=== PATIENT | female | born 1985 | race Caucasian/White ===

== ENCOUNTER → 2020-03-30 | Outpatient (CLI) | payer OTHER, SELFPAY ==
[2020-03-30 14:43] VITALS: BMI 25.4
[2020-04-02 13:44] LABS: HPV APTIMA, High Risk Negative (Negative)
== END | disposition home or self-care (01) ==
LOC: LABSPEC 16:01
PROVIDERS: Referring Provider Nurse Practitioner Women's Health; Visit Provider Nurse Practitioner Women's Health
DX: Z12.4 Encounter for screening for malignant neoplasm of cervix (principal)
CPT/HCPCS: 87624; 88175; G0145

== ENCOUNTER 2021-03-18 08:42 | Emergency (ER) | payer OTHER, SELFPAY ==
[2021-03-18 08:43] VITALS: BP 150/91; PULSE 77; RESP 15; TEMP 36.8; O2SAT 100; BMI 26.5
[2021-03-18 08:55] LABS: Bedside Glucose 88 mg/dL (70-110)
--- NOTE | 2021-03-18 08:56 | EKG12_ITS ---
Test Reason : NEURO S\SX Blood Pressure : / mmHG Vent. Rate : 076 BPM Atrial Rate : 076 BPM P-R Int : 156 ms QRS Dur : 088 ms QT Int : 364 ms P-R-T Axes : 057 056 055 degrees QTc Int : 409 ms Normal sinus rhythm Normal ECG Confirmed by NORA MENENDEZ, DENISHA ([id number]), restaurant expeditor GIAN GUTIERREZ ([id number]) on 03/19/2021 9:32:23 AM Referred By: LETTY Confirmed By:DENISHA MELENDEZ MD
--- NOTE | 2021-03-18 08:56 | CT_ITS ---
STUDY: CT BRAIN WITHOUT CONTRAST REASON FOR EXAM: Female, 35 years old. Headache, paraesthesias. Blurred vision. RADIATION DOSAGE (If Supplied By Facility): CTDIvol = ( 44.99 ) mGy, DLP = ( 745.49 ) mGycm TECHNIQUE: Transaxial CT imaging of the brain was performed without administration of intravenous contrast material. Individualized dose optimization techniques were used for this CT. COMPARISON: No relevant priors. FINDINGS: Normal soft tissue structures. Normal calvarium. Normal size ventricles and extra-axial spaces for the patient''s age. Normal white matter tracts of the cerebral hemispheres. Normal basal ganglia and thalami. Normal brainstem. Normal cerebellum. There is no intracranial hemorrhage. There are no findings of an acute ischemic infarction. Normal visualized paranasal sinuses. CT/Brain/Head without Contrast IMPRESSION: Normal unenhanced CT scan of the brain. Electronically Signed: Kristian Preston MD at 9:33 EST , Service support ,
--- NOTE | 2021-03-18 08:58 | EX.ED.DYSGE1 ---
HPI History of Present Illness Chief Complaint: Numb/Ting Detail of Chief Complaint: Numbness and tingling in the hands and face Informant: patient Narrative Narrative: Patient presents with numbness and tingling in the hands and face that initially started yesterday. Patient states she has had episodes like this 2 or 3 times a year for the last 6 years. She seen her primary care physician and went to ER once but has never had any type of work-up for this. Patient states that in the past she is also passed out with these episodes but not for several years. Normally if she sleeps the episodes resolve. She was concerned today because the symptoms started yesterday and then they started happening again today. Today she complains of a little bit of a headache as well. She denies paresthesias in her feet but only her hands and her face. Patient currently being treated for sinus infection with amoxicillin and she has been on that for about a week. She denies any fevers. Patient states she was tested for COVID several weeks ago and was negative. She has not been vaccinated against COVID-19. Prior similar symptoms: Yes PFSH PFSH Medical History (Updated 03/18/21 @ 10:[address] Little Hanley, DO) PMS (premenstrual syndrome) Home Medications norethindrone 1.5 mg-ethinyl estradiol 30 mcg(21)/iron 75 mg(7) tablet 1 tab PO DAILY #84 tab 04/13/20 [Rx Last Taken Unknown] Allergy/AdvReac Type Severity Reaction Status Date / Time No Known Allergies Allergy Verified 03/18/21 08:45 Family History (Updated 03/30/20 @ 14:46 by Amberly Cook) Grandmother Diabetes Colon cancer Surgical History History of tonsillectomy [place] teeth extracted Social History (Updated 03/30/20 @ 15:23 by Cary Figueroa NP, [employer]) number of children: 0 current occupational status: employed current occupation: [employer] Smoking Status: Never smoker alcohol intake: current alcohol intake frequency: holidays/special occasions only substance use type: does not use seatbelt use: always do you feel safe at home: Yes ROS ROS ED Constitutional Constitutional ED: Reports systems reviewed and no addt'l complaints, except as documented; Denies body ache(s), change in weight or chills Eyes Eyes: Denies acute decrease in peripheral vision, change in vision, double vision or loss of vision ENT ENT ED: Reports none; Denies ear pain, lip swelling, loss taste/smell, neck pain, otalgia or sore throat Cardiovascular Cardiovascular: Reports none; Denies abdominal pain, chest pain with activity, leg edema, lightheadedness, palpitations, rapid heart rate or syncope Respiratory/Chest Respiratory/Chest: Reports none; Denies change in mental status, dry cough, dyspnea, hemoptysis, shortness of breath at rest or shortness of breath with exertion Gastrointestinal Gastrointestinal: Reports none; Denies abdominal pain, change in stool character, diarrhea, hematemesis, hematochezia, melena, rectal bleeding or vomiting Genitourinary Genitourinary ED: Reports none; Denies abdominal discomfort, anuria, dysuria, genital pain or polyuria Musculoskeletal Musculoskeletal: Reports none; Denies arthralgias, back pain, difficulty walking, extremity pain, muscle weakness or myalgias Integumentary Reports none; Denies abscess or rash Neurologic Neurologic: Reports none, headache(s) and paresthesias; Denies abnormal gait, confusion, focal weakness, frequent falls, loss of vision, numbness, radicular pain, vertigo or weakness Psychiatric Psychiatric: Reports systems reviewed and no addt'l complaints, except as documented and none; Denies behavioral changes, confusion, difficulty concentrating, hallucinations, suicidal ideation, tactile hallucinations or visual hallucinations Endocrine Endocrinology: Denies none, cold intolerance, excessive sweating, fatigue or heat intolerance Hematologic/Lymphatic Hematologic/Lymphatic: Reports none; Denies anemia, easy bleeding or easy bruising Allergic/Immunologic Allergic/Immunologic ED: Denies as per HPI, none, lip swelling, mouth swelling, throat swelling, tongue swelling or hives EXAM Physical Exam Const Vital Signs: 03/18/21 08:43 Temperature 98.3 F Temperature Source Temporal Pulse Rate 77 Respiratory Rate 15 Blood Pressure 150/91 H Blood Pressure Mean 110 Pulse Ox 100 Oxygen Delivery Method Room Air Positive well nourished and well developed General Appearance ED: well developed and NAD HEENT Reports TM's clear and moist mucous membranes normocephalic and atraumatic; Negative for trauma or tenderness Tympanic Membrane ED: Yes TM's clear Eyes PERRL and EOMs intact bilaterally General Eye ED: Negative for pale conjunctiva or scleral icterus Neck no lymphadenopathy, supple and no JVD General: Negative for tenderness Chest Wall inspection of chest normal and palpation of chest normal Chest: Negative for tenderness Resp normal respiratory effort and clear to auscultation bilaterally Effort and Inspection: Negative for respiratory distress or pain with movement Auscultation: Negative for rhonchi, wheezes or diminished lung sounds Cardio regular rate, regular rhythm, S1 normal heart sound, S2 normal heart sound and no murmurs Peripheral Pulses: pulses 2+ throughout GI normal to inspection, nondistended, normoactive bowel sounds, soft to palpation, non-tender, non-distended and no masses Back/Spine no CVA tenderness and no thoracic nor lumbar tenderness Extremity normal to inspection General Extremety ED: Negative for edema General Extremity: Negative for edema Neuro oriented x3, CN's II-XII intact bilaterally, no sensory deficits noted and gait normal Neuro Narrative: No focal neurologic deficits noted. Fundi benign. Sensorium / Orientation: awake, alert, oriented to person, oriented to place and oriented to time Motor Exam: strength 5/5 throughout and strength abnormal Psych mental status grossly normal Skin no rashes or lesions noted and no wounds MDM MDM MDM Narrative Medical decision making narrative: IV line established. Patient placed on a laboratory monitor. Lab work-up was unremarkable. COVID-[address] scan of the brain without contrast was unremarkable. Initially wanted to treat her like a possible complex migraine and gave her Reglan, Benadryl, and Toradol as well as a liter of fluid however she refused the medications as she stated that her headache was minimal currently. At this point etiology of patient's symptomatology unclear although it has been ongoing for 6 years or so. I suspect possibility of a complex migraine. Patient advised to follow-up with her primary care physician and possible neurology referral if symptoms persist. Lab Data Attestation: I reviewed the patient's lab results. Labs: Laboratory Results - last 24 hr 03/18/21 03/18/21 03/18/21 08:49 09:08 09:08 WBC 7.3 RBC 3.92 L Hgb 11.5 L Hct 35.7 L MCV 91.1 MCH 29.3 MCHC 32.2 RDW Std Deviation 42.8 RDW Coeff of Juan 13.1 Plt Count 354 MPV 9.1 Immature Gran % (Auto) 0.300 Neut % (Auto) 73.8 H Lymph % (Auto) 19.1 [place] % (Auto) 5.4 Eos % (Auto) 1.1 Baso % (Auto) 0.3 Absolute Neuts (auto) 5.4 Absolute Lymphs (auto) 1.39 Nucleated RBC % 0 Sodium 139 Potassium 3.9 Chloride 108 H Carbon Dioxide 25.0 Anion Gap 6 BUN 14 Creatinine 0.75 Estim Creat Clear Calc 88.26 Est GFR (MDRD) Af Amer 114 Est GFR (MDRD) Non-Af 94 BUN/Creatinine Ratio 18.7 Glucose 96 Calcium 9.0 Serum , Qual POC Glucose 88 03/18/21 09:08 WBC RBC Hgb Hct MCV MCH MCHC RDW Std Deviation RDW Coeff of Juan Plt Count MPV Immature Gran % (Auto) Neut % (Auto) Lymph % (Auto) [place] % (Auto) Eos % (Auto) Baso % (Auto) Absolute Neuts (auto) Absolute Lymphs (auto) Nucleated RBC % Sodium Potassium Chloride Carbon Dioxide Anion Gap BUN Creatinine Estim Creat Clear Calc Est GFR (MDRD) Af Amer Est GFR (MDRD) Non-Af BUN/Creatinine Ratio Glucose Calcium Serum , Qual NEGATIVE POC Glucose Radiography Diagnostic Testing: Clinical Impression(s) from Imaging Studies Brain CT 03/18/21 08:56 IMPRESSION: Normal unenhanced CT scan of the brain. Electronically Signed: Kristian Preston MD at 9:33 EST , Service support , EKG Initial EKG: Attestation: I personally reviewed and interpreted this EKG as follows: Comments: Sinus rhythm with a ventricular rate of 76 bpm with no acute ST segment change Discharge Plan Triage Chief Complaint: Numb/Ting ED Provider: Little Hanley Dx/Rx/DC Orders Clinical Impression: Paresthesias Instructions: ED Paraesthesias Prescriptions: No Action norethindrone-e.estradiol-iron [ (28)] 1.5 mg-30 mcg (21)/75 mg (7) tablet 1 tab PO DAILY Qty: 84 RF: 4 Primary Care Provider: Bushra Albrecht Referrals: Bushra Albrecht MD [Primary Care Provider] - 3-5 Days Disposition Disposition: Home, Self Care
[2021-03-18 09:20] LABS: Absolute Lymphocyte Count 1.39 X10^3/uL (0.83-4.51); Absolute Neutrophil Count 5.4 X10^3/uL (2.0-7.7); Basophil# 0.02 X10^3/uL; Basophil% 0.3 % (0-1); Eosinophil# 0.08 X10^3/uL; Eosinophils% 1.1 % (0-5); Hematocrit 35.7 % (37-47); Hemoglobin 11.5 g/dL (12.0-15.0); Lymphocyte # 1.39 X10^3/ul (0.83-4.51); Lymphocyte % 19.1 % (19-41); Mean Corp Hgb Conc 32.2 g/dL (32-36); Mean Corpuscular Hgb 29.3 pg (27.0-32.0); Mean Corpuscular Volume 91.1 fL (81-99); Mean Platelet Vol. 9.1 fl (6.2-12.0); Monocyte# 0.39 X10^3/uL; Monocyte% 5.4 % (0-10); NRBC Flagged by Analyzer 0 % (0-5); Neutrophil # 5.37 X10^3/uL (2.7-7.7); Neutrophil % 73.8 % (47-70); Platelet Count 354 K/mm3 (150-450); RBC Distribution Width CV 13.1 % (11.6-14.6); RBC Distribution Width SD 42.8 fl (35.1-43.9); Red Blood Count 3.92 M/mm3 (4.2-5.4); White Blood Count 7.3 K/mm3 (4.4-11.0)
[2021-03-18 09:34] LABS: Anion Gap 6 (5-15); BUN 14 mg/dL (7-18); BUN/Creat Ratio 18.7 RATIO (10-20); Chloride 108 mmol/L (98-107); Creatinine, Serum 0.75 mg/dL (0.55-1.02); EST Glomerular Filtration Rate 94 mL/min (>60); Est Glom Filt Rate - Afr Amer 114 mL/min (>60); Estimated Creatinine Clearance 88.26 ml/min; Glucose 96 mg/dL (74-106); Potassium 3.9 mmol/L (3.5-5.1); Sodium Level 139 mmol/L (136-145)
[2021-03-18 09:58] LABS: Internal QC Validated? YES +Cl - CLEAR BKGD; Pregnancy, Serum, hCG Quali. NEGATIVE Negative
[2021-03-18 10:11] VITALS: BP 125/81; PULSE 69; RESP 13; O2SAT 99
== END 2021-03-18 10:19 | disposition home or self-care (01) ==
PROVIDERS: Emergency Provider Emergency Medicine; PCP Family Medicine; Visit Provider Emergency Medicine
DX: R20.2 Paresthesia of skin (principal)
CPT/HCPCS: 70450; 80048; 82962; 84703; 85025; 87426; 93005; 99284; A4216

== ENCOUNTER 2021-06-16 16:27 | Outpatient (CLI) | payer OTHER, SELFPAY ==
[2021-06-22 20:04] LABS: HPV APTIMA, High Risk Negative (Negative)
== END 2021-06-16 23:59 | disposition home or self-care (01) ==
PROVIDERS: PCP Family Medicine; Referring Provider Nurse Practitioner Women's Health; Visit Provider Nurse Practitioner Women's Health
DX: Z12.4 Encounter for screening for malignant neoplasm of cervix (principal)
CPT/HCPCS: 87624; 88175; G0145

== ENCOUNTER 2022-04-01 10:08 | Emergency (ER) | payer OTHER, SELFPAY ==
[2022-04-01 10:09] VITALS: BP 135/78; PULSE 82; RESP 17; TEMP 35.8; O2SAT 97; BMI 22.4
--- NOTE | 2022-04-01 10:27 | EKG12_ITS ---
Test Reason : Blood Pressure : / mmHG Vent. Rate : 080 BPM Atrial Rate : 080 BPM P-R Int : 136 ms QRS Dur : 076 ms QT Int : 360 ms P-R-T Axes : 049 049 055 degrees QTc Int : 415 ms Normal sinus rhythm Normal ECG Confirmed by LEE MENENDEZ, ARTUR ([id number]), department editor GIAN GUTIERREZ ([id number]) on 04/05/2022 8:59:31 AM Referred By: BERNABE Confirmed By:ARTUR HOWARD MD
--- NOTE | 2022-04-01 10:38 | EDS_ITS ---
HPI History of Present Illness Chief Complaint: Palpitations Informant: patient Narrative Narrative: Presents with intermittent palpitations on and off for past 2 days lasting at most 20 minutes occasional lightheaded symptoms. Previous similar symptoms in the past. She has had migraine and few syncopes in the past she has had EEG studies as an outpatient were negative. A week ago states had a migraine symptoms with syncope resolved. Denies recent cough surgeries immobilizations. No history of PE or DVT. Denies dyspnea. Denies any urinary symptoms. Denies recent vomiting or diarrhea. She states had EKGs in the past however has never had Holter monitor. She currently manages her symptoms by her PCP. Prior similar symptoms: Yes PFSH PFSH Medical History Anxiety Migraines PMS (premenstrual syndrome) Home Medications fluoxetine 10 mg capsule (Prozac) 10 mg PO DAILY 06/16/21 [History Last Taken Unknown] topiramate 50 mg tablet (Topamax) 50 mg PO DAILY 06/16/21 [History Last Taken Unknown] valacyclovir 500 mg tablet (Valtrex) 500 mg PO DAILY #90 tabs 06/16/21 [Rx Last Taken Unknown] Allergy/AdvReac Type Severity Reaction Status Date / Time No Known Allergies Allergy Verified 04/01/22 10:08 Family History Grandmother Diabetes Colon cancer Surgical History History of tonsillectomy [place] teeth extracted Social History number of children: 0 current occupational status: employed current occupation: [employer] Smoking Status: Never smoker alcohol intake: current alcohol intake frequency: holidays/special occasions only substance use type: does not use seatbelt use: always do you feel safe at home: Yes ROS ROS ED Constitutional Constitutional ED: Denies chills, fever(s) or sweats Eyes Eyes: Denies change in vision ENT ENT ED: Denies dysphagia or sore throat Cardiovascular Cardiovascular: Reports palpitations; Denies chest pain, leg edema or racing heartbeat Respiratory/Chest Respiratory/Chest: Denies cough, dyspnea or dyspnea on exertion Gastrointestinal Gastrointestinal: Denies abdominal pain, diarrhea, nausea or vomiting Genitourinary Genitourinary ED: Denies dysuria, hematuria or urinary frequency Musculoskeletal Musculoskeletal: Denies back pain, extremity pain or neck pain Integumentary Denies rash or wounds Neurologic Neurologic: Denies headache(s), paresthesias or weakness EXAM Physical Exam Const Vital Signs: 04/01/22 10:09 04/01/22 10:25 04/01/22 12:08 Temperature 96.4 F L Temperature Source Temporal Pulse Rate 82 70 Respiratory Rate 17 16 Respiratory Effort Normal Non-Labored Respiratory Pattern Normal Blood Pressure 135/78 H 126/89 H Blood Pressure Mean 97 Pulse Ox 97 98 Oxygen Delivery Method Room Air Positive well nourished and well developed General Appearance ED: well developed and NAD HEENT Reports moist mucous membranes normocephalic and atraumatic Eyes PERRL, EOMs intact bilaterally and conjunctivae normal General Eye ED: Yes normal appearance of both eyes Neck no lymphadenopathy and supple General: Negative for tenderness Chest Wall Chest: Negative for tenderness Resp normal respiratory effort and normal air movement Effort and Inspection: symmetric chest movement; Negative for respiratory distress Cardio regular rate, regular rhythm and no murmurs Peripheral Pulses: pulses 2+ throughout GI normal to inspection, nondistended, normoactive bowel sounds and non-tender Palpation: Negative for guarding or rebound tenderness present Back/Spine no CVA tenderness and no thoracic nor lumbar tenderness Extremity normal to inspection General Extremety ED: Negative for edema or tenderness General Extremity: Negative for edema Neuro oriented x3, CN's II-XII intact bilaterally and no sensory deficits noted Sensorium / Orientation: awake and alert Skin no rashes or lesions noted and no wounds MDM MDM MDM Narrative Medical decision making narrative: Patient recurrent intermittent palpitations last 4 days asymptomatic during my evaluation. Differentials dysrhythmia is from SVT, A. fib, a flutter, VT, V. tach. She has no dyspnea, PERC criteria negative therefore less likely PE concerns. We will check labs for electrolyte abnormalities. Her EKG is sinus rhythm. Labs are all normal. Asymptomatic reevaluation. She is set up for 48-hour Holter monitoring with outpatient follow-up. Return precaution discussed. All questions were answered. Lab Data Attestation: I reviewed the patient's lab results. Labs: Laboratory Results - last 24 hr 02/05/1904/01/22 04/01/22 10:40 10:40 10:40 WBC 6.6 RBC 3.90 L Hgb 11.8 L Hct 36.9 L MCV 94.6 MCH 30.3 MCHC 32.0 RDW Std Deviation 43.8 RDW Coeff of Juan 12.6 Plt Count 327 MPV 9.0 Immature Gran % (Auto) 0.300 Neut % (Auto) 68.8 Lymph % (Auto) 22.0 [place] % (Auto) 4.9 Eos % (Auto) 3.2 Baso % (Auto) 0.8 Absolute Neuts (auto) 4.5 Absolute Lymphs (auto) 1.45 Nucleated RBC % 0 Sodium 142 Potassium 3.9 Chloride 108 H Carbon Dioxide 24.0 Anion Gap 10 BUN 12 Creatinine 0.78 Estim Creat Clear Calc 84.07 Est GFR (MDRD) Af Amer 109 Est GFR (MDRD) Non-Af 90 BUN/Creatinine Ratio 15.5 Glucose 103 Calcium 8.8 Magnesium 2.4 TSH 0.85 Serum , Qual NEGATIVE EKG Initial EKG: Attestation: I personally reviewed and interpreted this EKG as follows: Comments: Sinus rate of 80, no ST or T wave changes QTC 415. Discharge Plan Triage Chief Complaint: Palpitations ED Provider: Sharan Peralta Dx/Rx/DC Orders Clinical Impression: Palpitation, History of migraine, History of syncope Instructions: Causes of Syncope, ED Palpitations Prescriptions: No Action fluoxetine [Prozac] 10 mg capsule 10 mg PO DAILY topiramate [Topamax] 50 mg tablet 50 mg PO DAILY valacyclovir [Valtrex] 500 mg tablet 500 mg PO DAILY Qty: 90 3RF Primary Care Provider: Bushra Albrecht Referrals: Bushra Albrecht MD [Primary Care Provider] - 3-5 Days Activity Restrictions/Additional Instructions: Laboratory studies are normal. 48-hour Holter monitor placed for you. Follow- up with your doctor. Return if recurrent or worsening symptoms. Disposition Disposition: Home, Self Care Discharge Date/Time: 04/01/22 12:28
[2022-04-01 10:51] LABS: Absolute Lymphocyte Count 1.45 X10^3/uL (0.83-4.51); Absolute Neutrophil Count 4.5 X10^3/uL (2.0-7.7); Basophil# 0.05 X10^3/uL; Basophil% 0.8 % (0-1); Eosinophil# 0.21 X10^3/uL; Eosinophils% 3.2 % (0-5); Hematocrit 36.9 % (37-47); Hemoglobin 11.8 g/dL (12.0-15.0); Lymphocyte # 1.45 X10^3/ul (0.83-4.51); Mean Corpuscular Hgb 30.3 pg (27.0-32.0); Mean Corpuscular Volume 94.6 fL (81-99); Monocyte# 0.32 X10^3/uL; Monocyte% 4.9 % (0-10); NRBC Flagged by Analyzer 0 % (0-5); Neutrophil # 4.54 X10^3/uL (2.7-7.7); Neutrophil % 68.8 % (47-70); Platelet Count 327 K/mm3 (150-450); RBC Distribution Width CV 12.6 % (11.6-14.6); RBC Distribution Width SD 43.8 fl (35.1-43.9); White Blood Count 6.6 K/mm3 (4.4-11.0)
[2022-04-01 11:13] LABS: Anion Gap 10 (5-15); BUN 12 mg/dL (7-18); BUN/Creat Ratio 15.5 RATIO (10-20); Calcium,Total 8.8 mg/dL (8.5-10.1); Chloride 108 mmol/L (98-107); Creatinine, Serum 0.78 mg/dL (0.55-1.02); EST Glomerular Filtration Rate 90 mL/min (>60); Est Glom Filt Rate - Afr Amer 109 mL/min (>60); Estimated Creatinine Clearance 84.07 ml/min; Glucose 103 mg/dL (74-106); Magnesium 2.4 mg/dL (1.6-2.6); Potassium 3.9 mmol/L (3.5-5.1); Sodium Level 142 mmol/L (136-145); Thyroid Stim Hormone (TSH) 0.85 uIU/mL (0.358-3.74)
[2022-04-01 11:58] LABS: Internal QC Validated? YES +Cl - CLEAR BKGD; Pregnancy, Serum, hCG Quali. NEGATIVE Negative
[2022-04-01 12:08] VITALS: BP 126/89; PULSE 70; RESP 16; O2SAT 98
--- NOTE | 2022-04-01 12:25 | ED.RN ---
tammie from resp in to place 48hr holter and to give instructions. dc instructions given
== END 2022-04-01 12:28 | disposition home or self-care (01) ==
PROVIDERS: Emergency Provider Emergency Medicine; PCP Family Medicine; Visit Provider Emergency Medicine
DX: R00.2 Palpitations (principal); G43.909 Migraine, unspecified, not intractable, without status migrainosus; R55 Syncope and collapse
CPT/HCPCS: 80048; 83735; 84443; 84703; 85025; 93005; 99284; A4216

== ENCOUNTER → 2022-04-01 | Outpatient (CLI) | payer OTHER, SELFPAY | END | disposition home or self-care (01) | LOC: CVS 11:37 | PROVIDERS: PCP Family Medicine; Visit Provider Emergency Medicine | DX: R00.2 Palpitations (principal) | CPT/HCPCS: 93225; 93226 ==

== ENCOUNTER → 2022-06-21 | Outpatient (CLI) | payer OTHER, SELFPAY ==
[2022-06-21 17:08] LABS: HIV - WCH Non-Reactive (Nonreactive); Hepatitis C Antibody Non-Reactive (Nonreactive); Syphilis Antibodies Non-reactive
[2022-06-24 04:07] LABS: Chlamydia By Nucleic Acid AMP Negative (Negative); Gonococcus By Nucleic Acid AMP Negative (Negative)
[2022-06-28 14:09] LABS: HPV APTIMA, High Risk Negative (Negative)
== END | disposition home or self-care (01) ==
PROVIDERS: PCP Family Medicine; Referring Provider Nurse Practitioner Women's Health; Visit Provider Nurse Practitioner Women's Health
DX: Z12.4 Encounter for screening for malignant neoplasm of cervix (principal); Z20.2 Contact with and (suspected) exposure to infections with a predominantly sexual mode of transmission
CPT/HCPCS: 36415; 86703; 86780; 86803; 87491; 87591; 87624; 88175; G0145

== ENCOUNTER → 2023-07-17 | Outpatient (CLI) | payer OTHER, SELFPAY ==
[2023-07-17 07:47] LABS: Absolute Neutrophil Count 3.5 X10^3/uL (2.0-7.7); Basophil# 0.03 X10^3/uL; Basophil% 0.5 % (0-1); Eosinophil# 0.18 X10^3/uL; Hematocrit 36.6 % (37-47); Hemoglobin 11.6 g/dL (12.0-15.0); Lymphocyte % 31.7 % (19-41); Mean Corp Hgb Conc 31.7 g/dL (32-36); Mean Corpuscular Hgb 29.5 pg (27.0-32.0); Mean Corpuscular Volume 93.1 fL (81-99); Mean Platelet Vol. 8.5 fl (6.2-12.0); Monocyte# 0.38 X10^3/uL; Monocyte% 6.3 % (0-10); NRBC Flagged by Analyzer 0 % (0-5); Neutrophil # 3.49 X10^3/uL (2.7-7.7); Neutrophil % 58.3 % (47-70); Platelet Count 341 K/mm3 (150-450); RBC Distribution Width SD 44.6 fl (35.1-43.9); Red Blood Count 3.93 M/mm3 (4.2-5.4)
[2023-07-17 08:22] LABS: Estradiol 59.9 pg/mL; Follicle Stimulating Hormone 7.4 mIU/mL; T4 Free Direct 0.85 ng/dL (0.76-1.46); Thyroid Stim Hormone (TSH) 1.16 uIU/mL (0.358-3.74)
[2023-07-24 01:06] LABS: Testosterone Free 1.2 pg/mL (0.0-4.2); Thyroid Peroxidase AB < 9 IU/mL (0-34)
== END | disposition home or self-care (01) ==
LOC: PAVLAB 07:31
PROVIDERS: PCP Family Medicine; Referring Provider Nurse Practitioner Women's Health; Visit Provider Nurse Practitioner Women's Health
DX: Z13.29 Encounter for screening for other suspected endocrine disorder (principal); N91.5 Oligomenorrhea, unspecified; L70.9 Acne, unspecified; Z13.21 Encounter for screening for nutritional disorder
CPT/HCPCS: 36415; 82306; 82670; 83001; 84402; 84439; 84443; 85025; 86376

== ENCOUNTER 2024-01-20 08:53 | Emergency (ER) | payer OTHER, SELFPAY ==
[2024-01-20 08:53] VITALS: BP 147/100; BP 149/104; PULSE 109; PULSE 114; RESP 16; RESP 20; TEMP 36.3; O2SAT 100; O2SAT 97; BMI 27.3
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
[2024-01-20 09:32] LABS: Absolute Lymphocyte Count 1.65 X10^3/uL (0.83-4.51); Absolute Neutrophil Count 5.8 X10^3/uL (2.0-7.7); Basophil# 0.03 X10^3/uL; Basophil% 0.4 % (0-1); Eosinophil# 0.14 X10^3/uL; Eosinophils% 1.7 % (0-5); Hematocrit 37.5 % (37-47); Hemoglobin 12.2 g/dL (12.0-15.0); Lymphocyte # 1.65 X10^3/ul (0.83-4.51); Lymphocyte % 20.4 % (19-41); Mean Corp Hgb Conc 32.5 g/dL (32-36); Mean Corpuscular Hgb 29.9 pg (27.0-32.0); Mean Corpuscular Volume 91.9 fL (81-99); Mean Platelet Vol. 8.6 fl (6.2-12.0); Monocyte# 0.44 X10^3/uL; Monocyte% 5.5 % (0-10); NRBC Flagged by Analyzer 0 % (0-5); Neutrophil # 5.79 X10^3/uL (2.7-7.7); Neutrophil % 71.8 % (47-70); Platelet Count 322 K/mm3 (150-450); RBC Distribution Width CV 13.4 % (11.6-14.6); RBC Distribution Width SD 45.3 fl (35.1-43.9); Red Blood Count 4.08 M/mm3 (4.2-5.4); White Blood Count 8.1 K/mm3 (4.4-11.0)
[2024-01-20 09:42] LABS: Internal QC Validated? YES +Cl - CLEAR BKGD; Pregnancy, Serum, hCG Quali. NEGATIVE Negative
[2024-01-20 09:49] LABS: Anion Gap 6 (5-15); BUN 11 mg/dL (7-18); BUN/Creat Ratio 12.8 RATIO (10-20); Calcium,Total 9.1 mg/dL (8.5-10.1); Chloride 107 mmol/L (98-107); Creatinine, Serum 0.86 mg/dL (0.55-1.02); EST Glomerular Filtration Rate 79 mL/min (>60); Est Glom Filt Rate - Afr Amer 96 mL/min (>60); Glucose 102 mg/dL (74-106); Sodium Level 138 mmol/L (136-145)
[2024-01-20 09:53] LABS: Alcohol, Blood (Medical)-Serum < 3.0 mg/dL
[2024-01-20 09:58] LABS: Amphetamine Urine VISTA NEGATIVE (<1000 ng/mL); Barbiturate Urine VISTA NEGATIVE (< 200 ng/mL); Benzodiazepine Urine VISTA NEGATIVE (< 200 ng/mL); Cocaine Urine VISTA NEGATIVE (< 300 ng/mL); Ecstacy Urine VISTA NEGATIVE (< 500 ng/mL); Methadone Urine VISTA NEGATIVE (< 300 ng/mL); PCP Urine VISTA NEGATIVE (< 25 ng/mL); THC Urine VISTA NEGATIVE (< 50 ng/mL); Vista UDS pH Range 7
[2024-01-20 11:31] VITALS: BP 128/64; PULSE 78; RESP 16; TEMP 36.6; O2SAT 99
== END 2024-01-20 11:33 | disposition home or self-care (01) ==
PROVIDERS: Emergency Provider Emergency Medicine; PCP Family Medicine; Visit Provider Emergency Medicine
DX: F43.0 Acute stress reaction (principal); Z63.0 Problems in relationship with spouse or partner; F41.9 Anxiety disorder, unspecified; F32.A Depression, unspecified
CPT/HCPCS: 80048; 80307; 82077; 84703; 85025; 99283

== ENCOUNTER → 2024-05-21 | Outpatient (CLI) | payer BC, SELFPAY ==
--- NOTE | 2024-05-21 16:20 | RAD_ITS ---
EXAM: Abdomen single view CLINICAL HISTORY: Sitz markers day 3 COMPARISON: None available TECHNIQUE: Single supine AP view of the abdomen FINDINGS: Approximately 8 Sitz markers are seen at the right colon. Approximately 12 markers are seen at the left colon. 1 marker is seen at the sigmoid. Gas and stool within the colon appears moderate at the ascending colon. No gaseous distention of bowel. Bilateral pelvic phleboliths. RAD/Abdomen Single View IMPRESSION: Sitz markers as above. Reading Location: [id number]
== END | disposition home or self-care (01) ==
LOC: RAD 16:16
PROVIDERS: PCP Family Medicine; Referring Provider Student in an Organized Health Care Education/Training Program; Visit Provider Student in an Organized Health Care Education/Training Program
DX: K59.00 Constipation, unspecified (principal)
CPT/HCPCS: 74018

== ENCOUNTER → 2024-05-23 | Outpatient (CLI) | payer BC, SELFPAY ==
--- NOTE | 2024-05-23 16:32 | RAD_ITS ---
EXAM: Abdominal single-view x-ray CLINICAL HISTORY: Sitz markers day 5 COMPARISON: 05/21/2024 TECHNIQUE: 2 supine AP views to include the entire abdomen and pelvis FINDINGS: Progression of Sitz markers. 1 marker remains at the proximal transverse colon. 8 markers are seen at the left colon. 3 markers within the sigmoid/rectum. Overall there is a dlqammew-nt-srcco amount of colonic stool. No gaseous distention of bowel. Pelvic phleboliths noted. RAD/Abdomen Single View IMPRESSION: Progression of markers as above. Cakuclqo-yu-kinml amount of colonic stool. Reading Location: [id number]
== END | disposition home or self-care (01) ==
LOC: RAD 16:29
PROVIDERS: PCP Family Medicine; Referring Provider Student in an Organized Health Care Education/Training Program; Visit Provider Student in an Organized Health Care Education/Training Program
DX: K59.00 Constipation, unspecified (principal)
CPT/HCPCS: 74018

== ENCOUNTER 2024-08-14 07:52 | Day surgery (SDC) | payer BC, SELFPAY ==
--- NOTE | 2024-08-08 13:55 | PAT.ANESEVAL ---
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 When Was Last Pacemaker Check QUESTION #4 FULL TEXT: You/Your Family Experience fever (hyperthermia) with Anesthesia Last Oral Intake Last Oral intake: Last Oral Intake NPO since Meds taken in AM with sips of water? Meds patient instructed to take am of surgery PONV PONV - assembler dc field yoke: PONV - assembler dc field yoke Female Yes 08/08/24 11:45 HX of Motion Sickness No 08/08/24 11:45 HX of N/V After Surgery No 08/08/24 11:45 Non-Smoker Yes 08/08/24 11:45 Duration of Surgery greater No 08/08/24 11:45 than 60 minutes Number of Risk Factors 2 08/08/24 11:45 PONV Score Moderate Risk 08/08/24 11:45 Height & Weight Height & Weight: Anesthesia: Height & Weight Height 5 ft 3 in 05/06/24 11:31 Respiratory Assessment Respiratory Assessment - assembler dc field yoke: Respiratory Tract Infection Hx - assembler dc field yoke Hx Respiratory Tract Infection No 08/08/24 11:45 STOP Sleep Apnea STOP Sleep Apnea - assembler dc field yoke: STOP Sleep Apnea - assembler dc field yoke Hx Hypertension No 08/08/24 11:45 Hx Sleep Apnea No 08/08/24 11:45 CPAP BIPAP Do you snore loudly (louder No 08/08/24 11:45 than talking or can be heard Do you often feel tired/ No 08/08/24 11:45 fatigued/ sleepy during daytime? Has anyone observed you stop No 08/08/24 11:45 breathing during sleep? STOP Results Negative 08/08/24 11:45 QUESTION #5 FULL TEXT : Do you snore loudly (louder than talking or can be heard through closed doors)? 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 Specify any problems Hx of Preganancy in last 3 No 08/08/24 11:45 Months Nurse Filling Out Transfusion VCHRISTIN 08/08/24 11:45 & Questions: Date: 08/08/24 08/08/24 11:45 Time: 11:46 08/08/24 11:45 Patient unable to answer at this time (ie. confused, unrespo /Reproduction History /Reproductive History - assembler dc field yoke: /Reproductive Hx- assembler dc field yoke Hx Now No 08/08/24 11:45 Gestational Age (in weeks): EDC: Hx Hx Para Hx Section SAB No 08/08/24 11:45 [facility], [facility] Medical History (Updated 08/08/24 @ 11:45 by Jenniffer Kat) Wears glasses Gastric reflux Non-smoker History of Holter monitoring Anxiety Migraines PMS (premenstrual syndrome) Home Medications ?Medication ?Instructions ?Recorded ?Last Taken ?Type cholecalciferol (vitamin D3) 50 50 mcg PO DAILY 04/21/23 Unknown History mcg (2,000 unit) tablet (Vitamin D3) cyanocobalamin (vitamin B-12) 2,500 mcg sublingual DAILY 04/21/23 Unknown History 2,500 mcg sublingual tablet (Vitamin B-12) ferrous sulfate 325 mg (65 mg 325 mg PO DAILY 04/21/23 08/05/24 History iron) tablet guanfacine 2 mg tablet,extended 2 mg PO DAILY 04/21/23 08/05/24 History release 24 hr hydroxyzine HCl 25 mg tablet 25 mg PO BID PRN anxiety 04/21/23 Unknown History polyethylene glycol 3350 17 17 g PO DAILY PRN constipation 04/21/23 Unknown History gram/dose oral powder (Miralax) amitriptyline 75 mg tablet 75 mg PO QHS 06/26/23 Unknown History valacyclovir 500 mg tablet 500 mg PO DAILY #90 tabs 06/26/23 Unknown Rx (Valtrex) magnesium 250 mg tablet 250 mg PO QHS 08/08/24 Unknown History Allergy/AdvReac Type Severity Reaction Status Date / Time No Known Allergies Allergy Verified 08/08/24 11:37 Family History Grandmother Diabetes Colon cancer Surgical History [place] teeth extracted History of tonsillectomy Social History (Updated 07/08/24 @ 14:27 by Ivelisse Maria) number of children: 0 current occupational status: employed current occupation: [employer] sexually active: Yes Smoking Status: Never smoker second hand exposure: No alcohol intake: current alcohol intake frequency: holidays/special occasions only substance use type: does not use caffeine: Yes what type of physical activity do you participate in: walking and bicycling frequency: 3-4 times per week seatbelt use: always do you feel safe at home: Yes additional social history: Single Audit: Pertinent Findings Pertinent Findings EKG Perinent findings: 04/01/2022. Normal sinus rhythm 80 bpm. Recommendation Anesthesia Recommendation Anesthesia recommendation: OPTIMIZED for anesthesia
[2024-08-14] VITALS (7 sets, daily range): BP systolic 102–119; BP diastolic 64–74; PULSE 77–93; RESP 16; TEMP 36.7–36.9; O2SAT 100; BMI 26.5
--- OUTSIDE RECORDS SUMMARY | 2024-08-14 08:15 | XMS RPT_ITS | CCD ---
Author Organization [facility] Care Team Providers Care Skinner Pelts Name Role Phone Bushra Lucio Unavailable Unavailable Unavailable Dr. Bushra Lucio Primary Care Provider Dr. Bushra Lucio Referring Provider Carolina FARM OPERATIONS MANAGER, ROBBIE Townsend Attending Provider [phone] Khadijah, Dr. Bushra Jacob Referring Un available Longsdorf, Dr. Bushra Jacob Primary Care Un available Longsdorf, Dr. Bushra Jacob Attending Un available Longsdorf, Dr. Bushra Jacob Referring Un available Longsdorf, Dr. Bushra Jacob Attending Un available Longsdorf, Dr. Bushra Jacob Primary Care Un available Longsdorf, Dr. Bushra Jacob Referring Un available Longsdorf, Dr. Bushra Jacob Attending Un available Longsdorf, Dr. Bushra Jacob Primary Care Un available Longsdorf, Dr. Bushra Jacob Primary Care Un available Longsdorf, Dr. Bushra Jacob Referring Un available Longsdorf, Dr. Bushra Jacob Attending Un available Longsdorf, Dr. Bushra Jacob Primary Care Un available Longsdorf, Dr. Bushra Jacob Referring Un available Longsdorf, Dr. Bushra Jacob Attending Un available Longsdorf, Dr. Bushra Jacob Primary Care Un available Longsdorf, Dr. Bushra Jacob Referring Un available Longsdorf, Dr. Bushra Jacob Attending Un available Longsdorf, Dr. Bushra Jacob Primary Care Un available Longsdorf, Dr. Bushra Jacob Referring Un available Longsdorf, Dr. Bushra Jacob Attending Un available Bushra Lucio MD Primary Care Provider Dr. Bushra Lucio Primary Care Provider Dr. Bushra Lucio Referring Provider Carolina FARM OPERATIONS MANAGER, FARM OPERATIONS MANAGER-C Cary Attending Provider FABIO, SHERIE Attending Unavailable LONGSDORF, BUSHRA Primary Care Unavailable FABIO, SHERIE Referring Unavailable FABIO, SHERIE Attending Unavailable SELF, SELF Referring Unavailable LONGSDORF, BUSHRA Primary Care Unavailable FABIO, SHERIE Attending Unavailable LONGGORDY, BUSHRA Referring Unavailable KHADIJAH, BUSHRA Primary Care Unavailable Bushra Lucio MD Primary Care Provider Bushra Lucio MD Unavailable BUSHRA LUCIO Primary Care Unavailab le LONGGORDY, BUSHRA Hernandez Attending Unavailab le LONGSDBUSHRA PASCUAL Primary Care Unavailab le LONGSDTAMI, BUSHRA Hernandez Attending Unavailab le LONGSDORF, BUSHRA Hernandez Primary Care Unavailab JULIO CÉSAR Whiteside Attending Unava ilable BUSHRA LUCIO Primary Care JULIO CÉSAR Oswald Attending Unava ilable BUSHRA LUCIO Primary Care Dr. Bushra Thornton MD Primary Care Provide r Dr. Bushra Lucio MD Referring Provider Lia CAMACHO-CKaylin Attending Provider Hanh Limon Attending Provider Hanh Limon Referring Provider Khadijah, Bushra Referring Unavailable Longsdorf, Bushra Primary Care Unavailable Jessica Mueller Attending Unavailabl e Longsdorf, Bushra Primary Care Unavailable Longsdorf, Bushra Referring Unavailable Kaylin Fitzgerald Attending Unavailable Longsdorf, Bushra Primary Care Unavailable Longsdorf, Bushra Referring Unavailable Kaylin Fitzgerald Attending Unavailable Longsdorf, Bushra Primary Care Unavailable Longsdorf, Bushra Referring Unavailable Kaylin Fitzgerald Attending Unavailable Hanh Murrell Referring Unavailable Longsdorf, Bushra Primary Care Unavailable Hanh Murrell Attending Unavailable Longsdorf, Bushra Primary Care Unavailable Thierno Menendez Attending Unavailable Longsdorf, Bushra Primary Care Unavailable Jessica Mueller Attending Unavailabl e Longsdorf, Bushra Primary Care Unavailable Hanh Murrell Referring Unavailable Hanh Murrell Attending Unavailable Longsdorf, Bushra Primary Care Unavailable JjKalian Attending Unavailable Hanh Murrell Referring Unavailable Longsdorf, Bushra Primary Care Unavailable Hanh Murrell Attending Unavailable Hanh Murrell Attending Unavailable Longsdorf, Bushra Primary Care Unavailable Longsdorf, Bushra Referring Unavailable Medications Current Medications Medication Drug Class(es) Dates Sig (Normalized) Sig (Original) amitriptyline hydrochloride 75 mg oral tablet (11 sources) Tricyclic Antidepressant Start: 06-26-2023 take 1 tablet by mouth at bedtime Amitriptyline 75 mg tablet Active 75 mg PO AT BEDTIME June 26, 2023 12:00am Start: 12-26-2022 amitriptyline (Elavil) 100 mg tablet Start: 06-21-2022 End: 06-26-2023 take 1 tablet by mouth once daily Amitriptyline 50 mg tablet Discontinued 50 mg PO DAILY June 21, 2022 12:00am June 26, 2023 2:51pm Start: 06-10-2022 take 2 tablets by [facility] at bedtime Amitriptyline 10 MG tablet Take 2 tablets by mouth at bedtime. 60 tablet 2 06/10/2022 Active Start: 05-13-2022 End: 06-10-2022 take 1 tablet by mouth at bedtime Amitriptyline 10 MG tablet Take 1 tablet by mouth at bedtime. 30 tablet 1 05/13/2022 06/10/2022 Discontinued (Reorder) ascorbic acid 500 mg oral tablet (2 sources) Vitamin C Start: 04-21-2023 take 1 tablet by mouth once daily Ascorbic Acid (Vitamin C) 500 mg tablet Active 500 mg PO DAILY April 21, 2023 1:00am busPIRone hydrochloride 15 mg oral tablet (2 sources) Start: 12-19-2022 take 1 tablet by mouth twice daily busPIRone (Buspar) 15 mg tablet Take 1 tablet (15 mg) by mouth 2 times a day. 0 12/19/2022 Active cholecalciferol 0.05 mg oral tablet (3 sources) Vitamin D Start: 04-21-2023 take 1 tablet by mouth once daily Cholecalciferol (Vitamin D3) (Vitamin D3) 50 mcg (2,000 unit) tablet Active 50 ug PO DAILY April 21, 2023 1:00am Start: 01-03-2023 take 1 tablet by lenny th once daily Vitamin D3 50 mcg (2,000 unit) tablet Take 1 tablet (2,000 Units) by mouth once daily. 0 01/03/2023 Active [id number] 0.3 ml EPINEPHrine 1 mg/ml auto-injector (7 sources) alpha-Adrenergic Agonist, beta-Adrenergic Agonist, Catecholamine Start: 05-06-2022 EPINEPHrine 0.3 m g/0.3 mL injection syringe INJECT 0.3 ML INTRAMUSCULARLY DIRECTED 0 05/06/2022 Active Start: 04-29-2022 EPINEPHrine 0. 3 MG/0.3ML Injection Solution Auto-injector INJECT 0.3ML INTRAMUSCULARLY DIRECTED. Quantity: 1 Refills: 0 Ordered: 29-Apr-2022 Bushra Lucio MD Start : 29-Apr-2022 Active ferrous sulfate 325 mg oral tablet (3 sources) Start: 04-21-2023 take 1 tablet by mouth once daily Ferrous Sulfate 325 mg (65 mg iron) tablet Active 325 mg PO DAILY April 21, 2023 1:00am Start: 01-03-2023 take 1 tablet by lenny once daily ferrous sulfate, 325 mg ferrous sulfate, tablet Take 1 tablet by mouth once daily. 0 01/03/2023 Active 24 hr guanFACINE 2 mg extended release oral tablet (3 sources) Central alpha-2 Adrenergic Agonist Start: 04-21-2023 take 1 tablet by mouth once daily Guanfacine 2 mg tablet extended release 24 hr Active 2 mg PO DAILY April 21, 2023 1:00am Start: 01-03-2023 take 1 tablet by lenny once daily guanFACINE (Intuniv) 1 mg 24 hr tablet Take 1 tablet (1 mg) by mouth once daily. 0 01/03/2023 Active hydrOXYzine hydrochloride 25 mg oral tablet (7 sources) Antihistamine Start: 04-21-2023 take 1 tablet by mouth twice daily as needed Hydroxyzine Hcl 25 mg tablet Active 25 mg PO TWICE A DAY as needed April 21, 2023 1:00am Start: 04-13-2022 take 1-2 tablets by mouth once daily at bedtime as needed hydrOXYzine HCl 25 MG tablet TAKE 1-2 TABLET (25-50 MG) BY MOUTH DAILY AT BEDTIME NEEDED 0 04/13/2022 Active methylPREDNISolone (3 sources) Corticosteroid Start: 04-29-2022 methylPREDNIsolone 4 MG Tab Therapy Pack tablet TAKE 6 TABLETS ON DAY 1 DIRECTED ON PACKAGE AND DECREASE BY 1 TAB EACH DAY FOR A TOTAL OF 6 DAYS 0 04/29/2022 Active 24 hr metoprolol succinate 25 mg extended release oral tablet (7 sources) beta-Adrenergic Madi Start: 04-15-2022 take 0.5 tablet by mouth once daily Metoprolol succinate 25 MG tablet XL Take 0.5 tablets by mouth daily. 0 04/15/2022 Active Start: 04-15-2022 take 1 tablet by lenny th once daily Metoprolol Succinate ER 25 MG Oral Tablet Extended Release 24 Hour Take 1 tablet daily Quantity: 30 Refills: 3 Ordered: 15-Apr-2022 Bushra Lucio MD Start : 15-Apr-2022 Active Norethin Eber-Eth Estrad-FE ( PO) (3 sources) Norethin Eber-Eth Estrad-FE ( PO) Take by mouth daily. 0 Active norethindrone 0.35 mg oral tablet (2 sources) Start: take 1 tablet by mouth once daily Norethindrone (Contraceptive) 0.35 mg tablet Active 0.35 mg PO daily 84 May 06, 2024 12:00am Peg 3350-Sod Sulf,Msle-Tsh-Uvi (Suflave) 178.7-7.3-0.5 gram recon soln (1 source) Start: Peg 3350-Sod Sulf,Ehtq-Hch-Kre (Suflave) 178.7-7.3-0.5 gram recon soln Active 240 mL PO .COMPLEX 2 May 30, 2024 12:00am 240 mL orally; for bowl prep colonoscopy polyethylene glycol 3350 16994 mg powder for oral solution (2 sources) Osmotic Laxative Start: 4 Polyethylene Glycol 3350 (Miralax) 17 gram/dose powder Active 17 g PO DAILY April 21, 2023 1:00am predniSONE 20 mg oral tablet (2 sources) Start: 3 End: 3 take 1 tablet by mouth once daily predniSONE 20 MG Oral Tablet Take 1 tablet daily Quantity: 5 Refills: 0 Ordered: 29-Apr-2022 Bushra Lucio MD Start : 29-Apr-2022 End : 04-May-2022 Active vitamin b12 2.5 mg sublingual tablet (3 sources) Vitamin B12 Start: 4 take 1 tablet under the tongue once daily Cyanocobalamin (Vitamin B-12) (Vitamin B-12) 2,500 mcg tablet, sublingual Active 2500 [address] DAILY April 21, 2023 1:00am Start: 01-03-2023 take 1 tablet under the tongue once daily cyanocobalamin, vitamin B-12, 2,500 mcg tablet, sublingual SL tablet PLACE TABLET UNDER THE TONGUE EACH DAY 0 01/03/2023 Active Completed/Discontinued Medications Medication Drug Class(es) Dates Sig (Normalized) Sig (Original) amoxicillin 875 mg oral tablet (2 sources) Penicillin-class Antibacterial Start: 03-11-2021 take 1 tablet by mouth once daily Amoxicillin 875 MG Oral Tablet TAKE 1 TABLET EVERY 12 HOURS DAILY. Quantity: 20 Refills: 0 Ordered: 11-Mar-2021 Bushra Lucio MD Start : 11-Mar-2021 Active baclofen 10 mg oral tablet (6 sources) gamma-Aminobutyric Acid-ergic Agonist Start: 06-03-2021 take 1 tablet by mouth three times daily as needed for pain Baclofen 10 MG Oral Tablet TAKE 1 TABLET BY MOUTH THREE TIMES DAILY NEEDED FOR PAIN Quantity: 30 Refills: 1 Ordered: 03-Jun-2021 Bushra Lucio MD Start : 03-Jun-2021 Active Desog-E.Estradiol/ E.Estradiol (2 sources) Progestin, Estrogen Start: 06-26-2023 End: 11-08-2023 take 0.15 tablet by mouth once daily Desog-E.Estradiol/ E.Estradiol (Kariva ()) 0.15-0.02 mgx21 /0.01 mg x 5 tablet Discontinued 1 {tbl} PO daily June 26, 2023 12:00am November 08, 2023 3:55pm Norethindrone-E.Es tradiol-Iron (20 sources) Estrogen Start: 11-08-2023 End: 05-06-2024 Norethindrone-E.Es tradiol-Iron (03/18 ()) 1 mg-20 mcg (21)/75 mg (7) tablet Discontinued 1 {tbl} PO DAILY November 08, 2023 4:06pm May 06, 2024 12:04pm Start: 05-10-2023 End: 06-26-2023 Norethindrone-E.Estradiol-Ir on (03/18 ()) 1 mg-20 mcg (21)/75 mg (7) tablet Discontinued 1 {tbl} PO DAILY May 10, 2023 12:00am June 26, 2023 3:02pm Start: 06-21-2022 End: 04-21-2023 take 1 tablet by mouth once daily Norethindrone-E.Estradiol-Iron ( ()) 1.5 mg-30 mcg (21)/75 mg (7) tablet Discontinued 1 {tbl} PO DAILY June 21, 2022 2:55pm April 21, 2023 3:37pm Start: 06-21-2022 take 1 tablet by [facility] once daily Norethindrone-E.Estradiol-Iron ( ()) 1.5 mg-30 mcg (21)/75 mg (7) tablet Active 1 TABLET PO DAILY June 21, 2022 2:55pm Start: 05-20-2021 End: 06-16-2021 take 1 tablet by mouth once daily Norethindrone-E.Estradiol-Iron ( Fe .07/26 ()) 1.5 mg-30 mcg (21)/75 mg (7) tablet Discontinued 1 {tbl} PO DAILY May 20, 2021 9:28am June 16, 2021 3:07pm Start: 05-20-2021 End: 06-16-2021 take 1 tablet by mouth once daily Norethindrone-E.Estradiol-Iron (Julyl Fe 1.5/30 ()) 1.5 mg-30 mcg (21)/75 mg (7) tablet Discontinued 1 TABLET PO DAILY May 20, 2021 8:28am June 16, 2021 2:07pm Start: 05-20-2021 End: 06-16-2021 take 1 tablet by mouth once daily Norethindrone-E.Estradiol-Iron (Julyl Fe 1./30 ()) 1.5 mg-30 mcg (21)/75 mg (7) tablet Discontinued 1 TABLET PO DAILY May 20, 2021 9:28am June 16, 2021 3:07pm Start: 04-13-2020 End: 05-20-2021 take 1 tablet by mouth once daily Norethindrone-E.Estradiol-Iron (Julyl Fe 1./30 ()) 1.5 mg-30 mcg (21)/75 mg (7) tablet Discontinued 1 {tbl} PO DAILY April 13, 2020 12:48pm May 20, 2021 9:28am Start: 04-13-2020 End: 05-20-2021 take 1 tablet by mouth once daily Norethindrone-E.Estradiol-Iron (Julyl Fe 1./30 ()) 1.5 mg-30 mcg (21)/75 mg (7) tablet Discontinued 1 TABLET PO DAILY April 13, 2020 11:48am May 20, 2021 8:28am Start: 04-13-2020 End: 05-20-2021 take 1 tablet by mouth once daily Norethindrone-E.Estradiol-Iron (Julyl Fe 1.5/30 ()) 1.5 mg-30 mcg (21)/75 mg (7) tablet Discontinued 1 TABLET PO DAILY April 13, 2020 12:48pm May 20, 2021 9:28am Start: 03-30-2020 End: 04-13-2020 take 1 tablet by mouth once daily Norethindrone-E.Estradiol-Iron (Julyl Fe 1./30 (28)) 1.5 mg-30 mcg (21)/75 mg (7) tablet Discontinued 1 {tbl} PO DAILY 84 March 30, 2020 3:57pm April 13, 2020 12:48pm Start: 03-30-2020 End: 04-13-2020 take 1 tablet by mouth once daily Norethindrone-E.Estradiol-Iron (Julyl Fe 1./30 (28)) 1.5 mg-30 mcg (21)/75 mg (7) tablet Discontinued 1 TABLET PO DAILY 84 March 30, 2020 2:57pm April 13, 2020 11:48am Start: 03-30-2020 End: 04-13-2020 take 1 tablet by mouth once daily Norethindrone-E.Estradiol-Iron (Julyl Fe 1./30 (28)) 1.5 mg-30 mcg (21)/75 mg (7) tablet Discontinued 1 TABLET PO DAILY March 30, 2020 3:57pm April 13, 2020 12:48pm Start: 03-30-2020 End: 03-30-2020 take 1 tablet by mouth once daily Norethindrone-E.Estradiol-Iron (Julyl Fe 1.30 (28)) 1.5 mg-30 mcg (21)/75 mg (7) tablet Discontinued 1 TABLET PO DAILY March 30, 2020 3:50pm March 30, 2020 3:58pm Start: 03-30-2020 End: 03-30-2020 take 1 tablet by mouth once daily Norethindrone-E.Estradiol-Iron (Julyl Fe 1.30 ()) 1.5 mg-30 mcg (21)/75 mg (7) tablet Discontinued 1 {tbl} PO DAILY 84 March 30, 2020 1:00am March 30, 2020 3:58pm Start: 03-30-2020 End: 03-30-2020 take 1 tablet by mouth once daily Norethindrone-E.Estradiol-Iron (Julyl Fe 1./30 ()) 1.5 mg-30 mcg (21)/75 mg (7) tablet Discontinued 1 TABLET PO DAILY March 30, 2020 1:00am March 30, 2020 3:58pm Start: 03-30-2020 End: 03-30-2020 take 1 tablet by mouth once daily Norethindrone-E.Estradiol-Iron ( Fe 1.5 (28)) 1.5 mg-30 mcg (21)/75 mg (7) tablet Discontinued 1 TABLET PO DAILY 84 March 30, 2020 12:00am March 30, 2020 2:58pm Start: 09-12-2016 take 1 tablet by lenny th once daily norethindrone-e.estradioL-iron (Microges tin FE 1.5/30) 1.5 mg-30 mcg (21)/75 mg (7) tablet Take 1 tablet by mouth once daily. 0 09/12/2016 Active Norethindrone Ac-Eth Estradiol (2 sources) Estrogen Start: 04-21-2023 End: 05-10-2023 Norethindrone Ac-Eth Estradiol (03/18 ()) 1-20 mg-mcg tablet Discontinued 1 {tbl} PO DAILY 63 April 21, 2023 1:00am May 10, 2023 2:03pm FLUoxetine 10 mg oral tablet (20 sources) Serotonin Reuptake Inhibitor Start: 04-26-2022 End: 05-13-2022 take 1 tablet by mouth once daily fluoxetine 10 MG tablet TAKE 1 TABLET (10 MG) BY MOUTH DAILY. 0 04/26/2022 05/13/2022 Discontinued (Therapy completed) Start: 07-23-2020 End: 06-21-2022 take 1 capsule by mouth once daily Fluoxetine (Prozac) 10 mg capsule Discontinued 10 mg PO DAILY June 16, 2021 12:00am June 21, 2022 2:46pm Start: 03-30-2020 End: 04-16-2020 Fluoxetine (Prozac) 10 mg ca psule Discontinued 10 mg PO .COMPLEX March 30, 2020 3:56pm April 16, 2020 12:46pm 10 mg PO 10 days each month cyclic; Start: 03-30-2020 End: 03-30-2020 take 1 capsule by mouth once daily Fluoxetine (Prozac) 10 mg capsule Discontinued 10 mg PO DAILY March 30, 2020 1:00am March 30, 2020 3:58pm iohexol (OMNIPAQUE) 350 MG/ML injection 75 mL (1 source) Start: 06-21-2022 End: 06-21-2022 iohexol (OMNIPAQUE) 350 MG/ML injection 75 mL 03/18 1-20 MG-MCG Oral Tablet (6 sources) Start: 07-23-2020 take 1 tablet by mouth once daily 03/18 1-20 MG-MCG Oral Tablet TAKE 1 TABLET DAILY DIRECTED. Quantity: 0 Refills: 0 Ordered: 23-Jul-2020 DO Start : 23-Jul-2020 Active 1.5/30 1.5-30 MG-MCG Oral Tablet (17 sources) Start: 04-13-2020 1.5/3 0 1.5-30 MG-MCG Oral Tablet Quantity: 0 Refills: 0 Ordered: 15-Apr-2022 DO Start : 13-Apr-2020 Active Start: 04-13-2020 FE 1.5/3 0 1.5-30 MG-MCG Oral Tablet Quantity: 84 Refills: 0 Ordered: 12-Feb-2021 DO Start : 13-Apr-2020 Active methylPREDNISolone 4 MG Oral Tablet Therapy Pack (2 sources) Start: 04-29-2022 take 3 tablets by mouth once methylPREDNISolone 4 MG Oral Tablet Therapy Pack Take as directed per package. Quantity: 1 Refills: 0 Ordered: 29-Apr-2022 Bushra Lucio MD Start : 29-Apr-2022 Active 250 ml sodium chloride 9 mg/ml injection (1 source) Start: 06-21-2022 End: 06-21-2022 Sodium chloride 0.9% IV solution 75 mL SUMAtriptan 50 mg oral tablet (13 sources) Serotonin-1b and Serotonin-1d Receptor Agonist Start: 03-30-2021 take 1 tablet by mouth every two hours SUMAtriptan Succinate 50 MG Oral Tablet TAKE 1 TABLET FOR MIGRAINE RELIEF. MAY REPEAT EVERY 2 HOURS. MAX 200MG/DAY. Quantity: 10 Refills: 2 Ordered: 30-Mar-2021 Bushra Lucio MD Start : 30-Mar-2021 Active topiramate 25 mg oral tablet (15 sources) Start: 10-21-2021 Topiramate 25 MG Oral Tablet 25 mg po q am, 50 mg po qpm for 1 week then 25 mg po bid for 1 week then 25 mg po qhs for 1 week then stop Quantity: 30 Refills: 0 Ordered: 21-Oct-2021 Bushra Lucio MD Start : 21-Oct-2021 Active Start: 06-16-2021 End: 06-21-2022 take 1 tablet by mouth once daily Topiramate (Topamax) 50 mg tablet Discontinued 50 mg PO DAILY June 16, 2021 12:00am June 21, 2022 2:46pm Start: 06-03-2021 take 1 tablet by lenny th twice daily Topiramate 50 MG Oral Tablet take 1 tablet by mouth twice a day Quantity: 60 Refills: 1 Ordered: 14-Oct-2021 Bushra Lucio MD Start : 03-Jun-2021 Active Start: 06-03-2021 take 1 tablet by lenny th once daily at bedtime, then take 1 tablet by mouth twice daily, then take 1 tablet by mouth once daily in the morning, then take 2 tablets by mouth once in the evening, then take 2 tablets by mouth twice daily Topiramate 25 MG Oral Tablet 1 po qhs x 1 week then 1 po bid x 1 week then 1 po qam and 2 po q pm for 1 week then 2 po bid Quantity: 120 Refills: 0 Ordered: 03-Jun-2021 Bushra Lucio MD Start : 03-Jun-2021 Active valACYclovir 500 mg oral tablet (20 sources) Herpesvirus Nucleoside Analog DNA Polymerase Inhibitor, Herpes Simplex Virus Nucleoside Analog DNA Polymerase Inhibitor, Herpes Zoster Virus Nucleoside Analog DNA Polymerase Inhibitor Start: 06-16-2021 End: 06-26-2023 take 1 tablet by mouth once daily Valacyclovir (Valtrex) 500 mg tablet Discontinued 500 mg PO DAILY 90 June 21, 2022 2:54pm June 26, 2023 3:14pm Start: 07-23-2020 take 1 tablet by lenny th once daily Valtrex 1 GM Oral Tablet TAKE 1 TABLET DAILY. Quantity: 0 Refills: 0 Ordered: 23-Jul-2020 DO Start : 23-Jul-2020 Active Start: 03-30-2020 take 1 tablet by lenny th twice daily valACYclovir HCl - 500 MG Oral Tablet TAKE 1 TABLET TWICE DAILY. Quantity: 180 Refills: 0 Ordered: 10-Feb-2022 Bushra Lucio MD Start : 30-Mar-2020 Active Start: 03-30-2020 valACYclovir H Cl - 500 MG Oral Tablet Quantity: 90 Refills: 0 Ordered: 18-Feb-2021 DO Start : 30-Mar-2020 Active Start: 03-30-2020 End: 03-30-2020 take 1 tablet by mouth once daily Valacyclovir (Valtrex) 500 mg tablet Discontinued 500 mg PO DAILY March 30, 2020 1:00am March 30, 2020 3:58pm Problems Active Problems Problem Classification Problem Date Documented Da te Episodic/Chronic Abdominal pain (5 sources) Abdominal pain; Translations: [Unspecified abdominal pain] Onset: 05-24-2024 05-08-2024 Episodic Allergic reactions (2 sources) Allergic condition; Translations: [Allergy, unspecified, not elsewhere classified] Episodic Anxiety disorders (4 sources) Panic disorder [episodic paroxysmal anxiety]; Translations: [Acute stress disorder] Onset: 12-28-2022 Chronic Cardiac dysrhythmias (4 sources) Palpitations; Translations: [Palpitations] 04-01-2022 Episodic Conditions associated with dizziness or vertigo (5 sources) Vertigo; Translations: [Dizziness and giddiness] Episodic Headache; including migraine (20 sources) Migraine variants; Translations: [Variants of migraine, not elsewhere classified, without mention of intractable migraine without mention of status migrainosus] Onset: 06-21-2022 Chronic Comment on above: [place] [address] Headache; including migraine (17 sources) Headache; Translations: [Headache] Episodic Immunizations and screening for infectious disease (8 sources) Patient encounter status; Translations: [Other specified vaccination] 06-21-2022 Episodic Menstrual disorders (3 sources) Oligomenorrhea; Translations: [Oligomenorrhea, unspecified] Onset: 05-06-2024 06-26-2023 Chronic Miscellaneous mental health disorders (1 source) Mental disorder, not otherwise specified; Translations: [Mental disorder, not otherwise specified] Onset: 02-19-2024 Chronic Nutritional deficiencies (2 sources) Vitamin D deficiency; Translations: [Vitamin D deficiency, unspecified] Onset: 05-07-2013 12-27-2022 Chronic Other aftercare (2 sources) Other retirement (current) drug therapy; Translations: [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] Onset: 12-27-2022 Episodic Other connective tissue disease (3 sources) Transient neurological symptoms; Translations: [Other symptoms and signs involving the nervous system] Episodic Other female genital disorders (7 sources) Premenstrual tension syndrome; Translations: [Premenstrual tension syndrome] 03-30-2020 Chronic Comment on above: controlled with OCP Other female genital disorders (3 sources) Premenstrual tension syndrome; Translations: [Premenstrual tension syndromes] Onset: 05-06-2024 Chronic Other female genital disorders (5 sources) History of abnormal cervical Papanicolaou smear ; Translations: [Personal history of other diseases of the female genital tract] 06-16-2021 Episodic Comment on above: 09/2018 neg colp bx; 03/2020 neg pap and HPV; 05/2021 and 05/2022: neg pap and HPV. Due for pap/HPV 2025 Other female genital disorders (2 sources) Personal history of other diseases of the female genital tract; Translations: [Personal history of other genital system and obstetric disorders] Episodic Other gastrointestinal disorders (1 source) Chronic constipation; Translations: [Other constipation] 01-26-2023 Episodic Other gastrointestinal disorders (2 sources) Other constipation; Translations: [Other constipation] Onset: 01-26-2023 Episodic Other gastrointestinal disorders (4 sources) Constipation, unspecified; Translations: [Constipation, unspecified] Onset: 07-10-2023 Episodic Other gastrointestinal disorders (4 sources) Constipation; Translations: [Constipation, unspecified] 05-08-2024 Episodic Other nervous system disorders (15 sources) Paresthesia; Translations: [Disturbance of skin sensation] 03-26-2021 Episodic Other nervous system disorders (4 sources) H/O: migraine; Translations: [Personal history of other diseases of the nervous system and sense organs] 04-01-2022 Episodic Other nervous system disorders (2 sources) Dysarthria; Translations: [Dysarthria and anarthria] Episodic Other nutritional; endocrine; and metabolic disorders (12 sources) Overweight in adulthood with body mass index of 25 or more but less than 30; Translations: [Overweight] Episodic Other skin disorders (3 sources) Enlargement of neck; Translations: [Swelling, mass, or lump in head and neck] Episodic Other upper respiratory infections (4 sources) Acute sinusitis; Translations: [Acute sinusitis, unspecified] Episodic Residual codes; unclassified (16 sources) Body mass index 20-24 - normal; Translations: [Body Mass Index between 19-24, adult] Episodic Residual codes; unclassified (10 sources) Confusional state; Translations: [Unspecified psychosis] Episodic Residual codes; unclassified (4 sources) History of syncope; Translations: [Personal history of other specified conditions] 04-01-2022 Episodic Syncope (20 sources) Syncope; Translations: [Syncope and collapse] Episodic Thyroid disorders (20 sources) Thyroid nodule; Translations: [Nontoxic uninodular goiter] Chronic Viral infection (7 sources) Genital herpes simplex; 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, unspecified] Chronic Comment on above: controlled with valt arnoldo Past or Other Problems Problem Classification Problem Date Documented Da te Episodic/Chronic Blindness and vision defects (14 sources) Diplopia; Translations: [Diplopia] Onset: 06-21-2022 Episodic Other connective tissue disease (2 sources) Other symptoms and signs involving the nervous system; Translations: [Other symptoms and signs involving the nervous system] Onset: 06-21-2022 Episodic Other lower respiratory disease (20 sources) H/O: respiratory disease; Translations: [Personal history of other diseases of respiratory system] Resolved: 04-01-2021 Episodic Other nervous system disorders (2 sources) Dysarthria and anarthria; Translations: [Dysarthria and anarthria] Onset: 06-21-2022 Episodic Results Test Name Value Interpretation Reference Range Facility MR/PATKerryGRACIELAjayshree 08-08-2024 /PAT.[facility] Medical Records Department [address] [place] [id number] PAT - Anesthesia 08/08/24 1355 MR#: [id number] Acct: [id number] Name: BARRON JONES Rep #: [id number] : 1985 38 From: Yasir Saxena MD PCP: Dr. 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 When Was Last Pacemaker Check QUESTION #4 FULL TEXT: You/Your Family Experience fever (hyperthermia) with Anesthesia Last Oral Intake Last Oral intake: Last Oral Intake NPO since Meds taken in AM with sips of water? Meds patient instructed to take am of surgery PONV PONV - linen room houseperson: PONV - linen room houseperson Female Yes 08/08/24 11:45 HX of Motion Sickness No 08/08/24 11:45 HX of N/V After Surgery No 08/08/24 11:45 Non-Smoker Yes 08/08/24 11:45 Duration of Surgery greater No 08/08/24 11:45 than 60 minutes Number of Risk Factors 2 08/08/24 11:45 PONV Score Moderate Risk 08/08/24 11:45 Height Weight Height Weight: Anesthesia: Height Weight Height 5 ft 3 in 05/06/24 11:31 Respiratory Assessment Respiratory Assessment - linen room houseperson: Respiratory Tract Infection Hx - linen room houseperson Hx Respiratory Tract Infection No 08/08/24 11:45 STOP Sleep Apnea STOP Sleep Apnea - linen room houseperson: STOP Sleep Apnea - linen room houseperson Hx Hypertension No 08/08/24 11:45 Hx Sleep Apnea No 08/08/24 11:45 CPAP BIPAP Do you snore loudly (louder No 08/08/24 11:45 than talking or can be heard Do you often feel tired/ No 08/08/24 11:45 fatigued/ sleepy during daytime? Has anyone observed you stop No 08/08/24 11:45 breathing during sleep? STOP Results Negative 08/08/24 11:45 QUESTION #5 FULL TEXT : Do you snore loudly (louder than talking or can be heard through closed doors)? 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 Specify any problems Hx of Preganancy in last 3 No 08/08/24 11:45 Months Nurse Filling Out Transfusion VCHRISTIN 08/08/24 11:45 Questions: Date: 08/08/24 08/08/24 11:45 Time: 11:46 08/08/24 11:45 Patient unable to answer at this time (ie. confused, unrespo /Reproducti on History /Reproducti ve History - linen room houseperson: /Reproducti ve Hx- linen room houseperson Hx Now No 08/08/24 11:45 Gestational Age (in weeks): EDC: Hx Hx Para Hx Section SAB No 08/08/24 11:45 [facility] Medical History (Updated 08/08/24 @ 11:45 by Jenniffer Kat) Wears glasses Gastric reflux Non-smoker History of Holter monitoring Anxiety Migraines PMS (premenstrual syndrome) Home Medications ???Medication ???Instructions ???Recorded ???Last Taken ???Type cholecalciferol (vitamin D3) 50 50 mcg PO DAILY 04/21/23 Unknown H istory mcg (2,000 unit) tablet (Vitamin D3) cyanocobalamin (vitamin B-12) 2,500 mcg sublingual DAILY 4 Unknown History 2,500 mcg sublingual tablet (Vitamin B-12) ferrous sulfate 325 mg (65 mg 325 mg PO DAILY 04/21/23 08/05/24 History iron) tablet guanfacine 2 mg tablet,extended 2 mg PO DAILY 04/21/23 08/05/24 Hi story release 24 hr hydroxyzine HCl 25 mg tablet 25 mg PO BID PRN anxiety 04/21/23 Unknown History polyethylene glycol 3350 17 17 g PO DAILY PRN constipation Unknown History gram/dose oral powder (Miralax) amitriptyline 75 mg tablet 75 mg PO QHS 06/26/23 Unknown Hist ory (more content not included)... Normal [facility] Coffee Plantation Worker Office Visit Reporton 07-08-2024 Coffee Plantation Worker Office Visit Report [facility] [address], [address] [place] [address] OFFICE VISIT Date of Service: 07/08/24 MR#: [id number] Acct: [id number] Name: BARRON JONES Rep #: [id number] : 1985 Provider: Dr. Jessica Nguyen DO Age/Sex: 38/F [place] [facility] [place]: Signed Intake Vital Signs 01/03/24 15:32 05/06/24 11:31 07/08/24 14:20 07/08/24 14:20 Height 5 ft 3 in 5 ft 3 in 5 ft 3 in 5 ft 3 in Weight: 152 lb 6 oz BMI 26.9 BP 119/75 Intake Visit Reasons: Annual ([employer]) Nitro Worker Required: No Is patient in pain?: No Allergies No Known Allergies Allergy (Verified 07/08/24 14:19) Medications ???Medication ???Instructions ???Recorded ???Confirmed ???Type ascorbic acid (vitamin C) 500 mg 500 mg PO DAILY 04/21/23 07/08/24 History tablet cholecalciferol (vitamin D3) 50 50 mcg PO DAILY 04/21/23 07/08/24 History mcg (2,000 unit) tablet (Vitamin D3) cyanocobalamin (vitamin B-12) 2,500 mcg sublingual DAILY 4 07/08/24 History 2,500 mcg sublingual tablet (Vitamin B-12) ferrous sulfate 325 mg (65 mg 325 mg PO DAILY 04/21/23 07/08/24 History iron) tablet guanfacine 2 mg tablet,extended 2 mg PO DAILY 04/21/23 07/08/24 Hi story release 24 hr hydroxyzine HCl 25 mg tablet 25 mg PO BID PRN 04/21/23 07/08/24 History polyethylene glycol 3350 17 17 g PO DAILY 04/21/23 07/08/24 Hi story gram/dose oral powder (Miralax) amitriptyline 75 mg tablet 75 mg PO QHS 06/26/23 07/08/24 His tory valacyclovir 500 mg tablet 500 mg PO DAILY #90 tabs 06/26/23 07/08/24 Rx (Valtrex) Post menopausal: No Patient : No : No PFSH Medical History Anxiety Migraines PMS (premenstrual syndrome) Surgical History Kitzmiller teeth extracted History of tonsillectomy Family History Grandmother Diabetes Colon cancer Social History (Updated 07/08/24 @ 14:27 by Ivelisse Maria) number of children: 0 current occupational status: employed current occupation: [employer] sexually active: Yes Smoking Status: Never smoker second hand exposure: No alcohol intake: current alcohol intake frequency: holidays/special occasions only substance use type: does not use caffeine: Yes what type of physical activity do you participate in: walking and bicycling frequency: 3-4 times per week seatbelt use: always do you feel safe at home: Yes additional social history: Single History 0 Elective abortions Hx Para Spontaneous abortions Hx # Term Pregnancies Ectopic pregnancies Hx # Pregnancies Multiple births # of living children HPI Encounter for routine gynecological examination Details: BARRON JONES is a 38 year old G0 who presents for annual exam. Last PAP: 06/21/22, neg with neg hpv. in stable relationship History of abnormal PAP: no Last mammogram: n/a History of abnormal mammogram: n/a Colon cancer screening: colonoscopy scheduled for august 10 for chronic constipation. Other preventative health care screenings: up to date. wants a tubal ligation. states that her control makes her feel angry a lot. estrogen containing ocps were giving her headaches. has pmdd. states is 100% sure that she does not want children. Female Reproductive History Cycle Length: 21-35 Bleeding Duration: 5 Questions: metorrhagia: No, sexually active: Yes, dyspareunia: No and PCB: No Menopausal Symptoms: No hot flashes, No night sweats, No weight change, No mood changes, No difficulty concentrating, No sleep problems and No change in libido ROS Const Constitutional: Reports as per HPI; Denies fatigue, increased appetite, poor appetite, night sweats, weight gain or weight loss Cardio Card: Denies chest pain Resp Resp: Denies cough or dyspnea GI GI: Reports as per HPI; Denies abdominal pain, bloating, constipation, nausea or vomiting : Reports as per HPI and other; Denies difficulty voiding, dysuria, hematuria, hot flashes, nipple discharge, pelvic pain, prolapse symptoms, urinary frequency, urinary incontinence, urinary urgency, vaginal discharge, vaginal dryness, vaginal odor or vaginal pruritus Skin Skin/Breast: Denies changing lesions, breast mass, breast pain, breast skin changes or nipple discharge Psych Psych: Denies anxiety, change in libido, depression or difficulty concentrating Exam Const General: cooperative, healthy appearing, comfortable, no acute distress, well developed and well groomed HENAK Head: normal to inspection and normocephalic Ears: hearing grossly normal bilaterally and external ears normal Nose: external nose nor (more content not included)... Normal [facility] Abdomen Single Viewon 2024 Abdomen Single View [facility] Imaging Services [address] [place] [address] Abdomen Single View MR#: [id number] Acct: [id number] Name: BARRON JONES Rep #: [id number] : 1985 F 38 From: Pee Moore MD PCP: Dr. Bushra Lucio MD Status: REG CLI Study: Abdomen Single View Date of Exam: 05/23/24 Exam# [id number] Ordering Dr: Hanh Murrell EXAM: Abdominal single-view x-ray CLINICAL HISTORY: Sitz markers day 5 COMPARISON: 05/21/2024 TECHNIQUE: 2 supine AP views to include the entire abdomen and pelvis FINDINGS: Progression of Sitz markers. 1 marker remains at the proximal transverse colon. 8 markers are seen at the left colon. 3 markers within the sigmoid/rectum. Overall there is a vufgkbfr-rf-cnozb amount of colonic stool. No gaseous distention of bowel. Pelvic phleboliths noted. RAD/Abdomen Single View IMPRESSION: Progression of markers as above. Erlauaxq-ll-ypqcj amount of colonic stool. Reading Location: [facility] CC: Dr. Bushra Lucio MD; ALIS Rivas Modeling Agency Manager: Signed Normal [facility] Abdomen Single Viewon 2024 Abdomen Single View [facility] Imaging Services [address] [place] [address] Abdomen Single View MR#: [id number] Acct: [id number] Name: BARRON JONES Rep #: [id number] : 1985 F 38 From: Pee Moore MD PCP: Dr. Bushra Lucio MD Status: REG CLI Study: Abdomen Single View Date of Exam: 05/21/24 Exam# [id number] Ordering Dr: Hanh Murrell EXAM: Abdomen single view CLINICAL HISTORY: Sitz markers day 3 COMPARISON: None available TECHNIQUE: Single supine AP view of the abdomen FINDINGS: Approximately 8 Sitz markers are seen at the right colon. Approximately 12 markers are seen at the left colon. 1 marker is seen at the sigmoid. Gas and stool within the colon appears moderate at the ascending colon. No gaseous distention of bowel. Bilateral pelvic phleboliths. RAD/Abdomen Single View IMPRESSION: Sitz markers as above. Reading Location: [facility] CC: Dr. Bushra Lucio MD; ALIS Rivas Modeling Agency Manager: Signed Normal [facility] Gastroenterology Visit Repor ton 05-08-2024 Gastroenterology Visit Report [facility] Gastroenterology [address] [place] [address] OFFICE VISIT Date of Service: 05/08/24 MR#: [id number] Acct: [id number] Name: BARRON JONES Rep #: [id number] : 1985 Provider: ALIS Rivas Age/Sex: 38/F Location: [facility] Status: Signed Intake Vital Signs 01/20/24 08:53 05/06/24 11:31 Height 5 ft 3 in 5 ft 3 in Intake Visit Reasons: Constipation Chief Complaint: constipation Allergies No Known Allergies Allergy (Verified 05/06/24 11:31) Medications ???Medication ???Instructions ???Recorded ???Confirmed ???Type ascorbic acid (vitamin C) 500 mg 500 mg PO DAILY 04/21/23 05/08/24 History tablet cholecalciferol (vitamin D3) 50 50 mcg PO DAILY 04/21/23 05/08/24 History mcg (2,000 unit) tablet (Vitamin D3) cyanocobalamin (vitamin B-12) 2,500 mcg sublingual DAILY 4 05/08/24 History 2,500 mcg sublingual tablet (Vitamin B-12) ferrous sulfate 325 mg (65 mg 325 mg PO DAILY 04/21/23 05/08/24 History iron) tablet guanfacine 2 mg tablet,extended 2 mg PO DAILY 04/21/23 01/03/24 Hi story release 24 hr hydroxyzine HCl 25 mg tablet 25 mg PO BID PRN 04/21/23 05/08/24 History polyethylene glycol 3350 17 17 g PO DAILY 04/21/23 01/03/24 Hi story gram/dose oral powder (Miralax) amitriptyline 75 mg tablet 75 mg PO QHS 06/26/23 05/08/24 His tory valacyclovir 500 mg tablet 500 mg PO DAILY #90 tabs 06/26/23 05/08/24 Rx (Valtrex) norethindrone (contraceptive) 0.35 0.35 mg PO QDAY #84 tabs 5 05/08/24 Rx mg tablet Patient : No Have you fallen in the past year?: No Nurse's Note: OV 05.08.24 Pt here to establish care with [facility]. Pt reports n/v, gas, bloating, abdominal pain, and constipation. Pt reports a formed bm 1-2 times a week. Denies bloody stools. No prior history of EGD or colonoscopy. [facility] Medical History (Updated 05/08/24 @ 17:41 by ALIS Rivas) Anxiety Migraines PMS (premenstrual syndrome) Surgical History Kitzmiller teeth extracted History of tonsillectomy Family History Grandmother Diabetes Colon cancer Social History (Updated 05/08/24 @ 16:05 by Amie Gerardo LPN) number of children: 0 current occupational status: employed current occupation: [employer] sexually active: Yes Smoking Status: Never smoker second hand exposure: No alcohol intake: current alcohol intake frequency: holidays/special occasions only substance use type: does not use seatbelt use: always do you feel safe at home: Yes additional social history: Single HPI HPI Chief Complaint: constipation Details: BARRON JONES, is a 38 F who presents to the office today for establishment with [facility]. Pt has had issues with constipation over the past few years. It has progressively become worse and is now having just one bm per week. She was seen by Dr. Darling about year ago and was started on Linzess. She did not have any improvements after a few weeks and discontinued it. She takes miralax a few times per week. She has some abdominal/epigastric pain. She feels acid come up when she bends over. She does not take daily acid reducing medications. Pt endorses a hx of pelvic issues with vaginismus. She has difficulty with urination due to this and will have to apply pressure to her pelvis to urinate. She has never had a colonoscopy or EGD. Her grandmother had colon cancer in her late 70s. ROS Const Constitutional: Positive for fatigue and headache(s); No fever(s) or weight change ENT ENT: Positive for headache(s); No difficulty swallowing Gastro GI: Positive for abdominal pain, bloating, constipation, heartburn, excessive flatus and nausea/dyspepsia; No belching, change in bowel habits, change in stool character, coffee ground emesis, cramping, diarrhea, difficulty swallowing, feeling full early, incontinent of stools, Vomiting blood/hematemesis, Blood in stool, loose stools, Black,tarry stools, pain with swallowing, vomiting or other Musc Musculoskeletal: Positive for back pain and stiffness; No joint pain Skin Skin: No yellowing of the eye or itchy eyes Neuro Neurology: Positive for headache(s) Psych Psychiatric: Positive for anxiety and No depression Endo Endocrine: Positive for fatigue; No weight change Aller/Imm Allergy/Immunologic: No itchy eyes Gunner/Lymp Hematologic/Lymphati c: No easy bleeding or easy bruising Exam Const General: cooperative and comfortable Nutritional Appearance: average body habitus and well nourished [facility] Head: normal to inspection Ears: hearing grossly normal bilaterally Nose: external nose normal Face and sinus: normal facial exam Eyes General: appearance normal, both eyes and (more content not included)... Normal [facility] Laboratory - Chemistry and C hemistry - challengeOrdered By: Kaylin Fitzgerald on 05-06-2024 HCG ( test) Ql (U) Negative [facility] Coffee Plantation Worker Office Visit Reporton 05-06-2024 Coffee Plantation Worker Office Visit Report [facility] [address], [address] [place] [address] OFFICE VISIT Date of Service: 05/06/24 MR#: [id number] Acct: [id number] Name: BARRON JONES Rep #: [id number] : 1985 Provider: ROBBIE Stovall Age/Sex: 38/F Location: [facility] Status: Signed Intake Vital Signs 01/20/24 08:53 05/06/24 11:30 05/06/24 11:31 Height 5 ft 3 in 5 ft 3 in 5 ft 3 in Weight: 156 lb BMI 27.6 BP 99/67 Intake Visit Reasons: Migraines, on OCP Nitro Worker Required: No Is patient in pain?: No Allergies No Known Allergies Allergy (Verified 05/06/24 11:31) Is last menstrual period known: Yes Last Menstrual Period: 05/01/24 Post menopausal: No Patient : No : No [facility] Medical History (Updated 05/06/24 @ 12:13 by ROBBIE Livingston) Anxiety Migraines PMS (premenstrual syndrome) Surgical History Kitzmiller teeth extracted History of tonsillectomy Family History Grandmother Diabetes Colon cancer Social History number of children: 0 current occupational status: employed current occupation: [employer] sexually active: Yes Smoking Status: Never smoker alcohol intake: current alcohol intake frequency: holidays/special occasions only substance use type: does not use seatbelt use: always do you feel safe at home: Yes additional social history: Single HPI Migraines, on OCP Details: BARRON JONES is a 38 year old who presents for migraines with her menstrual cycles--she is not sure if this is related to her hormonal control. She will start with a migraine about 1 day or 2 before starting her period. She occasionally has an Aura that starts prior to her headache; she has taken aleve and excedrin. This takes the edge off but does not take the headache away. It was recommended she consider switching off an estrogen component from a pharmacist. She is taking the Junel compliant however she did not start her new pack yesterday as she ran out and intentionally did not start to see if it helps with her migraines. She continues to be sexually active. She has been having a menses each month; feels her flow is less and less but does still have a bleed even if it is just for one day. She has attempted multiple OCP's in the past. Some prevent her from having a menstrual cycle, some gives her feelings of rage, and most recently with Junel the migraines. Female Reproductive History Last Menstrual Period: 05/01/24 Cycle Length: 21-35 Bleeding Duration: 3 Questions: metorrhagia: No, sexually active: Yes, dyspareunia: No and PCB: No History 0 Elective abortions Hx Para Spontaneous abortions Hx # Term Pregnancies Ectopic pregnancies Hx # Pregnancies Multiple births # of living children ROS Const Constitutional: Reports system reviewed and no additional complaints, except as documented; Denies headache(s) (denies current-see HPI) Eyes Eyes: Denies blurry vision or diplopia ENT ENT: Denies dizziness Cardio Card: Denies chest pain at rest or palpitations Resp Resp: Denies cough or dyspnea GI GI: Denies constipation or cramping : Denies pelvic pain Musc Musc: Denies numbness Neuro Neuro: Denies confusion, dizziness or numbness Psych Psych: Denies anxiety, confusion, depression, homicidal ideation, irritability, panic attacks or suicidal ideation Exam Const General: cooperative and comfortable Resp Effort Inspection: normal respiratory effort, able to speak in complete sentences and symmetric chest movement GI Inspection: normal to inspection Skin General: no rashes or lesions noted Results POC Urine Office , Urine Negative Last Edit by Gus Radha on 05/06/24 11:58 Coding Level of Care Code Established Pt Off vis,est,level 3 Patient Type Established Diagnoses PMS (premenstrual syndrome) N94.3 Migraines G43.909 Assessment and Plan Assessment and Plan (1) PMS (premenstrual syndrome): Status: Acute Comment: controlled with OCP Plan: Controlled with OCP however having migraines with her menses now. She is interested in trying estrogen free contraceptive. Discussed the start of Martha. In office test negative. Discussed start of new OCP. Trial for the next 2-3 months until she can get in for annual visit. Med check at that time. She is interested in having tubes tied-not for sure yet--it was advised that she can think about this over the next 2-3 months while also trying a progesterone only OCP option. She is due for annual in May--we discussed having this completed with a physician should she choose to seek ster (more content not included)... Normal [facility] Alcohol, Blood (Medical)-Ser umon 01-20-2024 SERUM ETOH < 3.0 Normal [facility] Comment on above: Result Comment: The serum:whole blood ethanol ratio is approximately 1.14 and varies slightly with hematocrit. Medical Alcohol reference interval and critical value in non-tolerant individuals; 50 - 100 Impairment 100 Intoxication 100 - 250 Severe Poisoning 250 - 400 Deep/possible fatal coma Performed By: #### L 100.0100, L500.2500, L505.5000, L700.6800, L501.9100 ####[facility] [address] [place], [place], [id number] Basic Metabolic Profile (BMP )on 01-20-2024 BUN/CRE 12.8 RATIO Normal 10-20 [facility] Comment on above: Performed By: #### L 100.0100, L500.2500, L505.5000, L700.6800, L501.9100 ####[facility] [address] [place], [address] CA,Total 9.1 mg/dL Normal 8.5-10.1 [facility] Comment on above: Performed By: #### L 100.0100, L500.2500, L505.5000, L700.6800, L501.9100 ####[facility] [address] [place], [address] Chloride [Moles/Vol] 107 mmol/L Normal 98-107 [facility] Comment on above: Performed By: #### L 100.0100, L500.2500, L505.5000, L700.6800, L501.9100 ####[facility] [address] [place], [address] CO2 [Moles/Vol] 25.0 mmol/L Normal 21.0-32.0 [facility] Comment on above: Performed By: #### L 100.0100, L500.2500, L505.5000, L700.6800, L501.9100 ####[facility] [address] [place], [address] Creatinine [Mass/Vol] 0.86 mg/dL Normal 0.55-1.02 [facility] Comment on above: Result Comment: The validity of the calculated GFR GFRAA in patients over 70 years has not been determined. Clinical correlation is essential. Performed By: #### L 100.0100, L500.2500, L505.5000, L700.6800, L501.9100 ####[facility] [address] [place], [address] ECRCL 84.80 ml/min Normal [facility] Comment on above: Performed By: #### L 100.0100, L500.2500, L505.5000, L700.6800, L501.9100 ####[facility] [address] [place], [address] EST GFR - AA 96 mL/min Normal >60 [facility] Comment on above: Result Comment: Afri can [place] GFR Calc Performed By: #### L 100.0100, L500.2500, L505.5000, L700.6800, L501.9100 ####[facility] [address] [place], [address] GAP 6 Normal 5-15 [facility] Comment on above: Performed By: #### L 100.0100, L500.2500, L505.5000, L700.6800, L501.9100 ####[facility] [address] [place], [address] GFR/1.73 sq M.predicted among non-blacks MDRD (S/P/Bld) [Vol rate/Area] 79 mL/min/{1.73_m2} Normal >60 [facility] Comment on above: Result Comment: Non- GFR Calc Performed By: #### L 100.0100, L500.2500, L505.5000, L700.6800, L501.9100 ####[facility] [id number] [place], [address] Glucose [Mass/Vol] 102 mg/dL Normal 74-106 [facility] Comment on above: Result Comment: Fast ing Glucose result from 100 to 125 mg/dL suggests IMPAIRED HOMEOSTASIS per A.D.A. criteria. Performed By: #### L 100.0100, L500.2500, L505.5000, L700.6800, L501.9100 ####[facility] [id number] [place], [address] Potassium [Moles/Vol] 4.0 mmol/L Normal 3.5-5.1 [facility] Comment on above: Performed By: #### L 100.0100, L500.2500, L505.5000, L700.6800, L501.9100 ####[facility] [address] [place], [address] Sodium [Moles/Vol] 138 mmol/L Normal 136-145 [facility] Comment on above: Performed By: #### L 100.0100, L500.2500, L505.5000, L700.6800, L501.9100 ####[facility] [address] [place], [address] Urea nitrogen [Mass/Vol] 11 mg/dL Normal 7-18 [facility] Comment on above: Performed By: #### L 100.0100, L500.2500, L505.5000, L700.6800, L501.9100 ####[facility] [address] [place], [address] CBC W/Diff, Automatedon 11-2 -2023 Absolute Lymph 1.65 X10 3/uL Normal 0.83-4.51 [facility] Comment on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 [facility] CBC W Auto Differential pane l (Bld)on 12-27-2022 Basophils (Bld) [#/Vol] 0.02 x10*3/uL Normal 0.00-0.10 [facility] Comment on above: Order Comment: ADALGISA [address] [facility] [address] PHONE/FAX: [phone] Performed By: #### 5 7021-8 #### STACEY HOUSER ([id number]) [facility] ([facility]) [address] [place] [address] 069[address] Basophils/100 WBC (Bld) 0.3 % Normal 0.0-2.0 [facility] Comment on above: Order Comment: ADALGISA [address] [facility] [address] PHONE/FAX: [phone] Performed By: #### 5 7021-8 #### STACEY HOUSER ([id number]) [facility] ([facility]) [address] [place] [address] 52971 Eosinophils (Bld) [#/Vol] 0.13 x10*3/uL Normal 0.00-0.70 [facility] Comment on above: Order Comment: ADALGISA [address] [facility] [address] PHONE/FAX: [phone] Performed By: #### 5 7021-8 #### STACEY HOUSER ([id number]) [facility] ([facility]) [address] [place] [address] 16441 Eosinophils/100 WBC (Bld) 2.3 % Normal 0.0-6.0 [facility] Comment on above: Order Comment: FLOYD 419 - [place] [address] [facility] [address] PHONE/FAX: [phone] Performed By: #### 5 7021-8 #### STACEY HOUSER ([id number]) [facility] ([facility]) [address] [place] [address]881 Erythrocyte distribution width (RBC) [Ratio] 12.9 % Normal 11.5-14.5 [facility] Comment on above: Order Comment: FLOYD 419 - [place] [address] [facility] [address] PHONE/FAX: [phone] Performed By: #### 5 7021-8 #### STACEY HOUSER ([id number]) [facility] ([facility]) [address] [place] [address] 73060 Hematocrit (Bld) [Volume fraction] 37.0 % Normal 36.0-46.0 [facility] Comment on above: Order Comment: FLOYD 419 - [place] [address] [facility] [address] PHONE/FAX: [phone] Performed By: #### 5 7021-8 #### STACEY HOUSER ([id number]) [facility] ([facility]) [address] [place] [address] 40774 Hemoglobin (Bld) [Mass/Vol] 11.8 g/dL Low 12.0-16.0 [facility] Comment on above: Order Comment: FLOYD 419 - [place] [address] [facility] [address] PHONE/FAX: [phone] Performed By: #### 5 7021-8 #### STACEY HOUSER ([id number]) [facility] ([facility]) [address] [place] [address] Immature granulocytes (Bld) [#/Vol] 0.01 x10*3/uL Normal 0.00-0.70 [facility] Comment on above: Order Comment: FLOYD 419 - [place] [address] [facility] [address] PHONE/FAX: [phone] Performed By: #### 5 7021-8 #### STACEY HOUSER ([id number]) [facility] ([facility]) [address] [place] [address] 08663 Immature granulocytes/100 WBC (Bld) 0.2 % Normal 0.0-0.9 [facility] Comment on above: Order Comment: FLOYD - [place] [address] [facility] [address] PHONE/FAX: [phone] Result Comment: Catia ture Granulocyte Count (IG) includes promyelocytes, myelocytes and metamyelocytes but does not include bands. Percent differential counts (%) should be interpreted in the context of the absolute cell counts (cells/UL). Performed By: #### 5 7021-8 #### STACEY HOUSER ([id number]) [facility] ([facility]) [address] [place] [address] 47962 Lymphocytes (Bld) [#/Vol] 1.57 x10*3/uL Normal 1.20-4.80 [facility] Comment on above: Order Comment: FLOYD [address] [facility] [address] PHONE/FAX: [phone] Performed By: #### 5 7021-8 #### STACEY HOUSER ([id number]) [facility] ([facility]) [address] [place] [address] 44471 Lymphocytes/100 WBC (Bld) 27.4 % Normal 13.0-44.0 [facility] Comment on above: Order Comment: FLOYD [address] [facility] [address] PHONE/FAX: [phone] Performed By: #### 5 7021-8 #### STACEY HOUSER ([id number]) [facility] ([facility]) [address] [place] [address] 57445 MCH (RBC) [Entitic mass] 30.5 pg Normal 26.0-34.0 [facility] Comment on above: Order Comment: ADALGISA - [address] [facility] [address] PHONE/FAX: [phone] Performed By: #### 5 7021-8 #### STACEY HOUSER ([id number]) [facility] ([facility]) [address] [place] [address] 36503 MCHC (RBC) [Mass/Vol] 31.9 g/dL Low 32.0-36.0 [facility] Comment on above: Order Comment: FLOYD - [place] [address] [facility] [address] PHONE/FAX: [phone] Performed By: #### 5 7021-8 #### STACEY HOUSER ([id number]) [facility] ([facility]) [address] [place] [address] 65470 MCV (RBC) [Entitic vol] 96 fL Normal 80-100 [facility] Comment on above: Order Comment: FLOYD - [place] [facility] [address] PHONE/FAX: [phone] Performed By: #### 5 7021-8 #### STACEY HOUSER ([id number]) [facility] ([facility]) [address] [place] [address] 82826 Monocytes (Bld) [#/Vol] 0.31 x10*3/uL Normal 0.10-1.00 [facility] Comment on above: Order Comment: FLOYD - [place] [facility] [address] PHONE/FAX: [phone] Performed By: #### 5 7021-8 #### STACEY HOUSER ([id number]) [facility] ([facility]) [address] [place] [address] 17247 Monocytes/100 WBC (Bld) 5.4 % Normal 2.0-10.0 [facility] Comment on above: Order Comment: FLOYD [place] [facility] [address] PHONE/FAX: [phone] Performed By: #### 5 7021-8 #### STACEY HOUSER ([id number]) [facility] ([facility]) [address] [place] [address] 72051 Neutrophils (Bld) [#/Vol] 3.70 x10*3/uL Normal 1.20-7.70 [facility] Comment on above: Order Comment: FLOYD [address] [facility] [address] PHONE/FAX: [phone] Result Comment: Perc ent differential counts (%) should be interpreted in the context of the absolute cell counts (cells/uL). Performed By: #### 5 7021-8 #### STACEY HOUSER ([id number]) [facility] ([facility]) [address] [place] [address] 23515 Neutrophils/100 WBC (Bld) 64.4 % Normal 40.0-80.0 [facility] Comment on above: Order Comment: FLOYD [address] [facility] [address] PHONE/FAX: [phone] Performed By: #### 5 7021-8 #### STACEY HOUSER ([id number]) [facility] ([facility]) [address] [place] [address] 74695 Nucleated RBC/100 WBC (Bld) [Ratio] 0.0 /100 WBCs Normal 0.0-0.0 [facility] Comment on above: Order Comment: FLOYD [address] [facility] [address] PHONE/FAX: [phone] Performed By: #### 5 7021-8 #### STACEY HOUSER ([id number]) [facility] ([facility]) [address] [place] [address] 40447 Platelet mean volume (Bld) [Entitic vol] 8.8 fL Normal 7.5-11.5 [facility] Comment on above: Order Comment: ADALGISA [address] [facility] [address] PHONE/FAX: [phone] Performed By: #### 5 7021-8 #### STACEY HOUSER ([id number]) [facility] ([facility]) [address] [place] [address]74[address] Platelets (Bld) [#/Vol] 347 x10*3/uL Normal 150-450 [facility] Comment on above: Order Comment: ADALGISA [address] [facility] [address] PHONE/FAX: [phone] Performed By: #### 5 7021-8 #### STACEY HOUSER ([id number]) [facility] ([facility]) [facility] [place] [address] RBC (Bld) [#/Vol] 3.87 x10*6/uL Low 4.00-5.20 [facility] Comment on above: Order Comment: ADALGISA 419 - [place] [address] [place] [address] PHONE/FAX: [phone] Performed By: #### 5 7021-8 #### STACEY HOUSER ([id number]) [facility] ([facility]) [address] [place] [address] 00063 WBC (Bld) [#/Vol] 5.7 x10*3/uL Normal 4.4-11.3 [facility] Comment on above: Order Comment: ADALGISA - [place] [address] [place] [address] PHONE/FAX: [phone] Performed By: #### 5 7021-8 #### STACEY HOUSER ([id number]) [facility] ([facility]) [address] [place] [address] 23328 Calcidiolon 12-27-2022 25-hydroxyvitamin D3 [Mass/Vol] 29 ng/mL Low 30-100 [facility] Comment on above: Order Comment: ADALGISA - [place] [address] [place] [address] PHONE/FAX: [phone] Deficiency: < 20 ng/ml Insufficiency: 20-29 ng/ml Sufficiency: 30-100 ng/ml This assay accurately quantifies the sum of Vitamin D3, 25-Hydroxy and Vitamin D2,25-Hydroxy. Performed By: #### 1 989-3 #### STACEY HOUSER ([id number]) [facility] ([facility]) [address] [place] [address] 34673 Cobalaminson 12-27-2022 Cobalamin (Vitamin B12) [Mass/Vol] 207 pg/mL Low 211-911 [facility] Comment on above: Order Comment: ADALGISA 419 - [place] [address] [place] [address] PHONE/FAX: [phone] Performed By: #### 2 132-9 #### STACEY HOUSER ([id number]) [facility] ([facility]) [facility] [place] [address] Comprehensive metabolic 2000 panelon 12-27-2022 Albumin BCP dye [Mass/Vol] 4.3 g/dL Normal 3.4-5.0 [facility] Comment on above: Order Comment: ADALGISA 419 - [place] [address] [place] [address] PHONE/FAX: [phone] Performed By: #### 2 4323-8 #### STACEY HOUSER ([id number]) [facility] ([facility]) [address] [place] [address] 21754 ALP [Catalytic activity/Vol] 51 U/L Normal 33-110 [facility] Comment on above: Order Comment: ADALGISA 419 - [place] [address] [place] [address] PHONE/FAX: [phone] Performed By: #### 2 4323-8 #### STACEY HOUSER ([id number]) [facility] ([facility]) [address] [place], [place] [address] ALT With P-5'-P [Catalytic activity/Vol] 11 U/L Normal 7-45 [facility] Comment on above: Order Comment: FLOYD 419 - [place] [address] [place] [address] PHONE/FAX: [phone] Result Comment: Kristin ents treated with Sulfasalazine may generate falsely decreased results for ALT. Performed By: #### 2 4323-8 #### STACEY HOUSER ([id number]) [facility] ([facility]) [address] [place] [address] 88957 Anion gap [Moles/Vol] 11 mmol/L Normal 10-20 [facility] Comment on above: Order Comment: ADALGISA 419 - [place] [address] [place] [address] PHONE/FAX: [phone] Performed By: #### 2 4323-8 #### STACEY HOUSER ([id number]) [facility] ([facility]) [address] [place] [address] 28399 AST With P-5'-P [Catalytic activity/Vol] 15 U/L Normal 9-39 [facility] Comment on above: Order Comment: ADALGISA 419 - [place] [address] [place] [address] PHONE/FAX: [phone] Performed By: #### 2 4323-8 #### STACEY HOUSER ([id number]) [facility] ([facility]) [address] [place] [address] 53081 Bilirubin [Mass/Vol] 0.3 mg/dL Normal 0.0-1.2 [facility] Comment on above: Order Comment: FLOYD 419 - [place] [address] [place] [address] PHONE/FAX: [phone] Performed By: #### 2 4322-8 #### STACEY HOUSER ([id number]) [facility] ([facility]) [address] [place] [address] 83646 Calcium [Mass/Vol] 8.9 mg/dL Normal 8.6-10.3 [facility] Comment on above: Order Comment: ADALGISA 419 - [place] [address] [place] [address] PHONE/FAX: [phone] Performed By: #### 2 432-8 #### STACEY HOUSER ([id number]) [facility] ([facility]) [address] [place] [address] 26035 Chloride [Moles/Vol] 107 mmol/L Normal 98-107 [facility] Comment on above: Order Comment: ADALGISA 419 - [place] [address] [place] [address] PHONE/FAX: [phone] Performed By: #### 2 432-8 #### STACEY HOUSER ([id number]) [facility] ([facility]) [address] [place] [address] 57622 CO2 [Moles/Vol] 25 mmol/L Normal 21-32 [facility] Comment on above: Order Comment: ADALGISA 419 - [place] [address] [place] [address] PHONE/FAX: [phone] Performed By: #### 2 4323-8 #### STACEY HOUSER ([id number]) [facility] ([facility]) [address] [place] [address] 65219 Creatinine [Mass/Vol] 0.68 mg/dL Normal 0.50-1.05 [facility] Comment on above: Order Comment: ADALGISA 419 - [place] [address] [facility] [address] PHONE/FAX: [phone] Performed By: #### 2 4323-8 #### STACEY HOUSER ([id number]) [facility] ([facility]) [address] [place] [address] 59365 GFR/1.73 sq M.predicted MDRD (S/P/Bld) [Vol rate/Area] mL/min/{1.73_m2} Normal >60 [facility] Comment on above: Order Comment: ADALGISA 419 - [place] [address] [facility] [address] PHONE/FAX: [phone] Result Comment: Calc ulations of estimated GFR are performed using the 2020 CKD-EPI Study Refit equation without the race variable for the IDMS-Traceable creatinine methods. https://jasn.asnjournals.org/content/early//ASN.831 0137383 Performed By: #### 2 4323-8 #### STACEY HOUSER ([id number]) [facility] ([facility]) [address] [place] [address] 52182 Glucose [Mass/Vol] 82 mg/dL Normal 74-99 [facility] Comment on above: Order Comment: ADALGISA 419 - [place] [address] [facility] [address] PHONE/FAX: [phone] Performed By: #### 2 4323-8 #### STACEY HOUSER ([id number]) [facility] ([facility]) [address] [place] [address] 99080 Potassium [Moles/Vol] 4.2 mmol/L Normal 3.5-5.3 [facility] Comment on above: Order Comment: ADALGISA 419 - [place] [address] [facility] [address] PHONE/FAX: [phone] Performed By: #### 2 4323-8 #### STACEY HOUSER ([id number]) [facility] ([facility]) [address] [place] [address] 57946 Protein [Mass/Vol] 7.0 g/dL Normal 6.4-8.2 [facility] Comment on above: Order Comment: ADALGISA 419 - [place] [address] [place] [address] PHONE/FAX: [phone] Performed By: #### 2 4323-8 #### STACEY HOUSER ([id number]) [facility] ([facility]) [address] [place] [address] 79438 Sodium [Moles/Vol] 139 mmol/L Normal 136-145 [facility] Comment on above: Order Comment: ADALGISA 419 - [place] [address] [facility] [address] PHONE/FAX: [phone] Performed By: #### 2 4323-8 #### STACEY HOUSER ([id number]) [facility] ([facility]) [address] [place] [address] 00401 Urea nitrogen [Mass/Vol] 14 mg/dL Normal 6-23 [facility] Comment on above: Order Comment: ADALGISA 419 - [place] [address] [place] [address] PHONE/FAX: [phone] Performed By: #### 2 4323-8 #### STACEY HOUSER ([id number]) [facility] ([facility]) [address] [place] [address] 74968 Ferritinon 12-27-2022 Ferritin [Mass/Vol] 56 ng/mL Normal 8-150 [facility] Comment on above: Order Comment: ADALGISA 419 - [place] [address] [place] [address] PHONE/FAX: [phone] Performed By: #### 2 276-4 #### STACEY HOUSER ([id number]) [facility] ([facility]) [address] [place] [address] 39308 Folateon 12-27-2022 Folate [Mass/Vol] 21.8 ng/mL Normal >5.0 [facility] Comment on above: Order Comment: ADALGISA 419 - [place] [address] [place] [address] PHONE/FAX: [phone] Low <3.4 Borderline 3.4-5.0 Normal >5.0 Patients receiving more than 5 mg/day of biotin may have interference in test results. A sample should be taken no sooner than eight hours after previous dose. Contact the testing laboratory for additional information. Performed By: #### 2 284-8 #### STACEY HOUSER ([id number]) [facility] ([facility]) [address] [place] [address] 18556 Iron and Iron binding capaci ty panel 12-27-2022 Iron [Mass/Vol] 67 ug/dL Normal 35-150 [facility] Comment on above: Order Comment: FLOYD 419 - [place] [address] [facility] [address] PHONE/FAX: [phone] Performed By: #### 5 0190-8 #### STACEY HOUSER ([id number]) [facility] ([facility]) [address] [place] [address] 72984 Iron binding capacity [Mass/Vol] 365 ug/dL Normal 240-445 [facility] Comment on above: Order Comment: FLOYD 419 - [place] [address] [facility] [address] PHONE/FAX: [phone] Performed By: #### 5 0190-8 #### STACEY HOUSER ([id number]) [facility] ([facility]) [address] [place] [address] 60593 Iron binding capacity.unsaturated [Mass/Vol] 298 ug/dL Normal 110-370 [facility] Comment on above: Order Comment: FLOYD 419 - [place] [address] [place] [address] PHONE/FAX: [phone] Performed By: #### 5 0190-8 #### STACEY HOUSER ([id number]) [facility] ([facility]) [address] [place] [address] 34844 Iron saturation [Mass fraction] 18 % Low 25-45 [facility] Comment on above: Order Comment: FLOYD 419 - [place] [address] [place] [address] PHONE/FAX: [phone] Performed By: #### 5 0190-8 #### STACEY HOUSER ([id number]) [facility] ([facility]) [address] [place] [address] Lipid 1996 panelon 3 Cholesterol [Mass/Vol] 239 mg/dL High 0-199 Un [facility] Comment on above: Order Comment: ADALGISA ISAACOSTER [address] [facility] [address] PHONE/FAX: [phone] Result Comment: Age Desirable Borderline High High 0-19 Y 0 - 169 170 - 199 >/= 200 20-24 Y 0 - 189 190 - 224 >/= 225 >24 Y 0 - 199 200 - 239 >/= 240 All ranges are based on fasting samples. Specific therapeutic targets will vary based on patient-specific cardiac risk. Pediatric guidelines reference:Pediatrics 2011, 128(S5).Adult guidelines reference: NCEP ATPIII Guidelines,MAGDA 2001, 258:2486-97 Venipuncture immediately after or during the administration of Metamizole may lead to falsely low results. Testing should be performed immediately prior to Metamizole dosing. Performed By: #### 2 4331-1 #### STACEY HOUSER ([id number]) [facility] ([facility]) [facility] [place] [address] Cholesterol in HDL [Mass/Vol] 58.0 mg/dL Normal [facility] Comment on above: Order Comment: ADALGISA ISAACOSTER [address] [facility] [address] PHONE/FAX: [phone] Result Comment: Age Very Low Low Normal High 0-19 Y < 35 < 40 40-45 ---- 20-24 Y ---- < 40 >45 ---- >24 Y ---- < 40 40-60 >60 Performed By: #### 2 4331-1 #### STACEY HOUSER ([id number]) [facility] ([facility]) [facility] [place] [address] Cholesterol in LDL [Mass/Vol] 167 mg/dL High <=99 [facility] Comment on above: Order Comment: ADALGISA Jorge - [place] [address] [facility] [address] PHONE/FAX: [phone] Result Comment: Near Borderline AGE Desirable Optimal High High Very High 0-19 Y 0 - 109 --- 110-129 >/= 130 ---- 20-24 Y 0 - 119 --- 120-159 >/= 160 ---- >24 Y 0 - 99 100-129 130-159 160-189 >/=190 Performed By: #### 2 4331-1 #### STACEY HOUSER ([id number]) [facility] ([facility]) [address] [place] [address] Cholesterol in VLDL [Mass/Vol] 14 mg/dL Normal 0-40 [facility] Comment on above: Order Comment: ADALGISA 419 - NAHUM [address] [facility] [address] PHONE/FAX: [phone] Performed By: #### 2 4331-1 #### STACEY HOUSER ([id number]) [facility] ([facility]) [address] [place] [id number] CHOLESTEROL/HDL RATIO 4.1 Normal [facility] Comment on above: Order Comment: ADALGISA 419 - [place] [address] [facility] [address] PHONE/FAX: [phone] Result Comment: Ref Values Desirable < 3.4 High Risk > 5.0 Performed By: #### 2 4331-1 #### STACEY HOUSER ([id number]) [facility] ([facility]) [facility] [place] [address] NON HDL CHOLESTEROL 181 mg/dL High 0-149 [facility] Comment on above: Order Comment: ADALGISA 419 - NAHUM [address] [facility] [address] PHONE/FAX: [phone] Result Comment: Age Desirable Borderline High High Very High 0-19 Y 0 - 119 120 - 144 >/= 145 >/= 160 20-24 Y 0 - 149 150 - 189 >/= 190 ---- >24 Y 30 mg/dL above LDL Cholesterol goal Performed By: #### 2 4331-1 #### STACEY HOUSER ([id number]) [facility] ([facility]) [facility] [place] [address] Triglyceride [Mass/Vol] 70 mg/dL Normal 0-149 [facility] Comment on above: Order Comment: ADALGISA 419 - [place] [address] [place] [address] PHONE/FAX: [phone] Result Comment: Age Desirable Borderline High High Very High 0 D-90 D 19 - 174 ---- ---- ---- 91 D- 9 Y 0 - 74 75 - 99 >/= 100 ---- 10-19 Y 0 - 89 90 - 129 >/= 130 ---- 20-24 Y 0 - 114 115 - 149 >/= 150 ---- >24 Y 0 - 149 150 - 199 200- 499 >/= 500 Venipuncture immediately after or during the administration of Metamizole may lead to falsely low results. Testing should be performed immediately prior to Metamizole dosing. Performed By: #### 2 4331-1 #### STACEY HOUSER ([id number]) [facility] ([facility]) [address] [place] [address] Thyrotropinon 12-27-2022 TSH Qn 0.83 m[IU]/L Normal 0.44-3.98 [facility] Comment on above: Order Comment: ADALGISA [address] [place] [address] [facility] [address] PHONE/FAX: [phone] TSH testing is performed using different testing methodology at [facility] than at other [facility]. Direct result comparisons should only be made within the same method. Performed By: #### 3 016-3 #### STACEY HOUSER ([id number]) [facility] ([facility]) [address] [place] [address] Thyroxineon 12-27-2022 T4 [Mass/Vol] 8.5 ug/dL Normal 4.5-11.1 [facility] Comment on above: Order Comment: ADALGISA 644 - NAHUMKMDRD 8626 [facility] [address] PHONE/FAX: [phone] TSH testing is performed using different testing methodology at [facility] than at other [facility]. Direct result comparisons should only be made within the same method. Performed By: #### 3 016-3 #### STACEY HOUSER ([id number]) [facility] ([facility]) [address] [place] [address] Triiodothyronineon T3 [Mass/Vol] 155 ng/dL Normal 60-200 [facility] Comment on above: Order Comment: ADALGISA [address] [place], [place] [address]XMCFL [address] [facility] [address] PHONE/FAX: [phone] Performed By: #### 3 053-6 #### MANDY Sheldon ([id number]) [facility] ([facility]) [id number] [place] [address] [address] ANGIO BRAIN/NECKon 2022 CT ANGIO BRAIN/NECK CT ANGIO BRAIN/NECK HISTORY: Migraines several year history of tension headaches and visual disturbance. TECHNIQUE: CTA head and neck. Post-processed images {Maximum intensity Projection (MIP), Volume-rendered (VR), or Surface shaded display images (SSD)} were created, reviewed and archived. All CT scans at this facility use dose modulation, iterative reconstruction, and/or weight based dosing when appropriate to reduce radiation dose to as low as reasonably achievable. Contrast: IV administration of 75 cc Omnipaque 350. COMPARISON: None. RESULT: NECK: Soft tissues: Within normal limits. Spine: Alignment is normal. No significant degenerative changes are present. Lungs: The imaged lungs are clear. CT ARTERIOGRAM: EXTRACRANIAL CIRCULATION: Aortic arch and branch vessels: Conventional 3-vessel arch branch anatomy. No significant stenosis in the proximal brachiocephalic vessels. Carotid Stenosis: Right Common: No significant stenosis. Right Internal Carotid Plaque: No significant plaque formation. Right Internal Carotid Stenosis (% by NASCET Criteria): 0% Left Common: No significant stenosis. Left Internal Carotid Plaque: No significant plaque formation. Left Internal Carotid Stenosis (% by NASCET Criteria): 0% Cervical Vertebral Arteries: Patency: Bilateral Dominance: Codominant INTRACRANIAL CIRCULATION: Anterior circulation: Distal ICAs, ACAs and MCAs are normal in caliber. A1 segments are codominant. Posterior circulation: Distal vertebral arteries, basilar trunk and chartered wealth manager are normal in caliber. Proximal SCAs, AICAs and PICAs are patent. No vessel cut off, filling defect, significant focal narrowing or evidence of aneurysm. Opacified dural venous sinuses and major deep and superficial draining veins are patent. IMPRESSION: No large vessel occlusion or high-grade stenosis in the head or neck. Normal [facility] CT ANGIO BRAIN/NECKon 2022 IMPRESSION: No large vessel occlusion or high-grade stenosis in the head or neck. RADIOLOGY CT ANGIO BRAIN/NECK HISTORY: Migraines several year history of tension headaches and visual disturbance. TECHNIQUE: CTA head and neck. Post-processed images {Maximum intensity Projection (MIP), Volume-rendered (VR), or Surface shaded display images (SSD)} were created, reviewed and archived. All CT scans at this facility use dose modulation, iterative reconstruction, and/or weight based dosing when appropriate to reduce radiation dose to as low as reasonably achievable. Contrast: IV administration of 75 cc Omnipaque 350. COMPARISON: None. RESULT: NECK: Soft tissues: Within normal limits. Spine: Alignment is normal. No significant degenerative changes are present. Lungs: The imaged lungs are clear. CT ARTERIOGRAM: EXTRACRANIAL CIRCULATION: Aortic arch and branch vessels: Conventional 3-vessel arch branch anatomy. No significant stenosis in the proximal brachiocephalic vessels. Carotid Stenosis: Right Common: No significant stenosis. Right Internal Carotid Plaque: No significant plaque formation. Right Internal Carotid Stenosis (% by NASCET Criteria): 0% Left Common: No significant stenosis. Left Internal Carotid Plaque: No significant plaque formation. Left Internal Carotid Stenosis (% by NASCET Criteria): 0% Cervical Vertebral Arteries: Patency: Bilateral Dominance: Codominant INTRACRANIAL CIRCULATION: Anterior circulation: Distal ICAs, ACAs and MCAs are normal in caliber. A1 segments are codominant. Posterior circulation: Distal vertebral arteries, basilar trunk and chartered wealth manager are normal in caliber. Proximal SCAs, AICAs and PICAs are patent. No vessel cut off, filling defect, significant focal narrowing or evidence of aneurysm. Opacified dural venous sinuses and major deep and superficial draining veins are patent. RADIOLOGY Juan Underwood MD - 06/21/2022 CT ANGIO BRAIN/NECK HISTORY: Migraines several year history of tension headaches and visual disturbance. TECHNIQUE: CTA head and neck. Post-processed images {Maximum intensity Projection (MIP), Volume-rendered (VR), or Surface shaded display images (SSD)} were created, reviewed and archived. All CT scans at this facility use dose modulation, iterative reconstruction, and/or weight based dosing when appropriate to reduce radiation dose to as low as reasonably achievable. Contrast: IV administration of 75 cc Omnipaque 350. COMPARISON: None. RESULT: NECK: Soft tissues: Within normal limits. Spine: Alignment is normal. No significant degenerative changes are present. Lungs: The imaged lungs are clear. CT ARTERIOGRAM: EXTRACRANIAL CIRCULATION: Aortic arch and branch vessels: Conventional 3-vessel arch branch anatomy. No significant stenosis in the proximal brachiocephalic vessels. Carotid Stenosis: Right Common: No significant stenosis. Right Internal Carotid Plaque: No significant plaque formation. Right Internal Carotid Stenosis (% by NASCET Criteria): 0% Left Common: No significant stenosis. Left Internal Carotid Plaque: No significant plaque formation. Left Internal Carotid Stenosis (% by NASCET Criteria): 0% Cervical Vertebral Arteries: Patency: Bilateral Dominance: Codominant INTRACRANIAL CIRCULATION: Anterior circulation: Distal ICAs, ACAs and MCAs are normal in caliber. A1 segments are codominant. Posterior circulation: Distal vertebral arteries, basilar trunk and chartered wealth manager are normal in caliber. Proximal SCAs, AICAs and PICAs are patent. No vessel cut off, filling defect, significant focal narrowing or evidence of aneurysm. Opacified dural venous sinuses and major deep and superficial draining veins are patent. IMPRESSION IMPRESSION: No large vessel occlusion or high-grade stenosis in the head or neck. [facility] Radiology Study observation (narrative) [facility] CT ANGIO BRAIN/NECKOrdered B y: Juan Underwood on 06-21-2022 [facility] Work Phone: Chlamydia trachomatis rRNA d etection by probe and target amplification methodOrdered By: Cary Figueroa on 06-21-2022 C. trachomatis rRNA NERI+probe Ql (Unsp spec) Negative Negative [facility] HIV 1 and HIV-2 antibody ass ay with HIV-1 p24 antigen detectionOrdered By: Cary Figueroa on 06-21-2022 HIV 1+2 Ab+HIV1 p24 Ag IA Ql Non-Reactive Nonreactive [facility] Laboratory - Microbiology an d Antimicrobial susceptibilityOrdered By: Cary Figueroa on 06-21-2022 N. gonorrhoeae DNA NERI+probe Ql (Unsp spec) Negative Negative [facility] Comment on above: Performed at: =[facility] Monalisa cervantes [address] [id number] Director: Carmen Santana MD, Phone: [phone] No Panel Informationon 06-21 POC Trichomonas (Rapid) Negative [facility] No Panel InformationOrdered By: Cary Figueroa on 06-21-2022 Hepatitis C Antibody Non-Reactive Nonreactive [facility] Comment on above: Non Reactive: < 0.8 Equivocal: >/= 0.8 to < 1.0 Reactive: >/= 1.0The CDC recommends that a reactive/equivocal HCV antibody result be followed up by the HCV Nucleic Acid Amplificationtest (555696) Serum Treponema species anti body detectionOrdered By: Cary Figueroa on 06-21-2022 Treponema sp Ab Ql (S) Non-Reactive [facility] Office Visiton 04-29-2022 Follow-up visit Diagnoses/Problems Allergy (995.3) (T78.40XA) Migraine equivalent (346.20) (G43.109) Headache (784.0) (R51.9) Orders Allergy Start: EPINEPHrine 0.3 MG/0.3ML Injection Solution Auto-injector; INJECT 0.3ML INTRAMUSCULARLY DIRECTED Start: methylPREDNISolone 4 MG Oral Tablet Therapy Pack; Take as directed per package Headache, Migraine equivalent Start: predniSONE 20 MG Oral Tablet; Take 1 tablet daily Provider Impressions F/u in 1 month, sooner if needed. Chief Complaint 2 week c/u History of Present IllnessHere for f/u palpitations, near syncope, migraines. She states that she is still having headaches - everyday for about a month. She started the beta madi and did not feel good - she cut back to half a pill and feels like she is tolerating that ok now though and will give it some more time. She take excedrin or tylenol for her headaches and those do help temporarily, but she does not want to take them all the time. We discussed a trial of prednisone and she would like to try that. She also mentions that she has had issues with insect stings and has had to go to the ER. They suggested she keep a Rx for medrol in case she gets stung again. She states that they told her she didn't need an epipen but we will go ahead and give her one of those as well. SHe has not heard anything from neuro yet and we will check on that referral. Review of Systems Constitutional: Negative except as documented in history of present illness. Respiratory: Negative except as documented in history of present illness. Cardiovascular: Negative except as documented in history of present illness. Active Problems BMI 24.0-24.9, adult (V85.1) (Z68.24) Encounter for immunization (V03.89) (Z23) Headache (784.0) (R51.9) Migraine equivalent (346.20) (G43.109) Syncopal episodes (780.2) (R55) Thyroid nodule (241.0) (E04.1) Vertigo (780.4) (R42) Past Medical History History of acute sinusitis (V12.69) (Z87.09) Resolved Date: 01 Apr 2021 Surgical History History of Tonsillectomy Social History Caffeine use (V49.89) (Z78.9) Never a smoker Never smoker No advance directives (V49.89) (Z78.9) Occasional alcohol use Allergies No Known Allergies Recorded By: Marybeth Robertson; 07/23/2020 8:08:37 AM Current Meds Medication NameInstruction FLUoxetine HCl - 10 MG Oral CapsuleTAKE 1 CAPSULE Daily 1.5-30 MG-MCG Oral Tablet Metoprolol Succinate ER 25 MG Oral Tablet Extended Release 24 HourTake 1 tablet daily valACYclovir HCl - 500 MG Oral TabletTAKE 1 TABLET TWICE DAILY. Vitals Vital Signs Recorded: 29Apr2022 04:04PM Heart Rate84 Mozcexvk786, LUE, Sitting Xsdqcntpn21, LUE, Sitting Height5 ft 3 in Xmoglk519 lb BMI Jvgcfycdmz36.67 kg/m2 BSA Calculated1.6 Tobacco Useb) No Falls Screening (Age 18+)a) No falls within the last year O2 Gliwpanpyf33 Physical Exam General: Alert and oriented, No acute distress. Respiratory: Lungs are clear to auscultation, Respirations are non-labored, Breath sounds are equal. Cardiovascular: Normal rate, Regular rhythm, No murmur. Integumentary: Warm, Dry. Neurologic: Alert, Oriented, No focal deficits. Psychiatric: Cooperative, Appropriate mood AND affect. Signatures Electronically signed by : Bushra Lucio MD; Apr 30 2022 10:09AM EST (Author) Normal [facility] Tobacco Screening.on 023 Fall risk assessment a) No falls within the last year [facility] Phone: Tobacco use status [facility] b) No [facility] Work Phone: Office Visiton 04-15-2022 Follow-up visit Diagnoses/Problems Migraine equivalent (346.20) (G43.109) Headache (784.0) (R51.9) Orders Migraine equivalent Start: Metoprolol Succinate ER 25 MG Oral Tablet Extended Release 24 Hour; Take 1 tablet daily Neurology - General Referral Evaluation and Treatment Evaluate AND Treat Status: Hold For - Scheduling Requested for: [id number] Provider Impressions F/u in 2-4 weeks, sooner if needed. Chief Complaint ER f/u, [place] [facility] 04/01/22, Holter results History of Present IllnessHere for f/u recent ER visit at [place] for palpitations, near syncope. She states that she had a migraine episode where she passed out, felt lousy for about a week. [place] like her heart was racing - checked it at her desk and it was 120. She thought it may be due to her anxiety and she called her therapist and they told her to go to ER. She continues to struggle with headaches - the weather changes really affect her. She has tried topamax and had side effects with that, we discussed some other options and given her palpitations we will try metoprolol - discussed risk of low BP but will monitor closely. She is also interested in seeing a neurologist regarding her headaches/migraines. She did wear a Holter monitor and turned that in - we do not have the results of that yet, will check on that. Review of Systems Constitutional: Negative except as documented in history of present illness. Respiratory: Negative except as documented in history of present illness. Cardiovascular: Negative except as documented in history of present illness. Active Problems BMI 24.0-24.9, adult (V85.1) (Z68.24) Encounter for immunization (V03.89) (Z23) Headache (784.0) (R51.9) Migraine equivalent (346.20) (G43.109) Syncopal episodes (780.2) (R55) Thyroid nodule (241.0) (E04.1) Vertigo (780.4) (R42) Past Medical History History of acute sinusitis (V12.69) (Z87.09) Resolved Date: 01 Apr 2021 Surgical History History of Tonsillectomy Social History Caffeine use (V49.89) (Z78.9) Never a smoker Never smoker No advance directives (V49.89) (Z78.9) Occasional alcohol use Allergies No Known Allergies Recorded By: Marybeth Robertson; 07/23/2020 8:08:37 AM Current Meds Medication NameInstruction FLUoxetine HCl - 10 MG Oral CapsuleTAKE 1 CAPSULE Daily 1.5-30 MG-MCG Oral Tablet valACYclovir HCl - 500 MG Oral TabletTAKE 1 TABLET TWICE DAILY. Vitals Vital Signs Recorded: 15Apr2022 04:02PM Heart Rate72 Upurawow572, LUE, Sitting Brcmbhozk44, LUE, Sitting Height5 ft 3 in Qhobze757 lb 8 oz BMI Ndmvjqwbre90.41 kg/m2 BSA Calculated1.59 Tobacco Useb) No Falls Screening (Age 18+)a) No falls within the last year O2 Jvrfltsmko72 Physical Exam General: Alert and oriented, No acute distress. Respiratory: Lungs are clear to auscultation, Respirations are non-labored, Breath sounds are equal. Cardiovascular: Normal rate, Regular rhythm, No murmur. Integumentary: Warm, Dry. Neurologic: Alert, Oriented, No focal deficits. Psychiatric: Cooperative, Appropriate mood AND affect. Signatures Electronically signed by : Bushra Lucio MD; Apr 16 2022 12:00PM EST (Author) Normal [facility] Tobacco Screening.on 023 Fall risk assessment a) No falls within the last year [facility] 205 DO Work Phone: Tobacco use status [facility] b) No [facility] 205 DO Work Phone: Absolute lymphocyte countOrd ered By: Dr. Peralta on 04-01-2022 Lymphocytes Auto (Unsp spec) [#/Vol] 1.45 10*3/uL 0.83-4.51 [facility] Basophil percentageOrdered B y: Dr. Peralta on 04-01-2022 Basophils/100 WBC (Bld) 0.8 % 0-1 [facility] Chloride [Moles/Vol] 108 mmol/L 98-107 [facility] Eosinophils/100 WBC (Bld) 3.2 % 0-5 [facility] Glucose [Mass/Vol] 103 mg/dL 74-106 [facility] Comment on above: Fasting Glucose resu lt from 100 to 125 mg/dL suggests IMPAIRED HOMEOSTASIS per A.D.A. criteria. Neutrophils (Bld) [#/Vol] 4.5 10*3/uL 2.0-7.7 [facility] Neutrophils/100 WBC (Bld) 68.8 % 47-70 [facility] Potassium [Moles/Vol] 3.9 mmol/L 3.5-5.1 [facility] Sodium [Moles/Vol] 142 mmol/L 136-145 [facility] WBC (Bld) [#/Vol] 6.6 10*3/uL 4.4-11.0 [facility] Beta hCG serum qualOrdered B y: Dr. Peralta on 04-01-2022 Beta HCG ( test) Ql Negative [facility] Blood erythrocytes count (nu mber/volume)Ordered By: Dr. Peralta on 04-01-2022 RBC (Bld) [#/Vol] 3.90 10*6/uL 4.2-5.4 [facility] Blood hemoglobin measurement (mass/volume)Ordered By: Dr. Peralta on 04-01-2022 Hemoglobin (Bld) [Mass/Vol] 11.8 g/dL 12.0-15.0 [facility] Blood lymphocytes/100 leukoc ytesOrdered By: Dr. Peralta on 04-01-2022 Lymphocytes/100 WBC (Bld) 22.0 % 19-41 [facility] Blood monocytes/100 leukocyt esOrdered By: Dr. Peralta on 04-01-2022 Monocytes/100 WBC (Bld) 4.9 % 0-10 [facility] Blood platelet mean volumeOr dered By: Dr. Peralta on 04-01-2022 Platelet mean volume (Bld) [Entitic vol] 9.0 fL 6.2-12.0 [facility] Determination of erythrocyte mean corpuscular volume (MCV)Ordered By: Dr. Peralta on 04-01-2022 MCV (RBC) [Entitic vol] 94.6 fL 81-99 [facility] Hematocrit Auto (Bld) [Volum e fraction]Ordered By: Dr. Peralta on 04-01-2022 Hematocrit (Bld) [Volume fraction] 36.9 % 37-47 [facility] Laboratory - Chemistry and C hemistry - challengeOrdered By: Dr. Peralta on 04-01-2022 CO2 [Moles/Vol] 24.0 mmol/L 21.0-32.0 [facility] Magnesium [Mass/Vol] 2.4 mg/dL 1.6-2.6 [facility] Urea nitrogen/Creatinine [Mass ratio] 15.5 mg/mg 10-20 [facility] - Hematology and Cell countsOrdered By: Dr. Peralta on 04-01-2022 Erythrocyte distribution width (RBC) [Entitic vol] 43.8 fL 35.1-43.9 [facility] Erythrocyte distribution width (RBC) [Ratio] 12.6 % 11.6-14.6 [facility] Immature granulocytes/100 WBC (Bld) 0.300 % 0.0-0.9 [facility] Comment on above: IG% - Immature Granu locytes (promyelocytes, myelocytes and metamyelocytes) > 1% indicates that a LEFT SHIFT is Present. MCH (RBC) [Entitic mass] 30.3 pg 27.0-32.0 [facility] Nucleated RBC/100 WBC (Bld) [Ratio] 0 % 0-5 [facility] MCHC Auto (RBC) [Mass/Vol]Or dered By: Dr. Peralta on 04-01-2022 MCHC (RBC) [Mass/Vol] 32.0 g/dL 32-36 [facility] No Panel InformationOrdered By: Dr. Peralta on 04-01-2022 Estimated Creatinine Clearance Calc 84.07 ml/min [facility] Estimated GFR (MDRD) Amer 109 mL/min >60 [facility] Comment on above: GFR Calc Estimated GFR (MDRD) Non-Af Amer 90 mL/min >60 [facility] Comment on above: Non- GFR Calc Thyroid Stimulating Hormone (TSH) 0.85 uIU/mL 0.358-3.74 [facility] Platelets bldOrdered By: Dr. Peralta on 04-01-2022 Platelets (Bld) [#/Vol] 327 10*3/uL 150-450 [facility] Serum or plasma calcium jessica urement (mass/volume)Ordered By: Dr. Peralta on 04-01-2022 Calcium [Mass/Vol] 8.8 mg/dL 8.5-10.1 [facility] Serum or plasma creatinine m easurement (mass/volume)Ordered By: Dr. Peralta on 04-01-2022 Creatinine [Mass/Vol] 0.78 mg/dL 0.55-1.02 [facility] Comment on above: The validity of the calculated GFR & GFRAA in patients over 70 years has not been determined. Clinical correlation is essential. Serum or plasma urea nitroge n measurement (mass/volume)Ordered By: Dr. Peralta on 04-01-2022 Urea nitrogen [Mass/Vol] 12 mg/dL 7-18 [facility] Thin prep Papanicolaou smear with manual screeningOrdered By: Dr. Peralta on 04-01-2022 Thin prep Papanicolaou smear with manual screening 10 5-15 [facility] Office Visiton 02-10-2022 Follow-up visit Diagnoses/Problems Migraine equivalent (346.20) (G43.109) Vertigo (780.4) (R42) Orders Health Maintenance Renew: valACYclovir HCl - 500 MG Oral Tablet; TAKE 1 TABLET TWICE DAILY Provider Impressions Suspect that she has some vertigo related to recent URI, will continue to monitor and she may try some flonase nasal spray. F/u in 6 months, sooner if needed. Chief Complaint 3 mo f/u History of Present IllnessHere for f/u migraine. She states that she had cold symptoms last week and has been a little dizzy since then. Otherwise she is doing well. Review of Systems Constitutional: Negative except as documented in history of present illness. Respiratory: Negative except as documented in history of present illness. Cardiovascular: Negative except as documented in history of present illness. Active Problems BMI 24.0-24.9, adult (V85.1) (Z68.24) Encounter for immunization (V03.89) (Z23) Headache (784.0) (R51.9) Migraine equivalent (346.20) (G43.109) Syncopal episodes (780.2) (R55) Thyroid nodule (241.0) (E04.1) Past Medical History History of acute sinusitis (V12.69) (Z87.09) Resolved Date: 01 Apr 2021 Surgical History History of Tonsillectomy Social History Caffeine use (V49.89) (Z78.9) Never a smoker Never smoker No advance directives (V49.89) (Z78.9) Occasional alcohol use Allergies No Known Allergies Recorded By: Marybeth Robertson; 07/23/2020 8:08:37 AM Current Meds Medication NameInstruction valACYclovir HCl - 500 MG Oral TabletTAKE 1 TABLET TWICE DAILY. Vitals Vital Signs Recorded: [id number] 04:44PMRecorded: [id number] 04:17PM PHQ-2 #1. Over the last 2 weeks have you felt down, depressed or hopeless? (If yes, answer PHQ-9 below)No PHQ-2 #2. Over the last 2 weeks have you felt little interest or pleasure in doing things? (If yes, answer PHQ-9 below)No Heart Rate82 Nltkoipy190, LUE, Sitting Ryzrqqpcg48, LUE, Sitting Height5 ft 3 in Mvurmc211 lb 1 oz BMI Drrrtfigdd51.39 kg/m2 BSA Calculated1.62 Tobacco Useb) No Falls Screening (Age 18+)a) No falls within the last year O2 Fztkgirqnh98 Physical Exam General: Alert and oriented, No acute distress. HEENT: NCAT, PERRL, EOMI. TMs pearly Respiratory: Lungs are clear to auscultation, Respirations are non-labored, Breath sounds are equal. Cardiovascular: Normal rate, Regular rhythm, No murmur. Integumentary: Warm, Dry. Neurologic: Alert, Oriented, No focal deficits. Psychiatric: Cooperative, Appropriate mood AND affect. Signatures Electronically signed by : Bushra Lucio MD; Feb 11 2022 4:05PM EST (Author) Normal [facility] PHQ-2 VITALSon 02-10-2022 Adult depression screening assessment No [facility] Phone: Tobacco Screening.on 022 Fall risk assessment a) No falls within the last year [employer] Phone: Tobacco use status [facility] b) No M [facility] Phone: Office Visiton 11-18-2021 Follow-up visit Diagnoses/Problems Migraine equivalent (346.20) (G43.109) Provider Impressions Continue current medications. F/u in 2-3 months, sooner if needed. Chief Complaint 1 mo f/u History of Present IllnessHere for f/u migraine. She just weaned off the topamax - last dose a couple of days ago. She does feel a little better since she stopped. She states that she thinks she is doing fine at this time - we discussed potentially increasing the dose of the fluoxetine if she wants, but at this point she would like to continue as is. Review of Systems Constitutional: Negative except as documented in history of present illness. Respiratory: Negative except as documented in history of present illness. Cardiovascular: Negative except as documented in history of present illness. Active Problems BMI 24.0-24.9, adult (V85.1) (Z68.24) Headache (784.0) (R51.9) Migraine equivalent (346.20) (G43.109) Syncopal episodes (780.2) (R55) Thyroid nodule (241.0) (E04.1) Past Medical History History of acute sinusitis (V12.69) (Z87.09) Resolved Date: 01 Apr 2021 Surgical History History of Tonsillectomy Social History Caffeine use (V49.89) (Z78.9) Never a smoker Never smoker No advance directives (V49.89) (Z78.9) Occasional alcohol use Allergies No Known Allergies Recorded By: Marybeth Robertson; 07/23/2020 8:08:37 AM Current Meds Medication NameInstruction FLUoxetine HCl - 10 MG Oral CapsuleTAKE 1 CAPSULE Daily valACYclovir HCl - 500 MG Oral TabletTAKE 1 TABLET TWICE DAILY. Vitals Vital Signs Recorded: 18Nov2021 04:28PM Heart Rate55 Hkiqovoi933, LUE, Sitting Jdyswqvel21, LUE, Sitting Height5 ft 3 in Gtigiu288 lb 4 oz BMI Cnmgpippym18.54 kg/m2 BSA Calculated1.6 Tobacco Useb) No Falls Screening (Age 18+)a) No falls within the last year O2 Iypsfvpguo44 Physical Exam General: Alert and oriented, No acute distress. Neurologic: Alert, Oriented, No focal deficits. Psychiatric: Cooperative, Appropriate mood AND affect. Signatures Electronically signed by : Bushra Lucio MD; Nov 18 2021 4:50PM EST (Author) [facility] Tobacco Screening.on 022 Fall risk assessment a) No falls within the last year [facility] Phone: Tobacco use status [facility] b) No M [facility] Phone: Office Visiton 10-21-2021 Follow-up visit Diagnoses/Problems Migraine equivalent (346.20) (G43.109) Headache (784.0) (R51.9) Orders Headache, Migraine equivalent Start: Topiramate 25 MG Oral Tablet; 25 mg po q am, 50 mg po qpm for 1 week then 25 mg po bid for 1 week then 25 mg po qhs for 1 week then stop Health Maintenance Renew: valACYclovir HCl - 500 MG Oral Tablet; TAKE 1 TABLET TWICE DAILY Health Maintenance, Migraine equivalent Renew: FLUoxetine HCl - 10 MG Oral Capsule (PROzac); TAKE 1 CAPSULE Daily Provider Impressions F/u in 3-4 weeks, sooner if needed. Chief Complaint 3 mo f/u, discuss stopping topapmax, does not side effects, c/o numbness to hands/feet, increased fatigue, increased depression History of Present IllnessHere for f/u syncopal episodes/?migraine. She thinks she would like to stop the topamax. She has been having headaches still. Has not had any further episodes of confusion/passing out. She is having numbness and fatigue with it. She is having more fatigue with the topamax and we will work on weaning off. Review of Systems Constitutional: Negative except as documented in history of present illness. Respiratory: Negative except as documented in history of present illness. Cardiovascular: Negative except as documented in history of present illness. Active Problems BMI 24.0-24.9, adult (V85.1) (Z68.24) Headache (784.0) (R51.9) Migraine equivalent (346.20) (G43.109) Syncopal episodes (780.2) (R55) Thyroid nodule (241.0) (E04.1) Past Medical History History of acute sinusitis (V12.69) (Z87.09) Resolved Date: 01 Apr 2021 Surgical History History of Tonsillectomy Social History Caffeine use (V49.89) (Z78.9) Never a smoker Never smoker No advance directives (V49.89) (Z78.9) Occasional alcohol use Allergies No Known Allergies Recorded By: Marybeth Robertson; 07/23/2020 8:08:37 AM Current Meds Medication NameInstruction Baclofen 10 MG Oral TabletTAKE 1 TABLET BY MOUTH THREE TIMES DAILY NEEDED FOR PAIN FLUoxetine HCl - 10 MG Oral CapsuleTAKE 1 CAPSULE Daily Topiramate 50 MG Oral Tablettake 1 tablet by mouth twice a day valACYclovir HCl - 500 MG Oral Tablet Vitals Vital Signs Recorded: [id number] 04:22PM Heart Rate68 Aafhxqjt50, LUE, Sitting Thxnrqqxu50, LUE, Sitting Height5 ft 3 in Kgjxyg216 lb 8 oz BMI Mkwphktpin29.12 kg/m2 BSA Calculated1.61 Tobacco Useb) No Falls Screening (Age 18+)a) No falls within the last year O2 Zyetroaoqv47 Physical Exam General: Alert and oriented, No acute distress. Respiratory: Lungs are clear to auscultation, Respirations are non-labored, Breath sounds are equal. Cardiovascular: Normal rate, Regular rhythm, No murmur. Integumentary: Warm, Dry. Neurologic: Alert, Oriented, No focal deficits. Psychiatric: Cooperative, Appropriate mood AND affect. Signatures Electronically signed by : Bushra Lucio MD; Oct 23 2021 2:44PM EST (Author) [facility] Tobacco Screening.on 022 Fall risk assessment a) No falls within the last year [facility] Phone: Tobacco use status [facility] b) No M [facility] Phone: US THYROIDon 08-12-2021 US THYROID Patient Name: BARRON JONES STUDY: US THYROID; 08/12/2021 5:19 pm INDICATION: thyroid nodule E04.1: Thyroid nodule. COMPARISON: 07/28/2020 ACCESSION NUMBER(S): [id number] ORDERING CLINICIAN: BUSHRA LUCIO TECHNIQUE: Multiple ultrasonographic images of the thyroid gland were obtained. FINDINGS: RIGHT LOBE: The right lobe measures 5.3 x 1 x 1.3 cm and is homogeneous. No nodule is seen. LEFT LOBE: The left lobe measures 5.2 x 0.8 x 1.4 cm and is homogeneous. No solid thyroid nodule. A subcentimeter cyst is seen in the midportion posteriorly. ISTHMUS: The isthmus measures approximately 1.5 mm and is homogeneous in echotexture and without any identifiable nodules. IMPRESSION: Normal thyroid size. Previously seen nodule in the left lobe not visualized on this study Electronically signed by: EWA YEH MD [facility] Office Visiton 07-08-2021 Follow-up visit Diagnoses/Problems Migraine equivalent (346.20) (G43.109) Syncopal episodes (780.2) (R55) Provider Impressions F/u in 3-4 months, sooner if needed. Chief Complaint Pt presents for 1 mo f/o on headaches, medications, and labs. History of Present IllnessHere for f/u syncopal episodes/?migraine, She states that she struggled with the increasing dose a little bit, but feels like she is doing ok with it now. She states that she has not had any auras since she has been on the medication so it may be helping. She states that she did stop her OCPs about a month ago - she is aware of potential for defects with topamax and will be careful if she does become sexually active. Review of Systems Constitutional: Negative except as documented in history of present illness. Respiratory: Negative except as documented in history of present illness. Cardiovascular: Negative except as documented in history of present illness. Active Problems BMI 24.0-24.9, adult (V85.1) (Z68.24) Headache (784.0) (R51.9) Migraine equivalent (346.20) (G43.109) Syncopal episodes (780.2) (R55) Thyroid nodule (241.0) (E04.1) Past Medical History History of acute sinusitis (V12.69) (Z87.09) Resolved Date: 01 Apr 2021 Surgical History History of Tonsillectomy Social History Caffeine use (V49.89) (Z78.9) Never a smoker Never smoker No advance directives (V49.89) (Z78.9) Occasional alcohol use Allergies No Known Allergies Recorded By: Marybeth Robertson; 07/23/2020 8:08:37 AM Current Meds Medication NameInstruction Baclofen 10 MG Oral TabletTAKE 1 TABLET BY MOUTH THREE TIMES DAILY NEEDED FOR PAIN FLUoxetine HCl - 10 MG Oral CapsuleTAKE 1 CAPSULE Daily 1.5-30 MG-MCG Oral Tablet Topiramate 50 MG Oral TabletTAKE 1 TABLET Twice daily valACYclovir HCl - 500 MG Oral Tablet Vitals Vital Signs Recorded: 08Jul2021 04:21PM Heart Rate79 Zplsijfh78, LUE Pmhomthbi67, LUE Height5 ft 3 in Edpwzl831 lb 3 oz BMI Jrpnsfyrlb24.12 kg/m2 BSA Calculated1.64 Tobacco Useb) No Fall Screeninga) No falls within the last year O2 Rsyzlemudy89 Physical Exam General: Alert and oriented, No acute distress. Respiratory: Lungs are clear to auscultation, Respirations are non-labored, Breath sounds are equal. Cardiovascular: Normal rate, Regular rhythm, No murmur. Integumentary: Warm, Dry. Neurologic: Alert, Oriented, No focal deficits. Psychiatric: Cooperative, Appropriate mood AND affect. Signatures Electronically signed by : Bushra Lucio MD; Jul 09 2021 4:43PM EST (Author) [facility] Tobacco Screening.on 022 Fall risk assessment a) No falls within the last year [facility] Phone: Tobacco use status [facility] b) [facility] 06-03-2021 Follow-up visit Diagnoses/Problems Headache (784.0) (R51.9) Migraine equivalent (346.20) (G43.109) Orders Headache Start: Baclofen 10 MG Oral Tablet; TAKE 1 TABLET BY MOUTH THREE TIMES DAILY NEEDED FOR PAIN Headache, Migraine equivalent Start: Topiramate 25 MG Oral Tablet (Topamax); 1 po qhs x 1 week then 1 po bid x 1 week then 1 po qam and 2 po q pm for 1 week then 2 po bid Provider Impressions F/u in 1 month, sooner if needed. Chief Complaint 1 month f/u History of Present IllnessHere for f/u syncopal episodes/?migraine, She states that she has been getting headaches every day recently - thinks they are more tension headaches - start in her neck. She states that ibuprofen seems to help a little bit, but she doesn't like to take that often. It is better in the morning and worse throughout the day. Review of Systems Constitutional: Negative except as documented in history of present illness. Respiratory: Negative except as documented in history of present illness. Cardiovascular: Negative except as documented in history of present illness. Active Problems Confusion (298.9) (R41.0) Double vision (368.2) (H53.2) Migraine equivalent (346.20) (G43.109) Overweight with body mass index (BMI) of 25 to 25.9 in adult (278.02,V85.21) (E66.3,Z68.25) Paresthesia (782.0) (R20.2) Syncopal episodes (780.2) (R55) Thyroid nodule (241.0) (E04.1) Past Medical History History of acute sinusitis (V12.69) (Z87.09) Resolved Date: 01 Apr 2021 Surgical History History of Tonsillectomy Social History Caffeine use (V49.89) (Z78.9) Never a smoker Never smoker Occasional alcohol use Allergies No Known Allergies Recorded By: Marybeth Robertson; 07/23/2020 8:08:37 AM Current Meds Medication NameInstruction FLUoxetine HCl - 10 MG Oral CapsuleTAKE 1 CAPSULE Daily 1.5-30 MG-MCG Oral Tablet SUMAtriptan Succinate 50 MG Oral TabletTAKE 1 TABLET FOR MIGRAINE RELIEF. MAY REPEAT EVERY 2 HOURS. MAX 200MG/DAY. valACYclovir HCl - 500 MG Oral Tablet Vitals Vital Signs Recorded: 03Jun2021 04:42PM Heart Rate60 Whalyplp449 Xmtvlppmk93 Height5 ft 3 in Vmmewc007 lb BMI Uuuuqlviyz82.98 kg/m2 BSA Calculated1.67 Tobacco Useb) No O2 Tkvjotsfno60 Physical Exam General: Alert and oriented, No acute distress. Respiratory: Lungs are clear to auscultation, Respirations are non-labored, Breath sounds are equal. Cardiovascular: Normal rate, Regular rhythm, No murmur. Integumentary: Warm, Dry. Neurologic: Alert, Oriented, No focal deficits. Psychiatric: Cooperative, Appropriate mood AND affect. Signatures Electronically signed by : Bushra Lucio MD; Jun 07 2021 9:16AM EST (Author) Normal [facility] Tobacco Screening.on Tobacco use status [facility] b) No M -[facility] [address] DO Work Phone: Tobacco Screening.on Tobacco use status [facility] b) No M [facility] Work Phone: MRI Brain w/wo Contraston MR Brain WO and W contrast IV Normal [facility] 205 DO Work Phone: NR MRI BRAIN W/WO CONTRASTon 04-09-2021 NR MRI BRAIN W/WO CONTRAST Patient Name: BARRON JONES STUDY: MRI BRAIN W/WO CONTRAST; 04/09/2021 9:37 am INDICATION: episodes of numbness, tingling, slurred speech, confusion R20.2: Paresthesia H53.2: Double vision R41.0: Confusion. COMPARISON: None. ACCESSION NUMBER(S): [id number] ORDERING CLINICIAN: BUSHRA LUCIO TECHNIQUE: The brain was studied in the sagittal, axial and coronal planes utilizing FLAIR, T1 and T2 weighted images. Contrast was injected. FINDINGS: There is a normal-size ventricular system. There is no evidence of intracranial mass or extra-axial collection. The skull base, paranasal sinuses and orbital structures are unremarkable. Diffusion weighted images and associated ADC maps of the brain were unremarkable. There is no evidence of diffusion restriction to suggest the presence of acute infarction. Gradient echo T2 weighted images fail to demonstrate hemosiderin deposition or other evidence of hemorrhage. Following intravenous injection of there is no abnormal enhancement. There is normal contrast opacification of the dural venous sinuses. IMPRESSION: * There is no evidence of mass, infarction or hemorrhage. THIS EXAMINATION WAS INTERPRETED AT [facility] Electronically signed by: KHANH SARAH MD Normal [facility] Tobacco Screening.on Tobacco use status [facility] b) No M [facility] Work Phone: Absolute lymphocyte counton 03-18-2021 Lymphocytes Auto (Unsp spec) [#/Vol] 1.39 10*3/uL 0.83-4.51 [facility] Work Phone: [phone] Basophil percentageon 2021 Basophils/100 WBC (Bld) 0.3 % 0-1 [facility] Work Phone: Chloride [Moles/Vol] 108 mmol/L 98-107 [facility] Work Phone: Eosinophils/100 WBC (Bld) 1.1 % 0-5 [facility] Work Phone: [phone] Glucose [Mass/Vol] 96 mg/dL 74-106 [facility] Work Phone: Neutrophils (Bld) [#/Vol] 5.4 10*3/uL 2.0-7.7 [facility] Work Phone: Neutrophils/100 WBC (Bld) 73.8 % 47-70 [facility] Work Phone: Potassium [Moles/Vol] 3.9 mmol/L 3.5-5.1 [facility] Work Phone: Sodium [Moles/Vol] 139 mmol/L 136-145 [facility] Work Phone: WBC (Bld) [#/Vol] 7.3 10*3/uL 4.4-11.0 [facility] Work Phone: Beta hCG serum qualon 2021 Beta HCG ( test) Ql Negative [facility] Work Phone: Blood erythrocytes count (nu mber/volume)on 03-18-2021 RBC (Bld) [#/Vol] 3.92 10*6/uL 4.2-5.4 [facility] Work Phone: Blood hemoglobin measurement (mass/volume)on 03-18-2021 Hemoglobin (Bld) [Mass/Vol] 11.5 g/dL 12.0-15.0 [facility] Work Phone: Blood lymphocytes/100 leukoc yteson 03-18-2021 Lymphocytes/100 WBC (Bld) 19.1 % 19-41 [facility] Work Phone: Blood monocytes/100 leukocyt eson 03-18-2021 Monocytes/100 WBC (Bld) 5.4 % 0-10 [facility] Work Phone: Blood platelet mean volumeon 03-18-2021 Platelet mean volume (Bld) [Entitic vol] 9.1 fL 6.2-12.0 [facility] Work Phone: Determination of erythrocyte mean corpuscular volume (MCV)on 03-18-2021 MCV (RBC) [Entitic vol] 91.1 fL 81-99 [facility] Work Phone: Glucose Glucometer (BldC) [M ass/Vol]on 03-18-2021 Glucose [Mass/Vol] 88 mg/dL 70-110 [facility] Work Phone: Comment on above: MANAGEMENT OF PATIEN T CARE PER NURSING PROTOCOL Hematocrit Auto (Bld) [Volum e fraction]on 03-18-2021 Hematocrit (Bld) [Volume fraction] 35.7 % 37-47 [facility] Work Phone: Laboratory - Chemistry and C hemistry - challengeon 03-18-2021 CO2 [Moles/Vol] 25.0 mmol/L 21.0-32.0 [facility] Work Phone: Urea nitrogen/Creatinine [Mass ratio] 18.7 mg/mg - [facility] Work Phone: Laboratory - Hematology and Cell countson 03-18-2021 Erythrocyte distribution width (RBC) [Entitic vol] 42.8 fL 35.1-43.9 [facility] Work Phone: [phone] Erythrocyte distribution width (RBC) [Ratio] 13.1 % 11.6-14.6 [facility] Work Phone: Immature granulocytes/100 WBC (Bld) 0.300 % 0.0-0.9 [facility] Work Phone: Comment on above: IG% - Immature Granu locytes (promyelocytes, myelocytes and metamyelocytes) > 1% indicates that a LEFT SHIFT is Present. MCH (RBC) [Entitic mass] 29.3 pg 27.0-32.0 [facility] Work Phone: Nucleated RBC/100 WBC (Bld) [Ratio] 0 % 0-5 [facility] Work Phone: [phone] MCHC Auto (RBC) [Mass/Vol]on 03-18-2021 MCHC (RBC) [Mass/Vol] 32.2 g/dL 32-36 [facility] Work Phone: No Panel Informationon 03-18 Estimated Creatinine Clearance Calc 88.26 ml/min [facility] Work Phone: [phone] Estimated GFR (MDRD) Amer 114 mL/min >60 [facility] Work Phone: [phone] Comment on above: GFR Calc Estimated GFR (MDRD) Non-Af Amer 94 mL/min >60 [facility] Work Phone: Comment on above: Non- GFR Calc SARS-CoV-2 Antigen (Rapid) [facility] Work Phone: Platelets bldon 03-18-2021 Platelets (Bld) [#/Vol] 354 10*3/uL 150-450 [facility] Work Phone: [phone] Serum or plasma calcium jessica urement (mass/volume)on 03-18-2021 Calcium [Mass/Vol] 9.0 mg/dL 8.5-10.1 [facility] Work Phone: [phone] Serum or plasma creatinine m easurement (mass/volume)on 03-18-2021 Creatinine [Mass/Vol] 0.75 mg/dL 0.55-1.02 [facility] Work Phone: [phone] Comment on above: The validity of the calculated GFR & GFRAA in patients over 70 years has not been determined. Clinical correlation is essential. Serum or plasma urea nitroge n measurement (mass/volume)on 03-18-2021 Urea nitrogen [Mass/Vol] 14 mg/dL 7-18 [facility] Work Phone: Thin prep Papanicolaou smear with manual screeningon 03-18-2021 Thin prep Papanicolaou smear with manual screening 6 5-15 [facility] Work Phone: Tobacco Screening.on 022 Tobacco use status [facility] b) No M [facility] Work Phone: Tobacco Screening.on 021 Tobacco use status [facility] b) No M [facility] Work Phone: Radiologyon 07-28-2020 US Thyroid gland Normal [facility] Work Phone: Complete Blood Count + Diffe rentialon 07-23-2020 Basophils/100 WBC (Bld) 0.3 % 0.0 - 2.0 [facility] Phone: Erythrocyte distribution width (RBC) [Ratio] 13.5 % See Below [facility] [employer] Work Phone: Comment on above: Reference Range: 11. 5 - 14.5 Hematocrit (Bld) [Volume fraction] 37.6 % See Below [facility] [employer] Work Phone: Comment on above: Reference Range: 36. 0 - 46.0 Hemoglobin (Bld) [Mass/Vol] 12.6 g/dL See Below [facility] [employer] Work Phone: Comment on above: Reference Range: 12. 0 - 16.0 Lymphocytes/100 WBC (Bld) 26.0 % See Below [facility] [employer] Phone: Comment on above: Reference Range: 13. 0 - 44.0 MCHC (RBC) [Mass/Vol] 33.5 g/dL See Below [facility] [employer] Work Phone: Comment on above: Reference Range: 32. 0 - 36.0 MCV (RBC) [Entitic vol] 94 fL 80 - 100 [facility] Phone: Monocytes/100 WBC (Bld) 5.4 % 2.0 - 10.0 M [facility] [employer] Phone: Neutrophils/100 WBC (Bld) 67.1 % See Below [facility] Phone: Comment on above: Reference Range: 40. 0 - 80.0 Platelets (Bld) [#/Vol] 342 10*3/uL 150 - 450 [facility] [employer] Phone: RBC (Bld) [#/Vol] 4.01 {x10E12/L} See Below [facility] [employer] Phone: Comment on above: Reference Range: 4.0 0 - 5.20 WBC (Bld) [#/Vol] 6.8 10*3/uL 4.4 - 11.3 [facility] Phone: Complete Blood Count + Differential 0.00 {x10E9/L} See Below [facility] [employer] Phone: Comment on above: Reference Range: 0.0 0 - 0.10 Complete Blood Count + Differential 0.10 {x10E9/L} See Below [facility] [employer] Phone: Comment on above: Reference Range: 0.0 0 - 0.70 Complete Blood Count + Differential 0.40 {x10E9/L} See Below [facility] [employer] Phone: Comment on above: Reference Range: 0.1 0 - 1.00 Complete Blood Count + Differential 1.80 {x10E9/L} See Below [facility] [employer] Phone: Comment on above: Reference Range: 1.2 0 - 4.80 Complete Blood Count + Differential 4.60 {x10E9/L} See Below [facility] [employer] Work Phone: Comment on above: Reference Range: 1.2 0 - 7.70 Percent differential counts (%) should be interpreted in the context of the absolute cell counts (cells/L). Complete Blood Count + Differential 1.2 % 0.0 - 6.0 [facility] Work Phone: Laboratory - Chemistry and C hemistry - challengeon 07-23-2020 Albumin BCP dye [Mass/Vol] 4.3 g/dL 3.4 - 5.0 [facility] [employer] Work Phone: ALP [Catalytic activity/Vol] 55 U/L 33 - 110 [facility] [employer] Phone: ALT With P-5'-P [Catalytic activity/Vol] 10 U/L 7 - 45 [facility] [employer] Work Phone: Comment on above: Patients treated wit h Sulfasalazine may generate falsely decreased results for ALT. Anion gap [Moles/Vol] 12 mmol/L 10 - 20 [facility] [employer] Phone: AST With P-5'-P [Catalytic activity/Vol] 13 U/L 9 - 39 [facility] [employer] Work Phone: Bilirubin [Mass/Vol] 0.4 mg/dL 0.0 - 1.2 [facility] [employer] Work Phone: Calcium [Mass/Vol] 9.1 mg/dL 8.6 - 10.3 [facility] [employer] Work Phone: Chloride [Moles/Vol] 104 mmol/L 98 - 107 [facility] Work Phone: CO2 [Moles/Vol] 26 mmol/L 21 - 32 [facility] [employer] Work Phone: Creatinine [Mass/Vol] 0.65 mg/dL See Below [facility] Work Phone: Comment on above: Reference Range: 0.5 0 - 1.05 Glucose [Mass/Vol] 84 mg/dL 74 - 99 [facility] [employer] Phone: Potassium [Moles/Vol] 4.3 mmol/L 3.5 - 5.3 [facility] Phone: Protein [Mass/Vol] 7.1 g/dL 6.4 - 8.2 [facility] Phone: Sodium [Moles/Vol] 138 mmol/L 136 - 145 [facility] [employer] Phone: TSH Qn 1.22 m[IU]/L See Below [employer] [facility] [employer] Phone: Comment on above: Reference Range: 0.4 4 - 3.98 TSH testing is performed using different testing methodology at [facility] than at [facility]. Direct result comparisons should only be made within the same method. Urea nitrogen [Mass/Vol] 13 mg/dL 6 - 23 [facility] [employer] Phone: Lipid Panelon 07-23-2020 Cholesterol [Mass/Vol] 197 mg/dL 0 - 199 [facility] [employer] Phone: Comment on above: . AGE DESIRABLE BORD SHEILA HIGH HIGH 0-19 Y 0 - 169 170 - 199 >/= 200 20-24 Y 0 - 189 190 - 224 >/= 225 >24 Y 0 - 199 200 - 239 >/= 240 All ranges are based on fasting samples. Specific therapeutic targets will vary based on patient-specific cardiac risk.. Pediatric guidelines reference:Pediatrics 2011, 128(S5). Adult guidelines reference: NCEP ATPIII Guidelines, MAGDA 2001, 258:2486-97. Venipuncture immediately after or during the administration of Metamizole may lead to falsely low results. Testing should be performed immediately prior to Metamizole dosing. Cholesterol in HDL [Mass/Vol] 58.0 mg/dL [employer] Phone: Comment on above: . AGE VERY LOW LOW N ORMAL HIGH 0-19 Y < 35 < 40 40-45 ---- 20-24 Y ---- < 40 >45 ---- >24 Y ---- < 40 40-60 >60. Cholesterol in LDL [Mass/Vol] 114 mg/dL above high threshold 0 - 99 [employer] Phone: Comment on above: . NEAR BORD AGE AMELIA RABLE OPTIMAL HIGH HIGH VERY HIGH 0-19 Y 0 - 109 --- 110-129 >/= 130 ---- 20-24 Y 0 - 119 --- 120-159 >/= 160 ---- >24 Y 0 - 99 100-129 130-159 160-189 >/=190. Cholesterol.total/Choles terol in HDL [Mass ratio] 3.4 {ratio} [employer] Phone: Comment on above: REF VALUESDESIRABLE < 3.4HIGH RISK > 5.0 Triglyceride [Mass/Vol] 125 mg/dL 0 - 149 M [employer] Phone: Comment on above: . AGE DESIRABLE BORD SHEILA HIGH HIGH VERY HIGH 0 D-90 D 19 - 174 ---- ---- ----91 D- 9 Y 0 - 74 75 - 99 >/= 100 ---- 10-19 Y 0 - 89 90 - 129 >/= 130 ---- 20-24 Y 0 - 114 115 - 149 >/= 150 ---- >24 Y 0 - 149 150 - 199 200- 499 >/= 500. Venipuncture immediately after or during the administration of Metamizole may lead to falsely low results. Testing should be performed immediately prior to Metamizole dosing. Lipid Panel 25 mg/dL 0 - 40 [employer] Phone: No Panel Informationon 07-23 >60 >60 [employer] Phone: Comment on above: CALCULATIONS OF MARCELINO MATED GFR ARE PERFORMED USING THE MDRD STUDY EQUATION FOR THE IDMS-TRACEABLE CREATININE METHODS. CLIN CHEM 2007;[id number] Tobacco Screening.on 021 Tobacco use status [facility]PHS b) No M -[facility] Phone: Tobacco Screening. b) No -[facility] Work Phone: Vitamin B12, Serumon 021 Cobalamin (Vitamin B12) [Mass/Vol] 149 pg/mL below low threshold [phone] [facility] Phone: OBSOLETEon 09-12-2016 OBSOLETE Refill (WOOB) ------BARRON JONES ([id number]) [address] [facility] Department09/12/16 RAVEN MARTINEZ During your visit today, we recorded the following information about you:Maria D Zhu RN 09/12/2016 4:18 PM SignedDue for annual. Will call back to schedule annual when she has her schedule.Previous patient.Patient has been identified by name and date of : YesRX INSTRUCTIONS:Patient aware RX will be sent to pharmacy. No need to notify patient.Maria D Levi CNP, CNP 09/12/2016 4:33 PM SignedThe following approved medication requests have been transmittedelectroni isaura. Please let her know this has been sent. Thanks.Signed Prescriptions Disp Refills FLUoxetine (PROZAC) 10 mg tablet 20 tablet 1 Sig: TAKE ONE TABLET BY MOUTH EVERY DAY FOR 10 DAYS STARTING THIRD WEEK OFCONTRACEPTIVE PACK JOSE: No Authorizing Provider: IAM LEVI (KIRBY) Norethin Eber-Eth Estrad-FE (,) 1.5 mg-30 mcg (21)/75 mg (7)tablet 3 Package 0 Sig: Take 1 tablet by mouth once daily. JOSE: No Authorizing Provider: IAM LEVI (KIRBY)Kathy Diana As of Date: 09/12/2016(No Known Allergies)Date Reviewed: 11/16/2015Reviewed by: Catrina Diaz Ma - Fully AssessedReason for Visit: Refill Request [94]Visit Diagnosis:General counseling for prescription of oral contraceptives [Z30.09]Order(s):FLU oxetine (PROZAC) 10 mg tabletTAKE ONE TABLET BY MOUTH EVERY DAY FOR 10 DAYS STARTING THIRD WEEK OF CONTRACEPTIVE PACKDisp: 20 tabletRfl: 1 Norethin Eber-Eth Estrad-FE (,) 1.5 mg-30 mcg (21)/75 mg (7) tabletTake 1 tablet by mouth once daily.Disp: 3 PackageRfl: 0Prescriptions as of 09/12/2016 Sig: FLUOXETINE 10 MG TABLET TAKE ONE TABLET BY MOUTH EVER* NORETHINDRONE 1.5 MG-ETHINYL * Take 1 tablet by mouth once d* VALACYCLOVIR 1 GRAM TABLET 1 daily LIDOCAINE 2 % MUCOSAL JELLY Apply 1 application to affect* IBUPROFEN 800 MG TABLET Take 1 tablet by mouth every * D3-2000 2,000 UNIT CAPSULE TAKE ONE CAPSULE BY MOUTH CULLEN*Problem List As Of Date 09/12/2016 Noted Resolved Family history of hepatitis C [Z83.1] INVALID FOR* Onychorrhexis [L60.3] INVALID FOR* Syncopal episodes [R55] INVALID FOR* Vitamin D deficiency [E55.9] INVALID FOR* PMS (premenstrual syndrome) [N94.3] INVALID FOR*Prescriptions ordered this encounter Disp Refills Start End FLUOXETINE 10 MG TABLET 20 t* 1 09/12/2016 Sig: TAKE ONE TABLET BY MOUTH EVERY DAY FOR 10 DAYS STARTING THIRD WEEK OF CONTRACEPTIVE PACK NORETHINDRONE 1.5 MG-ETHINYL ESTRADI* 3 Pa* 0 09/12/2016 Route: ORAL Sig: Take 1 tablet by mouth once daily.Medications Discontinued During This Encounter FLUoxetine (PROZAC) 10 mg tablet 20 t* 0 08/01/2016 09/12/2016 Sig: TAKE ONE TABLET BY MOUTH EVERY DAY FOR 10 DAYS STARTING THIRD WEEK OF CONTRACEPTIVE PACK Disc: Reason for discontinue is not on file. Norethin Eber-Eth Estrad-FE (* 3 Pa* 4 07/06/2015 09/12/2016 Route: ORAL Sig: Take 1 tablet by mouth once daily. Disc: Reason for discontinue is not on file. Status:Closed by MARIA D ZHU RN on 09/12/[address] [facility] Vital Signs Date Time Vital Sign Value Performing Clinician Facility 05-06-2024 11:31-0400 Body height 160.[address] Bushra Lucio MD Work Phone: [facility] 05-06-2024 11:30-0400 Body mass index (BMI) [Ratio] 27.6 kg/m2 Dr. Bushra Lucio MD Work Phone: [facility] 05-06-2024 11:30-0400 Body weight 70.[address] Bushra Lucio MD Work Phone: [facility] 05-06-2024 11:30-0400 Diastolic blood pressure 67 mm[Hg] Dr. Bushra Lucio MD Work Phone: [facility] 05-06-2024 11:30-0400 Systolic blood pressure 99 mm[Hg] Dr. Bushra Lucio MD Work Phone: [facility] 01-26-2023 13:49-0500 Body height 160 cm Bushra Lucio MD Work Phone: [facility] 01-26-2023 13:49-0500 Body mass index (BMI) [Ratio] 26.22 kg/m2 Bushra Lucio MD Work Phone: [facility] 01-26-2023 13:49-0500 Body weight 67.13 kg Bushra Lucio MD Work Phone: [facility] 01-26-2023 13:49-0500 Diastolic blood pressure 80 mm[Hg] Bushra Lucio MD Work Phone: [facility] 01-26-2023 13:49-0500 Heart rate 81 /min Bushra Lucio MD Work Phone: [facility] 01-26-2023 13:49-0500 SaO2% (BldA) [Mass fraction] 100 % Bushra Lucio MD Work Phone: [facility] 01-26-2023 13:49-0500 Systolic blood pressure 118 mm[Hg] Bushra Lucio MD Work Phone: [facility] 12-27-2022 09:45-0400 Body height 160 cm Bushra Lucio MD Work Phone: [phone] [place] [address] 12-27-2022 09:45-0400 Body mass index (BMI) [Ratio] 26.85 kg/m2 Bushra Lucio MD Work Phone: [facility] 12-27-2022 09:45-0400 Body weight 68.77 kg Bushra Lucio MD Work Phone: [facility] 12-27-2022 09:45-0400 Diastolic blood pressure 78 mm[Hg] Bushra Lucio MD Work Phone: [facility] 12-27-2022 09:45-0400 Heart rate 99 /min Bushra Lucio MD Work Phone: [facility] 12-27-2022 09:45-0400 SaO2% (BldA) [Mass fraction] 97 % Bushra Lucio MD Work Phone: [facility] 12-27-2022 09:45-0400 Systolic blood pressure 118 mm[Hg] Bushra Lucio MD Work Phone: [facility] 06-21-2022 14:48-0400 Body height 160.[address] Bushra Lucio Work Phone: [facility] 06-21-2022 14:41-0400 Body mass index (BMI) [Ratio] 24.5 kg/m2 Dr. Bushra Lucio Work Phone: [facility] 06-21-2022 14:41-0400 Body weight 62.[address] Bushra Lucio Work Phone: [facility] 06-21-2022 14:41-0400 Diastolic blood pressure 76 mm[Hg] Dr. Bushra Lucio Work Phone: [facility] 06-21-2022 14:41-0400 Systolic blood pressure 122 mm[Hg] Dr. Bushra Lucio Work Phone: [facility] 06-10-2022 08:04-0400 Body height 160 cm Sherie Freitas [employer] Work Phone: [facility] 06-10-2022 08:04-0400 Body mass index (BMI) [Ratio] 23.74 kg/m2 Sherie Diazwood [employer] Work Phone: [facility] 06-10-2022 08:04-0400 Body weight 60.78 kg Sherie Diazwood [employer] Work Phone: [facility] 06-10-2022 08:04-0400 Diastolic blood pressure 72 mm[Hg] Sherie Fabio [employer] Work Phone: [facility] 06-10-2022 08:04-0400 Heart rate 88 /min Sherie Frankfort [employer] Work Phone: [facility] 06-10-2022 08:04-0400 Respiratory rate 16 /min Sherie Frankfort [employer] [facility] 06-10-2022 08:04-0400 SaO2% (BldA) [Mass fraction] 97 % Sherie Diazwood [employer] Work Phone: [facility] 06-10-2022 08:04-0400 Systolic blood pressure 110 mm[Hg] Sherie Freitas [employer] Work Phone: [facility] 05-13-2022 08:09-0400 Body height 160 cm Sherie Freitas [employer] Work Phone: [facility] 05-13-2022 08:09-0400 Body mass index (BMI) [Ratio] 22.92 kg/m2 Sherie Freitas [employer] Work Phone: [facility] 05-13-2022 08:09-0400 Body weight 58.7 kg Sherie Freitas [employer] Work Phone: [facility] 05-13-2022 08:09-0400 Diastolic blood pressure 68 mm[Hg] Sherie Freitas [employer] Work Phone: [facility] 05-13-2022 08:09-0400 Heart rate 79 /min Sherie Freitas [employer] Work Phone: [facility] 05-13-2022 08:09-0400 Respiratory rate 16 /min Sherie Freitas [employer] Work Phone: [facility] 05-13-2022 08:09-0400 SaO2% (BldA) [Mass fraction] 95 % Sherie Freitas [employer] Work Phone: [facility] 05-13-2022 08:09-0400 Systolic blood pressure 126 mm[Hg] Sherie Freitas [employer] Work Phone: [facility] 04-29-2022 16:04-0500 Body height 160.02 cm Bushra Lucio Work Phone: [facility] Work Phone: 04-29-2022 16:04-0500 Body mass index (BMI) [Ratio] 22.67 kg/m2 Bushra Lucio Work Phone: [facility] Work Phone: 04-29-2022 16:04-0500 Body surface area Derived from formula 1.6 m2 Bushra Lucio Work Phone: [facility] Work Phone: 04-29-2022 16:04-0500 Body weight 58.06 kg Bushra Lucio Work Phone: [facility] Work Phone: 04-29-2022 16:04-0500 Diastolic blood pressure 76 mm[Hg] Bushra Lucio Work Phone: [facility] Work Phone: 04-29-2022 16:04-0500 Heart rate 84 /min Bushra Lucio Work Phone: [facility] Work Phone: 04-29-2022 16:04-0500 SaO2% (BldA) [Mass fraction] 98 % Bushra Lucio Work Phone: [facility] Work Phone: 04-29-2022 16:04-0500 Systolic blood pressure 102 mm[Hg] Bushra Lucio Work Phone: [facility] Work Phone: 04-15-2022 16:02-0500 Body height 160.02 cm Bushra Lucio Work Phone: [facility] [address] DO Work Phone: 04-15-2022 16:02-0500 Body mass index (BMI) [Ratio] 22.41 kg/m2 Bushra Lucio Work Phone: [facility] 205 DO Work Phone: 04-15-2022 16:02-0500 Body surface area Derived from formula 1.59 m2 Bushra Lucio Work Phone: [facility] 205 DO Work Phone: 04-15-2022 16:02-0500 Body weight 57.38 kg Bushra Lucio Work Phone: [facility] 205 DO Work Phone: 04-15-2022 16:02-0500 Diastolic blood pressure 76 mm[Hg] Bushra Lucio Work Phone: [facility] 205 DO Work Phone: 04-15-2022 16:02-0500 Heart rate 72 /min Bushra Lucio Work Phone: [facility] 205 DO Work Phone: 04-15-2022 16:02-0500 SaO2% (BldA) [Mass fraction] 98 % Bushra Lucio Work Phone: [facility] 205 DO Work Phone: 04-15-2022 16:02-0500 Systolic blood pressure 108 mm[Hg] Bushra Lucio Work Phone: [facility] 205 DO Work Phone: 04-01-2022 12:08-0500 Diastolic blood pressure 89 mm[Hg] [facility] 04-01-2022 12:08-0500 Heart rate 70 /min [facility] 04-01-2022 12:08-0500 Respiratory rate 16 /min [facility] 04-01-2022 12:08-0500 SaO2% (BldA) [Mass fraction] 98 % [facility] 04-01-2022 12:08-0500 Systolic blood pressure 126 mm[Hg] [facility] 04-01-2022 10:09-0500 Body height 160.02 cm [facility] 04-01-2022 10:09-0500 Body mass index (BMI) [Ratio] 22.4 kg/m2 [facility] 04-01-2022 10:09-0500 Body temperature 96.4 [degF] [facility] 04-01-2022 10:09-0500 Body weight 57.56 kg [facility] 02-10-2022 16:17-0500 Body height 160.02 cm Bushra Lucio Work Phone: [employer] [facility] Work Phone: 02-10-2022 16:17-0500 Body mass index (BMI) [Ratio] 23.39 kg/m2 Bushra Lucio Work Phone: [employer] [facility] Work Phone: 02-10-2022 16:17-0500 Body surface area Derived from formula 1.62 m2 Bushra Lucio Work Phone: [employer] [facility] Work Phone: 02-10-2022 16:17-0500 Body weight 59.9 kg Bushra Lucio Work Phone: [employer] [facility] Work Phone: 02-10-2022 16:17-0500 Diastolic blood pressure 68 mm[Hg] Bushra Lucio Work Phone: [employer] [facility] Work Phone: 02-10-2022 16:17-0500 Heart rate 82 /min Bushra Lucio Work Phone: [facility] Work Phone: 02-10-2022 16:17-0500 SaO2% (BldA) [Mass fraction] 98 % Bushra Lucio Work Phone: [facility] Work Phone: 02-10-2022 16:17-0500 Systolic blood pressure 100 mm[Hg] Bushra Lucio Work Phone: [facility] Work Phone: 11-18-2021 16:28-0400 Body height 160.02 cm Bushra Lucio Work Phone: [facility] Work Phone: 11-18-2021 16:28-0400 Body mass index (BMI) [Ratio] 22.54 kg/m2 Bushra Lucio Work Phone: [facility] Work Phone: 11-18-2021 16:28-0400 Body surface area Derived from formula 1.6 m2 Bushra Lucio Work Phone: [facility] Work Phone: 11-18-2021 16:28-0400 Body weight 57.72 kg Bushra Lucio Work Phone: [facility] Work Phone: 11-18-2021 16:28-0400 Diastolic blood pressure 64 mm[Hg] Bushra Lucio Work Phone: [facility] Work Phone: 11-18-2021 16:28-0400 Heart rate 55 /min Bushra Lucio Work Phone: [facility] Work Phone: 11-18-2021 16:28-0400 SaO2% (BldA) [Mass fraction] 99 % Bushra Lucio Work Phone: [facility] Work Phone: 11-18-2021 16:28-0400 Systolic blood pressure 102 mm[Hg] Bushra Lucio Work Phone: [facility] Work Phone: 10-21-2021 16:22-0400 Body height 160.02 cm Bushra Lucio Work Phone: [facility] Work Phone: 10-21-2021 16:22-0400 Body mass index (BMI) [Ratio] 23.12 kg/m2 Bushra Lucio Work Phone: [facility] Work Phone: 10-21-2021 16:22-0400 Body surface area Derived from formula 1.61 m2 Bushra Lucio Work Phone: [facility] Work Phone: 10-21-2021 16:22-0400 Body weight 59.19 kg Bushra Lucio Work Phone: [facility] Work Phone: 10-21-2021 16:22-0400 Diastolic blood pressure 68 mm[Hg] Bushra Lucio Work Phone: [facility] Work Phone: 10-21-2021 16:22-0400 Heart rate 68 /min Bushra Lucio Work Phone: [facility] Work Phone: 10-21-2021 16:22-0400 SaO2% (BldA) [Mass fraction] 98 % Bushra Lucio Work Phone: [facility] Work Phone: 10-21-2021 16:22-0400 Systolic blood pressure 98 mm[Hg] Bushra Lucio Work Phone: [facility] Work Phone: 07-08-2021 16:21-0400 Body height 160.02 cm Bushra Lucio Work Phone: [facility] Work Phone: 07-08-2021 16:21-0400 Body mass index (BMI) [Ratio] 24.12 kg/m2 Bushra Lucio Work Phone: [facility] Work Phone: 07-08-2021 16:21-0400 Body surface area Derived from formula 1.64 m2 Bushra Lucio Work Phone: [facility] Work Phone: 07-08-2021 16:21-0400 Body weight 61.78 kg Bushra Lucio Work Phone: [facility] Work Phone: 07-08-2021 16:21-0400 Diastolic blood pressure 60 mm[Hg] Bushra Lucio Work Phone: [facility] Work Phone: 07-08-2021 16:21-0400 Heart rate 79 /min Bushra Lucio Work Phone: [facility] Work Phone: 07-08-2021 16:21-0400 SaO2% (BldA) [Mass fraction] 97 % Bushra Lucio Work Phone: [facility] Work Phone: 07-08-2021 16:21-0400 Systolic blood pressure 96 mm[Hg] Bushra Lucio Work Phone: [facility] Work Phone: 06-16-2021 14:56-0400 Body height 160.[address] Bushra Lucio Work Phone: [facility] Work Phone: 06-16-2021 14:56-0400 Body mass index (BMI) [Ratio] 24.7 kg/m2 Dr. Bushra Lucio Work Phone: [facility] Work Phone: 06-16-2021 14:56-0400 Body weight 63.[address] Bushra Lucio Work Phone: [facility] Work Phone: 06-16-2021 14:56-0400 Diastolic blood pressure 70 mm[Hg] Dr. Bushra Lucio Work Phone: [facility] Work Phone: 06-16-2021 14:56-0400 Systolic blood pressure 118 mm[Hg] Dr. Bushra Lucio Work Phone: [facility] Work Phone: 06-03-2021 16:42-0400 Body height 160.02 cm Bushra Lucio Work Phone: [facility] 205 DO Work Phone: 06-03-2021 16:42-0400 Body mass index (BMI) [Ratio] 24.98 kg/m2 Bushra Lucio Work Phone: [facility] 205 DO Work Phone: 06-03-2021 16:42-0400 Body surface area Derived from formula 1.67 m2 Bushra Lucio Work Phone: [facility] 205 DO Work Phone: 06-03-2021 16:42-0400 Body weight 63.96 kg Bushra Lucio Work Phone: [facility] 205 DO Work Phone: 06-03-2021 16:42-0400 Diastolic blood pressure 70 mm[Hg] Bushra Lucio Work Phone: [facility] 205 DO Work Phone: 06-03-2021 16:42-0400 Heart rate 60 /min Bushra Lucio Work Phone: [facility] 205 DO Work Phone: 06-03-2021 16:42-0400 SaO2% (BldA) [Mass fraction] 98 % Bushra Lucio Work Phone: [facility] 205 DO Work Phone: 06-03-2021 16:42-0400 Systolic blood pressure 110 mm[Hg] Bushra Lucio Work Phone: [facility] 205 DO Work Phone: 04-22-2021 16:35-0500 Body height 160.02 cm Bushra Lucio Work Phone: [facility] Work Phone: 04-22-2021 16:35-0500 Body mass index (BMI) [Ratio] 25.86 kg/m2 Bushra Lucio Work Phone: [facility] Work Phone: 04-22-2021 16:35-0500 Body surface area Derived from formula 1.69 m2 Bushra Lucio Work Phone: [facility] Work Phone: 04-22-2021 16:35-0500 Body weight 66.23 kg Bushra Lucio Work Phone: [facility] Work Phone: 04-22-2021 16:35-0500 Diastolic blood pressure 74 mm[Hg] Bushra Lucio Work Phone: [facility] Work Phone: 04-22-2021 16:35-0500 Heart rate 80 /min Bushra Lucio Work Phone: [facility] Work Phone: 04-22-2021 16:35-0500 SaO2% (BldA) [Mass fraction] 98 % Bushra Lucio Work Phone: [facility] Work Phone: 04-22-2021 16:35-0500 Systolic blood pressure 126 mm[Hg] Bushra Lucio Work Phone: [facility] Work Phone: 03-30-2021 16:38-0500 Body height 160.02 cm Bushra Lucio Work Phone: [facility] Work Phone: 03-30-2021 16:38-0500 Body mass index (BMI) [Ratio] 25.69 kg/m2 Bushra Lucio Work Phone: [facility] Work Phone: 03-30-2021 16:38-0500 Body surface area Derived from formula 1.69 m2 Bushra Lucio Work Phone: [facility] Work Phone: 03-30-2021 16:38-0500 Body temperature 98 [degF] Bushra Lucio Work Phone: [facility] Work Phone: 03-30-2021 16:38-0500 Body weight 65.77 kg Bushra Lucio Work Phone: [facility] Work Phone: 03-30-2021 16:38-0500 Diastolic blood pressure 78 mm[Hg] Bushra Lucio Work Phone: [facility] Work Phone: 03-30-2021 16:38-0500 Heart rate 70 /min Bushra Lucio Work Phone: [facility] Work Phone: 03-30-2021 16:38-0500 SaO2% (BldA) [Mass fraction] 98 % Bushra Lucio Work Phone: [facility] Work Phone: 03-30-2021 16:38-0500 Systolic blood pressure 118 mm[Hg] Bushra Lucio Work Phone: [facility] Work Phone: 03-18-2021 09:11-0500 Diastolic blood pressure 81 mm[Hg] Dr. Bushra Lucio Work Phone: [facility] Work Phone: 03-18-2021 09:11-0500 Heart rate 69 /min Dr. Bushra Lucio Work Phone: [facility] Work Phone: 03-18-2021 09:11-0500 Respiratory rate 13 /min Dr. Bushra Lucio Work Phone: [facility] Work Phone: 03-18-2021 09:11-0500 SaO2% (BldA) [Mass fraction] 99 % Dr. Bushra Lucio Work Phone: [facility] Work Phone: 03-18-2021 09:11-0500 Systolic blood pressure 125 mm[Hg] Dr. Bushra Lucio Work Phone: [facility] Work Phone: 03-18-2021 07:43-0500 Body mass index (BMI) [Ratio] 26.5 kg/m2 Dr. Bushra Lucio Work Phone: [facility] Work Phone: 03-18-2021 07:43-0500 Body temperature 98.3 [degF] Dr. Bushra Lucio Work Phone: [facility] Work Phone: 03-18-2021 07:43-0500 Body weight 67.[address] Bushra Lucio Work Phone: [facility] Work Phone: 03-11-2021 16:40-0500 Body height 160.02 cm Bushra Lucio Work Phone: [facility] Work Phone: 03-11-2021 16:40-0500 Body mass index (BMI) [Ratio] 25.92 kg/m2 Bushra Lucio Work Phone: [facility] Work Phone: 03-11-2021 16:40-0500 Body surface area Derived from formula 1.69 m2 Bushra Lucio Work Phone: [facility] Work Phone: 03-11-2021 16:40-0500 Body temperature 97.7 [degF] Bushra Lucio Work Phone: [facility] Work Phone: 03-11-2021 16:40-0500 Body weight 66.37 kg Bushra Lucio Work Phone: [facility] Work Phone: 03-11-2021 16:40-0500 Diastolic blood pressure 70 mm[Hg] Bushra Lucio Work Phone: [facility] Work Phone: 03-11-2021 16:40-0500 Heart rate 70 /min Bushra Lucio Work Phone: [facility] Work Phone: 03-11-2021 16:40-0500 SaO2% (BldA) [Mass fraction] 98 % Bushra Lucio Work Phone: [facility] Work Phone: 03-11-2021 16:40-0500 Systolic blood pressure 122 mm[Hg] Bushra Lucio Work Phone: [facility] Work Phone: 02-11-2021 08:07-0500 Body height 160.02 cm Bushra Lucio Work Phone: [facility] Work Phone: 02-11-2021 08:07-0500 Body mass index (BMI) [Ratio] 26.28 kg/m2 Bushra Lucio Work Phone: [facility] Work Phone: 02-11-2021 08:07-0500 Body surface area Derived from formula 1.7 m2 Bushra Lucio Work Phone: [facility] Work Phone: 02-11-2021 08:07-0500 Body temperature 98 [degF] Bushra Lucio Work Phone: [facility] Work Phone: 02-11-2021 08:07-0500 Body weight 67.31 kg Bushra Lucio Work Phone: [facility] Work Phone: 02-11-2021 08:07-0500 Diastolic blood pressure 68 mm[Hg] Bushra Lucio Work Phone: [facility] Work Phone: 02-11-2021 08:07-0500 Heart rate 86 /min Bushra Lucio Work Phone: [facility] Work Phone: 02-11-2021 08:07-0500 SaO2% (BldA) [Mass fraction] 98 % Bushra Lucio Work Phone: [facility] Work Phone: 02-11-2021 08:07-0500 Systolic blood pressure 104 mm[Hg] Bushra Lucio Work Phone: [facility] Work Phone: 07-23-2020 08:06-0400 Body height 160.02 cm Bushra Lucio Work Phone: [facility] Work Phone: 07-23-2020 08:06-0400 Body mass index (BMI) [Ratio] 24.45 kg/m2 Bushra Lucio Work Phone: [facility] Work Phone: 07-23-2020 08:06-0400 Body surface area Derived from formula 1.65 m2 Bushra Lucio Work Phone: [employer] [facility] Work Phone: 07-23-2020 08:06-0400 Body temperature 98.6 [degF] Bushra Lucio Work Phone: [employer] [facility] Work Phone: 07-23-2020 08:06-0400 Body weight 62.6 kg Bushra Lucio Work Phone: [employer] [facility] Work Phone: 07-23-2020 08:06-0400 Diastolic blood pressure 64 mm[Hg] Bushra Lucio Work Phone: [employer] [facility] Work Phone: 07-23-2020 08:06-0400 Heart rate 85 /min Bushra Lucio Work Phone: [employer] [facility] Work Phone: 07-23-2020 08:06-0400 Systolic blood pressure 102 mm[Hg] Bushra Lucio Work Phone: [employer] [facility] Work Phone: Encounters Encounter Date Encounter Type Care Provider Facility Start: 09-17-2024 ambulatory Bushra Lucio Fac ility:[facility] Start: 08-14-2024 ambulatory Bushra Lucio Fac ility:[facility] Start: 07-08-2024 Encounter for gynecological examination (general) (routine) without abnormal findings Jessica Mueller [facility] Start: 07-08-2024 End: 07-08-2024 ambulatory Bushra Lucio Facility:[facility] Start: 06-07-2024 ambulatory Bushra Lucio Fac ility:[facility] Start: 05-23-2024 End: 05-23-[address] Bushra Lucio MD Work Phone: [facility] Work Phone: Start: 05-23-2024 End: 05-23-2024 Patient encounter procedure Hanh SNELL -Radiology, [facility] Work Phone: Start: 05-23-2024 End: 05-23-2024 ambulatory Hanh Murrell Facility:[facility] Start: 05-21-2024 End: 05-21-[address] Bushra Lucio MD Work Phone: [facility] Work Phone: Start: 05-21-2024 End: 05-21-2024 Patient encounter procedure Hanh SNELL -Radiology, [facility] Work Phone: Start: 05-21-2024 End: 05-21-2024 ambulatory Hanh Murrell Facility:[facility] Start: 05-08-2024 End: 05-08-2024 Patient encounter procedure Hahn SNELL -[facility] Work Phone: Start: 05-08-2024 End: 05-08-2024 ambulatory Hanh Murrell Facility:[facility] Start: 05-06-2024 End: 05-06-2024 Patient encounter procedure Kaylin AVALOS -[facility] Start: 05-06-2024 End: 05-06-2024 ambulatory Bushra Lucio Facility:[facility] Start: 01-20-2024 End: 01-20-2024 Emergency department patient visit Bushra Lucio Facility:[facility] Start: 01-03-2024 End: 01-03-2024 ambulatory Bushra Lucio Facility:[facility] Start: 11-08-2023 End: 11-08-2023 ambulatory Bushra Lucio Facility:[facility] Start: 07-10-2023 End: 07-10-2023 Emergency department patient visit JULIO CÉSAR HELM CAROL[facility] Start: 01-26-2023 End: 01-26-2023 [address]RA L[address]IO [facility] Start: 01-26-2023 End: 01-26-2023 Office outpatient visit 15 minutes Bushra Lucio MD Work Phone: [facility] Comment on above: Chronic constipation (Primary Dx) Start: 12-28-2022 End: 12-28-2022 Emergency department patient visit JULIO CÉSARRaymond HELM [facility] Start: 12-27-2022 End: 12-28-2022 ambulatory BUSHRA LUCIO [facility] Start: 12-27-2022 End: 12-27-2022 Patient encounter status Bushra Lucio MD Work Phone: [facility] Work Phone: Start: 12-27-2022 End: 12-27-2022 Periodic preventive med est patient 18-39 yrs Bushra Lucio MD Work Phone: [facility] Comment on above: Well adult exam (Johanna gus Dx) Start: 06-21-2022 End: 06-21-[address] Bushra Lucio Work Phone: [facility] Work Phone: Start: 06-21-2022 End: 06-21-[address] Bushra Lucio Work Phone: [facility] Start: 06-21-2022 [facility] Start: 06-21-2022 End: 06-21-2022 Subsequent hospital visit by physician Sherie BAUMANN Work Phone: [facility] CT Scan Comment on above: Arrived Start: 06-10-2022 ambulatory [facility] Start: 06-10-2022 End: 06-10-2022 Office outpatient visit 15 minutes Sherie BAUMANN Work Phone: [facility] Neurology Comment on above: Chronic intractable headache, unspecified headache type (Primary Dx); Transient neurologic deficit; Complicated migraine; Dysarthria; Vision disturbance Start: 05-13-2022 [facility] Start: 05-13-2022 End: 05-13-2022 Office outpatient new 45 minutes Sherie Freitas [employer] Work Phone: [facility] Neurology Comment on above: Chronic intractable headache, unspecified headache type (Primary Dx); Transient neurologic deficit; Complicated migraine Start: 04-29-2022 Office outpatient vi sit 25 minutes Bushra Lucio Work Phone: [facility] Work Phone: Start: 04-29-2022 Patient encounter procedure Bushra Lucio Work Phone: [facility] Work Phone: Start: 04-29-[address] Bushra Lucio Facility:[id number] Start: 04-15-2022 Office outpatient vi sit 15 minutes Bushra Lucio Work Phone: [facility] 205 DO Work Phone: Start: 04-15-2022 Patient encounter procedure Bushra Lucio Work Phone: [facility] 205 DO Work Phone: Start: 04-15-[address] Bushra Lucio Facility:[id number] Start: 04-01-2022 End: 04-01-2022 [facility] Start: 04-01-2022 End: 04-01-2022 Emergency department patient visit [facility] Start: 02-10-[address] Bushra Lucio Facility:[id number] Start: 02-10-2022 Office outpatient vi sit 15 minutes Bushra Lucio Work Phone: [facility] 205 DO Work Phone: Start: 02-10-2022 Patient encounter procedure Bushra Lucio Work Phone: [facility] Work Phone: Start: 11-18-2021 Office outpatient vi sit 15 minutes Bushraamador Lucio Work Phone: [facility] Work Phone: Start: 11-18-[address] Bushra Lucio Facility:[id number] Start: 10-21-2021 Office outpatient vi sit 15 minutes Bushraamador Lucio Work Phone: [facility] 205 DO Work Phone: Start: 10-21-2021 Patient encounter procedure Bushraamador Lucio Work Phone: [facility] Work Phone: Start: 10-21-[address] Bushra Lucio Facility:[id number] Start: 10-14-2021 Rx Renewal Bushraamador Lucio Work Phone: [facility] Work Phone: Start: 07-27-2021 Rx Renewal Bushra Hernandez Jhontami Work Phone: [facility] Work Phone: Start: 07-08-2021 Office outpatient vi sit 15 minutes Bushar Hernandez Khadijah Work Phone: [facility] 205 DO Work Phone: Start: 07-08-2021 Patient encounter procedure Bushra Hernandez Khadijah Work Phone: [facility] Work Phone: Start: 07-08-[address] Bushra Lucio Facility:[id number] Start: 06-25-2021 Rx Renewal Bushra David Khadijah Work Phone: [facility] 205 DO Work Phone: Start: 06-16-2021 End: 06-16-[address] Bushra Lucio Work Phone: [facility]-Laboratory, Specimen Start: 06-16-2021 End: 06-16-[address] Bushra Lucio Work Phone: [facility] Start: 06-03-2021 Office outpatient vi sit 15 minutes Bushra Lucio Work Phone: [facility] 205 DO Work Phone: Start: 06-03-[address] Bushra Lucio Facility:[id number] Start: 04-22-2021 Office outpatient vi sit 15 minutes Bushra Lucio Work Phone: [facility] Work Phone: Start: 04-22-2021 Patient encounter procedure Bushra Lucio Work Phone: [facility] Work Phone: Start: 04-13-2021 Office outpatient ne w 45 minutes Bushra Lucio Work Phone: [facility] Work Phone: Start: 04-09-2021 Chart Update Bushra Lucio Work Phone: [facility] 205 DO Work Phone: Start: 03-30-2021 Office outpatient vi sit 25 minutes Bushra Lucio Work Phone: [facility] Work Phone: Start: 03-30-2021 Patient encounter procedure Bushra Lucio Work Phone: [facility] Work Phone: Start: 03-18-2021 End: 03-18-2021 Emergency department patient visit Dr. Bushra Lucio Work Phone: [facility]Emer[facility] Start: 03-11-2021 Office outpatient vi sit 15 minutes Bushra Lucio Work Phone: [facility] 205 DO Work Phone: Start: 03-11-2021 Patient encounter procedure Bushra Lucio Work Phone: [facility] Work Phone: Start: 02-11-2021 Periodic preventive med est patient 18-39 yrs Bushra Lucio Work Phone: [facility] Work Phone: Start: 08-03-2020 Chart Update Bushra Lucio Work Phone: [employer] [facility] Work Phone: Start: 07-23-2020 Chart Update Bushra David Lucio Work Phone: [employer] [facility] Work Phone: Start: 07-23-2020 Initial preventive medicine new pt age 18-39yrs Bushra Lucio Work Phone: [employer] [facility] Work Phone: Procedures Date Procedure Procedure Detail Performing Clinician Start: 05-23-2024 Plain X-ray abdomen Dr. Bushra Lucio MD Work Phone: Start: 05-21-2024 Plain X-ray abdomen Dr. Bushra Lucio MD Work Phone: Start: 12-27-2022 CBC W Auto Different ial panel - Blood BUSHRA LUCIO Start: 12-27-2022 Comprehensive metabo lic 2000 panel - Serum or Plasma BUSHRA LUCIO Start: 12-27-2022 Cyanocobalamin vitamin b-12 BUSHRA LUCIO Start: 12-27-2022 Ferritin [Mass/volum e] in Serum or Plasma BUSHRA LUCIO Start: 12-27-2022 FOLATE BUSHRA HARTLEYTAMI Start: 12-27-2022 IRON AND TIBC BUSHRAAMADOR LUCIO Start: 12-27-2022 Lipid panel BUSHRA JHONTAMI Start: 12-27-2022 Thyrotropin [Units/v olume] in Serum or Plasma BUSHRA FARMERGORDY Start: 12-27-2022 THYROXINE, TOTAL NING LUCIO Start: 12-27-2022 TRIIODOTHYRONINE, TOTAL BUSHRA LUCIO Start: 12-27-2022 VITAMIN D 25-HYDROXY,TOTAL BUSHRA LUCIO Start: 12-27-2022 Lipid 1996 panel - S kimo or Plasma Bushra Lucio MD Work Phone: Start: 06-21-2022 Ct angiography head w/contrast/noncontrast Sherie Freitas [employer] Work Phone: Start: 06-21-2022 Microscopic observat ion [Identifier] in Cervix by Cyto stain Bushra Lucio MD Work Phone: Start: 03-18-2021 SARS-CoV-2 Antigen (Rapid) Dr. Bushra Lucio Work Phone: Start: 03-18-2021 CT of head without contrast Dr. Bushra Lucio Work Phone: Start: 07-23-2020 Lipid 1996 panel - S kimo or Plasma Bushra Lucio MD Work Phone: Tonsillectomy Bushra michael Work Phone: Plan of Treatment Date Care Activity Detail Author Start: 08-28-2037 Zoster Vaccines (1 o f 2) Zoster Vaccines (1 of 2) [facility] Start: 12-28-2027 Lipid panel Lipid Panel [facility] Start: 07-23-2025 Lipid panel Lipid Panel [facility] Start: 06-21-2025 Screening for malign ant neoplasm of cervix [facility] Start: 12-29-2023 Yearly Adult Physical Yearly Adult P hysical [facility] Start: 10-28-2022 Influenza vaccination A [facility] Start: 09-08-2022 End: 09-08-2022 Patient encounter procedure 09/08/2022 Office Visit Neurology Sherie Freitas [employer] [address] [place] [address] [facility] Neurology Start: 08-11-2022 EPV, Provider: Bushra Lucio, Status: Pen, Time: 4:20 PM EPV, Provider: Bushra Lucio, Status: Pen, Time: 4:20 PM [facility] Work Phone: Start: 06-21-2022 Liquid based cervica l cytology screening [facility] Start: 06-10-2022 End: 06-11-2023 Creatinine [Mass/volume] in Serum or Plasma CREATININE SERUM Lab Routine Transient neurologic deficit Dysarthria Vision disturbance Expected: 06/10/2022, Expires: 06/11/2023 [facility] Comment on above: Expected: 06/10/2022 , Expires: 06/11/2023 Start: 06-10-2022 End: 06-11-[address] ANGIO BRAIN/NECK Imaging Routine Transient neurologic deficit Complicated migraine Dysarthria Vision disturbance Expected: 06/10/2022, Expires: 06/11/2023 [facility] Comment on above: Expected: 06/10/2022 , Expires: 06/11/2023 Start: 06-10-2022 End: 06-10-2022 Patient encounter procedure 06/10/2022 Office Visit Neurology Sherie Freitas, [employer] [address] [place] [address] [facility] Neurology Start: 04-29-2022 FUV, Provider: Bushra Lucio, Status: Pen, Time: 4:00 PM FUV, Provider: Bushra Lucio, Status: Pen, Time: 4:00 PM [facility] 205 DO Work Phone: Start: 04-01-2022 Ambulatory ECG [facility] Start: 02-10-2022 EPV, Provider: Bushra Lucio, Status: Pen, Time: 4:00 PM EPV, Provider: Bushra Lucio, Status: Pen, Time: 4:00 PM [facility] Work Phone: Start: 11-18-2021 EPV, Provider: Bushra Lucio, Status: Pen, Time: 4:20 PM EPV, Provider: Bushra Lucio, Status: Pen, Time: 4:20 PM [facility] Work Phone: Start: 10-28-2021 Influenza vaccination INFLUENZA VACC INE (#1) [facility] Start: 10-21-2021 EPV, Provider: Bushra Lucio, Status: Pen, Time: 4:20 PM EPV, Provider: Bushra Lucio, Status: Pen, Time: 4:20 PM [facility] Work Phone: Start: 08-12-2021 EPV, Provider: Bushra Lucio, Status: Pen, Time: 4:40 PM EPV, Provider: Bushra Lucio, Status: Pen, Time: 4:40 PM [facility] Work Phone: Start: 08-05-2021 EPV, Provider: Bushra Lucio, Status: Pen, Time: 8:40 AM EPV, Provider: Bushra Lucio, Status: Pen, Time: 8:40 AM [facility] Work [facility]: Start: 07-08-2021 EPV, Provider: Bushra Lucio, Status: Pen, Time: 4:20 PM EPV, Provider: Bushra Lucio, Status: Pen, Time: 4:20 PM [facility] DO Work Phone: Start: 06-03-2021 EPV, Provider: Bushra Lucio, Status: Pen, Time: 4:40 PM EPV, Provider: Bushra Lucio, Status: Pen, Time: 4:40 PM [facility] Work Phone: Start: 04-27-2021 EEG, Provider: NEURO EEG [id number] EQUIPMENT,[id number], Status: Pen, Time: 7:00 AM EEG, Provider: NEURO EEG SMC02 EQUIPMENT,[id number], Status: Pen, Time: 7:00 AM [facility] Work Phone: Start: 04-22-2021 FUV, Provider: Bushra Lucio, Status: Pen, Time: 4:40 PM FUV, Provider: Bushra Lucio, Status: Pen, Time: 4:40 PM [facility] Work Phone: Start: 04-13-2021 VIRNPVHOME, Provider : Evonne Ramos, Status: Pen, Time: 2:30 PM VIRNPVHOME, Provider: Evonne Ramos, Status: Pen, Time: 2:[address] [facility] Work Phone: Start: 08-28-2009 DTaP/Tdap/Td Vaccine s (1 - Tdap) DTaP/Tdap/Td Vaccines (1 - Tdap) [facility] Start: 08-28-2008 Screening for malign ant neoplasm of cervix [facility] Start: 08-28-2006 Third diphtheria, tetanus and acellular pertussis (DTaP) vaccination TDAP (ADULT) [facility] Start: 08-28-2005 Diabetes mellitus screening Diabetes Screening [facility] Start: 08-28-2005 Hepatitis C screening Hepatitis C Sc reening [facility] Start: 08-28-2002 HIV screening HIV SCREENING DISCUSSION [facility] Start: 08-28-1988 MMR Vaccines (1 of 1 - Standard series) MMR Vaccines (1 of 1 - Standard series) [facility] Start: 08-28-1988 Varicella vaccination Varicell a Vaccines (1 of 2 - 2-dose childhood series) [facility] Start: 02-29-1988 COVID-19 VACCINE (#1) COVID-19 VACCI NE (#1) [facility] Start: 1987 Hepatitis B Vaccines (1 of 3 - 3-dose series) Hepatitis B Vaccines (1 of 3 - 3-dose series) [facility] Start: 1987 Hepatitis C screening HEPATITI S C VIRUS SCREENING [facility] Start: 1987 HIV screening HIV Screening [facility] Start: 1987 Tetanus vaccination TETANUS [facility] Start: 1987 Yearly Adult Physical Yearly Adult P hysical [facility] CT Abdomen and Pelvi s W contrast IV [facility] Path report.final Dx Spec [facility] Patient Education [facility] Work Phone: Patient referral [facility] Work Phone: [facility] Immunizations Immunization Date Immunization Notes Care Provider [facility] 12-12-2013 influenza, seasonal, injectable, preservative free Bushra Lucio Work Phone: [facility] Work Phone: 12-12-2013 influenza virus vaccine, unspecified formulation [facility] Work Phone: [facility] Payers Date Payer Category Payer Unknown [id number] 2023 Self-pay [id number] 2017 Private Health Insurance [id number] 2017 Unknown [id number] 1987 Unknown [id number] 2.16.840.1.753970.3.579. 2.356 1987 Unknown [id number] 2.16.840.1.902614.3.579. 2.356 1987 Unknown [id number] 2.16.840.1.236874.3.579. 2.356 1987 Unknown [id number] 2.16.840.1.321751.3.579. 2.356 1987 Unknown [id number] 2.16.840.1.617556.3.579. 2.356 1987 Unknown [id number] 2.16.840.1.673161.3.579. 2.356 1987 Unknown [id number] 2.16.840.1.746363.3.579. 2.356 1987 Unknown [id number] 2.16.840.1.021381.3.579. 2.983 1987 Unknown [id number] 2.16.840.1.258918.3.579. 2.983 1987 Unknown [id number] 2.16840.1.677237.3.579. 2.983 1987 Unknown [id number] 2.16.840.1.113877.3.579. 2.1245 1987 Unknown [id number] 2.16.840.1.278314.3.579. 2.1244 1987 Unknown [id number] 2.16840.1.938507.3.579. 2.1244 1987 Unknown [id number] 2.16840.1.384224.3.579. 2.902 1987 Unknown [id number] 2.16840.1.323790.3.579. 2.902 Unknown [facility] Unknown [id number] Unknown [id number] 2.16840.1.309355.3.579. 2.462 Unknown [id number] 2.840.1.079750.3.579. 2.462 Unknown [id number] 2.16.840.1.455984.3.579. 2.462 Unknown [id number] 2.16.840.1.347046.3.579. 2.462 Unknown [id number] 2.16.840.1.207291.3.579. 2.462 Unknown [id number] 2.16.840.1.285710.3.579. 2.462 Unknown [id number] 2.16.840.1.893590.3.579. 2.462 Unknown [id number] 2.16.840.1.589283.3.579. 2.462 Unknown [id number] 2.16.840.1.282886.3.579. 2.462 Unknown [id number] 2.16.840.1.349227.3.579. 2.462 Unknown [id number] 2.16.840.1.564687.3.579. 2.462 Social History Date Type Detail Facility Start: 12-27-2022 End: 01-26-2023 Never a smoker Never a smoker [facility] Work Phone: Start: 06-16-2021 End: 06-21-2022 Tobacco smoking status WVIS Unknown if ever smoked [facility] Start: 1985 Sex Assigned At Female [facility] Start: 05-13-2022 End: 05-08-2024 Tobacco smoking status NHIS Never smoked tobacco [facility] Start: 05-13-2022 End: 12-27-2022 Tobacco use and exposure Smokeless tobacco non-user [facility] Start: 05-13-2022 End: 06-10-2022 Alcohol intake Current drinker of alcohol (finding) [facility] Start: 1985 Sex Assigned At Not on file [facility] Start: 12-27-2022 End: 01-26-2023 Alcohol intake Ex-drinker (finding) [facility] Work Phone: Start: 12-27-2022 End: 01-26-2023 Tobacco use panel [facility] Work Phone: Start: 12-17-2022 End: 01-26-2023 Exposure to SARS-CoV-2 (event) Not sure [facility] Start: 05-27-2024 End: 05-30-2024 Sex Female (finding) [facility] NEGATED: Highlighted row [facility] Mental Status Date Assessment Result Facility 03-18-2021 Cognitive function Appropriate;Cooperativ e [facility] Work Phone: Clinical Notes 04-25-2020 to 05-24-2024 Note Date & Type Note Facility 05-24-2024 Radiology Diagnostic study note [facility] Imaging Services [address] [place] [address] Abdomen Single View MR#: [id number] Acct: [id number] Name: BARRON JONES Rep #: [id number] : 1985 F 38 From: Sarmad Moore MD PCP: Dr. Bushra Lucio MD Status: REG CLI Study:Abdomen Single View Date of Exam: 05/23/24 Exam# [id number] Ordering Dr: Hanh Murrell EXAM: Abdominal single-view x-ray CLINICAL HISTORY: Sitz markers day 5 COMPARISON: 05/21/2024 TECHNIQUE: 2 supine AP views to include the entire abdomen and pelvis FINDINGS: Progression of Sitz markers. 1 marker remains at the proximal transverse colon. 8 markers are seen at the left colon. 3 markers within the sigmoid/rectum. Overall there is a jtthgbqy-wo-ugclr amount of colonic stool. No gaseous distention of bowel. Pelvic phleboliths noted. RAD/Abdomen Single View IMPRESSION: Progression of markers as above. Lwglildl-ov-xnigp amount of colonic stool. Reading Location: [id number] CC: Dr. Bushra Lucio MD; ALIS Rivas ~ Modeling Agency Manager: Signed [facility] 05-22-2024 Radiology Diagnostic study note [facility] Imaging Services [address] [place], [place] [id number] Abdomen Single View MR#: [id number] Acct: [id number] Name: BARRON JONES Rep #: [id number] : 1985 F 38 From: Sarmad Moore MD PCP: Dr. Bushra Lucio MD Status: REG CLI Study:Abdomen Single View Date of Exam: 05/21/24 Exam# [id number] Ordering Dr: Hanh Murrell EXAM: Abdomen single view CLINICAL HISTORY: Sitz markers day 3 COMPARISON: None available TECHNIQUE: Single supine AP view of the abdomen FINDINGS: Approximately 8 Sitz markers are seen at the right colon. Approximately 12 markers are seen at the left colon. 1 marker is seen at the sigmoid. Gas and stool within the colon appears moderate at the ascending colon. No gaseous distention of bowel. Bilateral pelvic phleboliths. RAD/Abdomen Single View IMPRESSION: Sitz markers as above. Reading Location: [id number] CC: Dr. Bushra Lucio MD; ALIS Rivas ~ Modeling Agency Manager: Signed [facility] 05-06-2024 Evaluation note Diagnosis Onset Date Resolution Migraines acute May 06 11:17am PMS (premenstrual syndrome) acute May 06, 2024 11:17am Abdominal pain acute April 3:55pm Constipation acute May 08, 2024 3:55pm [facility] Work Phone: 1(790) 982-437511-30-2023 History of Present illness Narrative* Malini Peña MA - 01/26/2023 1:40 PM EST Subjective Patient ID: Barron Jones is a 37 y.o. female who presents for constipation. Patient states the last 1-1/2 years it has effected her every day life. Patient states they are keri to go once a week now. HPI Review of Systems Objective There were no vitals taken for this visit. Physical Exam Assessment/Plan * Bushra Lucio MD - 01/26/2023 1:40 PM EST Subjective Barron Jones is a 37 y.o. female who presents for No chief complaint on file.. Here c/o issues with chronic constipation. She states that it has been an issue for quite some timebut has been worse recently. Has tried probiotics, miralax, stool softeners, etc without significant improvement. She is having a lot of pain and bloating with it as well. Objective Visit Vitals BP 118/80 (BP Location: Left arm, Patient Position: Sitting, BP Cuff Size: Adult) Pulse 81 Physical Exam Vitals reviewed. Constitutional: General: She is not in acute distress. Cardiovascular: Rate and Rhythm: Normal rate. Pulmonary: Effort: Pulmonary effort is normal. No respiratory distress. Skin: General: Skin is warm and dry. Neurological: General: No focal deficit present. Mental Status: She is alert. Mental status is at baseline. Assessment/Plan Problem List Items Addressed This Visit None Visit Diagnoses Chronic constipation - Primary Relevant Orders Referral to Gastroenterology [facility]: 1(150) 502-869611-30-2023 Instructions* Patient Instructions* Bushra Lucio MD - 01/26/2023 1:40 PM EST We discussed some possible causes for her constipation including side effects from some of her medications vs IBS with constipation - as she has had symptoms for many years regardless of her medications I am more inclined to think it is IBS with constipation but we will refer to GI for further evaluation and treatment. We did discuss OTC treatments and making sure she is getting enough fiber and water. We will hold off on testing at this time but if her symptoms get worse or she can't get in toGI for a while she will let us know and we may consider some imaging. [facility] Work Phone: [phone] History of Present illness Narrative* Malini Peña MA - 12/27/2022 9:40 AM EDT Subjective Patient ID: Barron Jones is a 37 y.o. female who presents for Insurance wellness check and labs to be done HPI Review of Systems Objective There were no vitals taken for this visit. Physical Exam Assessment/Plan * Bushra Lucio MD - 12/27/2022 9:40 AM EDT Subjective Barron Jones is a 37 y.o. female who presents for No chief complaint on file.. Here for wellness visit. Overall she is doing pretty well. Has a h/o migraine/headaches, anxiety/depression. She is going to [facility] and has orders for labs. Objective Visit Vitals BP 118/78 (BP Location: Left arm, Patient Position: Sitting, BP Cuff Size: Adult) Pulse 99 Physical Exam Vitals reviewed. Constitutional: General: She is not in acute distress. Cardiovascular: Rate and Rhythm: Normal rate and regular rhythm. Heart sounds: No murmur heard. Pulmonary: Effort: Pulmonary effort is normal. No respiratory distress. Breath sounds: Normal breath sounds. Skin: General: Skin is warm and dry. Neurological: General: No focal deficit present. Mental Status: She is alert. Mental status is at baseline. Assessment/Plan Problem List Items Addressed This Visit None Visit Diagnoses Well adult exam - Primary Bushra Lucio MD [facility] Work Phone: [phone] Instructions* Patient Instructions* Bushra Lucio MD - 12/27/2022 9:40 AM EDT Continue current medications. Follow up with specialists as scheduled. Follow up in 1 year, sooner if needed. [facility] Work Phone: [phone] History of Present illness Narrative* Sherie Freitas APRN-KIRBY - 06/10/2022 8:00 AM EDT NEUROLOGY OUTPATIENT FOLLOW UP 06/10/2022 Patient: Barron Jones Date of : 1985 Primary Care Provider: Bushra Lucio Neurology Provider for this visit: PASTOR Woodall - - - - - - - - - - - - - - - - - - - - - - - - - - - - - - - - - - - - - - ASSESSMENT & PLAN for this 36 y.o. female: Headaches- Combination of Tension Headaches and Migraines. 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 Cannot rule out seizures. Cannot rule outvertebrobasilar insufficiency. Patient provided with imaging from hospital outside network. The imaging was reviewed CTA Head and Neck to evaluate for vertebrobasilar insufficiency contributing To symptoms creatinine Patient to follow up in 3 months. Educated to contact the office with questions, concerns, or worsening symptoms This provider spent ample amount of time reviewing patient's chart. This includes: provider notes, therapy, labs, imaging, procedures, medications, etc.. Orders Placed This Encounter CT ANGIO BRAIN/NECK CREATININE SERUM Amitriptyline 10 MG tablet Important to note, also Past Medical History: Diagnosis Date Migraines Additionally, has no past surgical history on file. Follow-up: Return in about 3 months (around 09/09/2022), or if symptoms worsen or fail to improve. - - - - - - - - - - - - - - - - - - - - - - - - - - - - - - - - - - - - - - DATA/Testing: (MRI/CT/XR, EEG, EMG, CSF, Cardiac, Abnl Labs, Nl labs) 04/09/21 MRI Brain with and without Contrast There is no evidence of mass, infarction or hemorrhage SUBJECTIVE: Chief Complaint: headaches Interval History: Informant(s): .the patient Patient presents in follow up for headaches. At last appointment, patient was started on amitriptyline. She reports improvement with initiation of amitriptyline. She was previously suffering from a daily headache. She has only suffered from one headache associated with a aura since last appointment. Patient suffered from 12 headaches and one complicated migraine since her last appointment. Patient notes that the headaches are less intense since initiation of amitriptyline. She reports that she has regular headaches and episodes that occur twice a year. Her regular headaches are located behind her eyes and she describes the pain as pressure and throbbing. She denies nausea, vomiting, photophobia, phonophobia, or worsening of pain with movement associated with these headaches. Will take Ibuprofen or Excedrin migraine to alleviate the headaches. If the headaches are daily, she denies taking the analgesic regularly. Complicated migraines will start as a vision disturbance. She describes it as a spot in the centralpart of her vision. This spot will get larger until it suddenly goes away. After onset of vision disturbance, she will develop numbness in her hands and tongue. She also complains of dysarthria, confusion, and the urge to void. Patient describes confusion as difficulty processing information. Sometimes she will lose consciousness during these episodes. Not all the time. She denies any known alleviating factors. maybe high stress triggers them. Im not for sure. She does not take any medication during these episodes. When an episode occurs, she will usually have 15-30 minutes prior to herlosing consciousness. She reports that she will be unconscious for seconds. Patient does not alwaysdevelop a headache associated with these events. If she loses consciousness with these episodes, the symptoms will resolve within one hour of regaining consciousness. If she does not lose consciousness, the episodes can last hours. No abnormal movements, oral injuries, or incontinence is associated with the episodes where she loses consciousness. She denies lightheadedness or orthostasis. Since last appointment, patient provided office with outside records of previous imaging. This consisted of MRI, CTH, and EEG. They were all negative for acute abnormalities. Patient averages 7-8 hours of sleep each night. She is on Hydroxyzine to aide in sleep. This is mostly for sleep per patient. She follows with a Psychiatrist. Patient has history of anxiety. She denies panic attacks where she feels like she is going to . She reports panic attacks where her chestwas fluttery. Patient consumes 2 meals a day with snacks in between. She denies previous head injuries. She also reports that she was previously on Topamax but had side effects-- worsening depression and digestiveissues. Patient denies headache, diplopia, blurred vision, dysarthria, dysphagia, focal weakness, sensory changes, incoordination. Review Of Systems Currently Denies: Gen: fevers, chills, appetite or weight changes ENT: dry mouth, ringing in the ears CV: chest pain, palpitations Resp: cough, shortness of breath GI: abdominal pain, nausea : urinary incontinence, dysuria MSK: muscle cramps, Skin: rashes Hematologic: bruises Tobacco use: reports that she has never smoked. She has never used smokeless tobacco. Medications: Current Outpatient Medications Medication Instructions Amitriptyline (ELAVIL) 20 mg, Oral, DAILY AT BEDTIME EPINEPHrine 0.3 MG/0.3ML Solution Auto-injector injection INJECT 0.3 ML INTRAMUSCULARLY DIRECTED hydrOXYzine HCl 25 MG tablet TAKE 1-2 TABLET (25-50 MG) BY MOUTH DAILY AT BEDTIME NEEDED methylPREDNIsolone 4 MG Tab Therapy Pack tablet TAKE 6 TABLETS ON DAY 1 DIRECTED ON PACKAGE AND DECREASE BY 1 TAB EACH DAY FOR A TOTAL OF 6 DAYS Metoprolol succinate (TOPROL-XL) 12.5 mg, DAILY Norethin Eber-Eth Estrad-FE (JUNE 24 PO) Oral, DAILY valACYclovir (VALTREX) 500 mg, Oral, DAILY OBJECTIVE: DNFC = Does NOT follow commands HARSHA = Unable to assess BP 110/72 (BP Location: Left arm, BP Position: Sitting) Pulse 88 Resp 16 Ht 1.6 m (5' 3) Wt 60.8 kg (134 lb) SpO2 97% BMI 23.74 kg/m Smoking Status Never Physical Exam GENERAL: General Appearance: In NAD Neck: tension to posterior aspect of her neck Respiratory Effort: Normal Extremities: No edema Skin: No rashes visualized MENTAL STATUS: Alertness, Attention Span & Concentration: Normal Language: Normal Speech: Normal Orientation: Normal Memory, Recent & Remote: Normal Fund of Knowledge: Normal CRANIAL NERVES: II - Visual Post: Normal II, III: Pupils: PERRL III, IV, : Eye Movements: Normal (EOMI, No ptosis, No nystagmus) V - Facial Sensation: Normal VII: Face Symmetry & Strength: Normal VIII - Hearing: Normal IX, X - Palate:: Normal XI - Shoulder Shrug: Normal XII - Tongue Protrusion: Normal COORDINATION & GROSS MOTOR: Abnormal Movements: None Coordination Xtluyr-ws-Inoj: Normal Coordination Ihem-Ioty-Jpxn: Normal Drift: None Tone: Normal Bulk: Normal MUSCLE STRENGTH: Right Muscle Strength Left 5 Shoulder Abduction (Deltoid) 5 5 Elbow Flexion (Biceps) 5 5 Elbow Extension (Triceps) 5 5 Finger Abduction (Interossei) 5 5 Hip Flexion (Iliopsoas) 5 5 Knee Extension (Quads) 5 5 Knee Flexion (Hamstrings) 5 5 Dorsiflexion (Anterior Tibialis) 5 MOTOR KITCHEN: 5 Normal (Normal Power) 4 Mild Weakness (Movement against moderate resistance over a full range of motion) 3 Moderate Weakness (Movement against gravity over almost full range of motion) 2 Severe Weakness (Movement with gravity eliminated over almost full range of motion) 1 Trace Movement (flicker of contraction visible or palpable) 0 No Movement (No contraction visible or palpable) HARSHA Unable to Assess SENSATION: Fine Touch: Normal documented in this [facility]03-17-2023 History of Present illness Narrative* PASTOR Woodall - 05/13/2022 8:00 AM EDT NEUROLOGY OUTPATIENT NEW PATIENT 05/13/2022 Patient: Barron Jones Date of : 1985 Primary Care Provider: Bushra Lucio Neurology Provider for this visit: PASTOR Woodall - - - - - - - - - - - - - - - - - - - - - - - - - - - - - - - - - - - - - - ASSESSMENT & PLAN for this 36 y.o. female: Headaches- Combination of Tension Headaches and Migraines. 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 Cannot rule out seizures. Cannot rule outvertebrobasilar insufficiency. Patient has had testing done with an outside hospital but all records are not available to view [place] everywhere. Patient to obtain records and bring them/ have them faxed to the office Will review previous records and determine if further testing is necessary, based on those records Amitriptyline 10mg at Hs Patient to follow up in 4 weeks. Educated to contact the office with questions, concerns, or worsening symptoms This provider spent ample amount of time reviewing patient's chart. This includes: provider notes, therapy, labs, imaging, procedures, medications, etc.. Orders Placed This Encounter Amitriptyline 10 MG tablet Important to note, also Past Medical History: Diagnosis Date Migraines Additionally, has no past surgical history on file. Follow-up: Return in about 4 weeks (around 06/10/2022), or if symptoms worsen or fail to improve. - - - - - - - - - - - - - - - - - - - - - - - - - - - - - - - - - - - - - - DATA/Testing: (MRI/CT/XR, EEG, EMG, CSF, Cardiac, Abnl Labs, Nl labs) 04/09/21 MRI Brain with and without Contrast There is no evidence of mass, infarction or hemorrhage SUBJECTIVE: Chief Complaint: headaches Interval History: Informant(s): .the patient Patient presents with a complain of headaches. She first developed headaches between 6th and 7th grade. She reports that she has regular headaches and episodes that occur twice a year. Her regular headaches are located behind her eyes and she describes the pain as pressure and throbbing. She deniesnausea, vomiting, photophobia, phonophobia, or worsening of pain with movement associated with these headaches. They will occur greater than 15 days a month. In the last month, they have been occurring daily. Will take Ibuprofen or Excedrin migraine to alleviate the headaches. If the headaches are daily, she denies taking the analgesic regularly. Patient also reports episodes that will start as a vision disturbance. She describes it as a spot in the central part of her vision. This spot will get larger until it suddenly goes away. After onsetof vision disturbance, she will develop numbness in her hands and tongue. She also complains of dysarthria, confusion, and the urge to void. Patient describes confusion as difficulty processing information. Sometimes she will lose consciousness during these episodes. Not all the time. She denies any known alleviating factors. maybe high stress triggers them. Im not for sure. She does not take any medication during these episodes. When an episode occurs, she will usually have 15-30 minutesprior to her losing consciousness. She reports that she will be unconscious for seconds. Patient does not always develop a headache associated with these events. If she loses consciousness with theseepisodes, the symptoms will resolve within one hour of regaining consciousness. If she does not lose consciousness, the episodes can last hours. No abnormal movements, oral injuries, or incontinence is associated with the episodes where she loses consciousness. She denies lightheadedness or orthostasis. These episodes initially started in 6th grade. They initially only consisted of the vision dist urbance. The rest of the symptoms, associated with these episodes started in her 20's. They have also increased in frequency during that time. She averages 2 a year. She feels that the episodes are becoming more intense in the last couple years. She complains of tachycardia and not feeling right for days after these episodes. Patient reports that she was evaluated by a Neurologist once, for these episodes. I only saw them once. An EEG was obtained. She previously underwent an MRI Brain and it was negative for abnormalities. She also reports wearing a holter monitor due to the tachycardia and the syncopal episodes. Patient what other testing has been performed. The only results able to be reviewed at this time is theMRI. Patient averages 7-8 hours of sleep each night. She is on Hydroxyzine to aide in sleep. This is mostly for sleep per patient. She is also on fluoxetine. This is for PMDD. Patient was previously taking it as needed. She reports that her pcp recommended that she increase it to see if it would help with her headaches. Patient also reports that she follows with a Psychiatrist. She has been on fluoxetine for many years. Patient has history of anxiety. She denies panic attacks where she feels like she is going to . She reports panic attacks where her chest was fluttery. Patient consumes 2 meals a day with snacks in between. She denies previous head injuries. She also reports that she was previously on Topamax but had side effects-- worsening depression and digestiveissues. Patient denies headache, diplopia, blurred vision, dysarthria, dysphagia, focal weakness, sensory changes, incoordination. Review Of Systems Currently Denies: Gen: fevers, chills, appetite or weight changes ENT: dry mouth, ringing in the ears CV: chest pain, palpitations Resp: cough, shortness of breath GI: abdominal pain, nausea : urinary incontinence, dysuria MSK: muscle cramps, Skin: rashes Hematologic: bruises Tobacco use: reports that she has never smoked. She has never used smokeless tobacco. Medications: Current Outpatient Medications Medication Instructions Amitriptyline (ELAVIL) 10 mg, Oral, DAILY AT BEDTIME EPINEPHrine 0.3 MG/0.3ML Solution Auto-injector injection INJECT 0.3 ML INTRAMUSCULARLY DIRECTED hydrOXYzine HCl 25 MG tablet TAKE 1-2 TABLET (25-50 MG) BY MOUTH DAILY AT BEDTIME NEEDED methylPREDNIsolone 4 MG Tab Therapy Pack tablet TAKE 6 TABLETS ON DAY 1 DIRECTED ON PACKAGE AND DECREASE BY 1 TAB EACH DAY FOR A TOTAL OF 6 DAYS Metoprolol succinate (TOPROL-XL) 12.5 mg, Oral, DAILY Norethin Eber-Eth Estrad-FE (JUNEL FE 24 PO) Oral, DAILY valACYclovir (VALTREX) 500 mg, Oral, DAILY OBJECTIVE: DNFC = Does NOT follow commands HARSHA = Unable to assess BP 126/68 (BP Location: Left arm, BP Position: Sitting) Pulse 79 Resp 16 Ht 1.6 m (5' 3) Wt 58.7 kg (129 lb 6.4 oz) SpO2 95% BMI 22.92 kg/m Smoking Status Never Physical Exam GENERAL: General Appearance: In NAD Neck: tension to posterior aspect of her neck Respiratory Effort: Normal Extremities: No edema Skin: No rashes visualized MENTAL STATUS: Alertness, Attention Span & Concentration: Normal Language: Normal Speech: Normal Orientation: Normal Memory, Recent & Remote: Normal Fund of Knowledge: Normal CRANIAL NERVES: II - Visual Post: Normal II, III: Pupils: PERRL III, IV, : Eye Movements: Normal (EOMI, No ptosis, No nystagmus) V - Facial Sensation: Normal VII: Face Symmetry & Strength: Normal VIII - Hearing: Normal IX, X - Palate:: Normal XI - Shoulder Shrug: Normal XII - Tongue Protrusion: Normal COORDINATION & GROSS MOTOR: Abnormal Movements: None Coordination Zhuqof-gz-Niax: Normal Coordination Xtzt-Dtuw-Lkdg: Normal Drift: None Tone: Normal Bulk: Normal MUSCLE STRENGTH: Right Muscle Strength Left 5 Shoulder Abduction (Deltoid) 5 5 Elbow Flexion (Biceps) 5 5 Elbow Extension (Triceps) 5 5 Finger Abduction (Interossei) 5 5 Hip Flexion (Iliopsoas) 5 5 Knee Extension (Quads) 5 5 Knee Flexion (Hamstrings) 5 5 Dorsiflexion (Anterior Tibialis) 5 MOTOR KITCHEN: 5 Normal (Normal Power) 4 Mild Weakness (Movement against moderate resistance over a full range of motion) 3 Moderate Weakness (Movement against gravity over almost full range of motion) 2 Severe Weakness (Movement with gravity eliminated over almost full range of motion) 1 Trace Movement (flicker of contraction visible or palpable) 0 No Movement (No contraction visible or palpable) HARSHA Unable to Assess SENSATION: Fine Touch: Normal documented in this [facility]03-17-2023 Instructions* Patient Instructions* PASTOR Woodall - 05/13/2022 8:00 AM EDT Wean off of Fluoxeting- take one tabe every other day x 1 week then stop Start Amitriptyline 10mg AT bedtime- after stopping fluoxetine Please obtain the records of the EEG, neurology visit, and holter monitor report with recent ER visit. Please call with any questions and concerns. documented in this [facility]12-10-2022 History of Present illness NarrativeHere for f/u migraine. She states that she had cold symptoms last week and has been a little dizzy since then. Otherwise she is doing well. [facility] [address] DO Work Phone: [phone]) [phone] History of Present illness NarrativeHere for f/u migraine. She states that she had cold symptoms last week and has been a little dizzy since then.[facility] Work Phone: [phone] History of Present illness Narrative* Here for f/u syncopal episodes/?migraine, She states that she struggled with the increasing dose a little bit, but feels like she is doing ok with it now. She states that she has not had any auras since she has been on the medication so it may be helping. * She states that she did stop her OCPs about a month ago - she is aware of potential for defects with topamax and will be careful if she does become sexually active. [facility] DO Work Phone: [phone] History of Present illness Narrative* Here for f/u syncopal episodes/?migraine, She states that she struggled with the increasing dose a little bit, but feels like she is doing ok with it now. She states that she has not had any auras since she has been on the medication so it may be helping. * She states that she did stop her OCPs about a month ago. [facility] Work Phone: [phone] History of Present illness NarrativeHere for f/u syncopal episodes/?migraine, She states that she has been getting headaches every day recently - thinks they are more tension headaches - start in her neck. She states that ibuprofen seems to help a little bit, but she doesn't like to take that often. It is better in the morning and worse throughout the day.[facility] DO Work Phone: [phone]) [phone] History of Present illness NarrativeHere c/o cough, sinus congestion, drainage. Started before she was seen here last month, she had gone to [facility] and was told that it was allergies. She gets better for a few days but then willget worse again. Never completely goes away. She has a lot of sinus pressure and some drainage, no fevers. She has been taking Zyrtec, nasal steroid.[facility] DO Work Phone: [phone] History of Present illness NarrativeHere c/o cough, sinus congestion, drainage. Started before she was seen here last month, she had gone to [facility] and was told that it was allergies. She gets better for a few days but then willget worse again. Never completely goes away. She has a lot of sinus pressure and some drainage, no fevers. She has been taking Zyrtec, nasal steroid.[facility] Work Phone: [phone] History of Present illness Narrative* Patient being assessed today for initial evaluation of syncopal episodes patient reports that she has had syncopal episodes for several years but over the last few months months the frequency has increased. She states that it starts as spots in squiggles in her vision as well as some blurriness, then it goes to numbness in her hands and around her mouth and then sometimes she loses consciousness other times she does not, becomes confused for a few seconds and then she is back to normal. Patientdid have an MRI last week which is unremarkable. She denies any history of seizures. Denies loss ofbowel or bladder control. Would like to get an EEG just to rule out any epileptiform discharges. Her PCP did prescribe her a abortive treatment sumatriptan hand. Did recommend patient to try it the next time she starts to get the vision changes as this could possibly be related to migraine activity. Patient denies any nausea. Denies vomiting. Denies photophobia. Denies phonophobia. Endorses vision changes. Endorses speech and language deficit. Endorses numbness and tingling. We will plan on following up after the EEG is completed to determine further treatment plan. * This note was created with voice recognition software and was not corrected for typographical orgrammatical errors [id number] Work Phone: [phone]) [phone] History of Present illness NarrativeHere to get established. She needs a wellness exam for work. She has had some weight gain and fatigue recently and she would like to get her thyroid checked. She had joey chiropractor and had an Xray and was told that there were some calcifications in her thyroid. She has had some nausea off and on with her periods - started a few months ago. She does have a [employer] in [place].[facility] Work Phone: Chief complaint Narrative - Reported* Syncopal episodes * Neurologic Evaluation. * An interactive audio and video telecommunication system which permits real time communications between the patient (at the originating site) and provider (at the distant site) was utilized to providethis telehealth service. * Verbal consent was requested and obtained from BARRON JONES on this date, 04/13/2021 02:30 PM , fora telehealth visit. [id number] Work Phone: Evaluation note* Diagnosis Onset Date Resolution Status Genital herpes acute History of abnormal cervical Pap smear acute PMS (premenstrual syndrome) acute [facility] Work Phone: Evaluation noteNo assessment information available [facility] Work Phone: Evaluation note* Diagnosis Chronic intractable headache, unspecified headache type- Primary Transient neurologic deficit Other symptoms involving nervous and musculoskeletal systems Complicated migraine Migraine with aura, without mention of intractable migraine without mention of status migrainosus documented in this encounter [facility]* Diagnosis Chronic intractable headache, unspecified headache type- Primary Transient neurologic deficit Other symptoms involving nervous and musculoskeletal systems Complicated migraine Migraine with aura, without mention of intractable migraine without mention of status migrainosus Dysarthria Vision disturbance Unspecified visual disturbance documented in this encounter [facility]* Diagnosis Transient neurologic deficit Other symptoms involving nervous and musculoskeletal systems Complicated migraine Migraine with aura, without mention of intractable migraine without mention of status migrainosus Dysarthria Vision disturbance Unspecified visual disturbance documented in this encounter [facility]* Diagnosis Onset Date Resolution Status Genital herpes acute History of abnormal cervical Pap smear acute PMS (premenstrual syndrome) acute Possible exposure to STD non eactive Encounter for routine gynecological examination noneactive [facility] Work Phone: Evaluation note* Diagnosis Well adult exam- Primary Routine general medical examination at a health care facility documented in this encounter [facility] Work Phone: Evaluation note* Diagnosis Chronic constipation- Primary Unspecified constipation documented in this encounter [facility] Work Phone: History of Present illness NarrativeHere for wellness exam for work. 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 She has some allergy issues right now - is using flonase and that is helping. Otherwise she is doing well. She has h/o thyroid nodule - we will repeat thyroid US in July, she will be due for labs at that time as well.[facility] Work Phone: History of Present illness Narrative* Here for f/u recent ER visit in [place]. * She states that she has had episodes for years. She has been to the doctor and been to the ER, testing has always come back ok. * She states that she gets a visual scotoma/blurred vision, her hands get numb/tingling, it progresses to her chest and she has issues with her speech (slurring) and confusion and then sometimes she passes out, sometimes it resolves relatively quickly, sometimes it lasts longer - this last time it las chica a couple of days and so she went to the ER. She sometimes gets a headache, but not usually. No nausea. No known triggers. [facility] Work Phone: History of Present illness Narrative* Here for f/u recent ER visit in [place]. * She states that she has had episodes for years. She has been to the doctor and been to the ER, testing has always come back ok. * She states that she gets a visual scotoma/blurred vision, her hands get numb/tingling, it progresses to her chest and she has issues with her speech (slurring) and confusion and then sometimes she passes out, sometimes it resolves relatively quickly, sometimes it lasts longer - this last time it las chica a couple of days and so she went to the ER. She sometimes gets a headache, but not usually. No nausea. No known triggers. [facility] Work Phone: History of Present illness Narrative* Here for f/u recent ER visit in [place]. * She states that she has had episodes for years. She has been to the doctor and been to the ER, testing has always come back ok. * She states that she sees a pulsating light/rainbow that gets bigger an bigger/blurred vision, her hands get numb/tingling, it progresses to her chest and she has issues with her speech (slurring) andconfusion and then sometimes she passes out, sometimes it resolves relatively quickly, sometimes itlasts longer - this last time it lasted a couple of days and so she went to the ER. She sometimes gets a headache, but not usually. No nausea. No known triggers. [facility] Work Phone: History of Present illness Narrative* Here for f/u syncopal episodes/?migraine. She did see neuro and will have EEG - needs to get it scheduled. * She states that she did try the imitrex twice and thinks it helped the first time but the second time she states that it did help with the numbness but she ended up with a headache which she does notusually get. [facility] Work Phone: History of Present illness Narrative* Here for f/u syncopal episodes/?migraine. She did see neuro and will have EEG - needs to get it scheduled. * She states that she did try the imitrex twice and thinks it helped the first time but the second time she states that it did help with the numbness but she ended up with a headache which she does notusually get. [facility] Work Phone: History of Present illness NarrativeHere for f/u syncopal episodes/?migraine. She thinks she would like to stop the topamax. She has been having headaches still. Has not had any further episodes of confusion/passing out. She is having numbness and fatigue with it.[facility] Work Phone: History of Present illness NarrativeHere for f/u syncopal episodes/?migraine. She thinks she would like to stop the topamax. She has been having headaches still. Has not had any further episodes of confusion/passing out. She is having numbness and fatigue with it. She is having more fatigue with the topamax and we will work on weaning off.[facility] DO Work Phone: History of Present illness NarrativeHere for f/u migraine. She just weaned off the topamax - last dose a couple of days ago. She does feel a little better since she stopped. She states that she thinks she is doing fine at this time - we discussed potentially increasing the dose of the fluoxetine if she wants, but at this point she would like to continue as is.[facility] Work Phone: History of Present illness NarrativeHere for f/u recent ER visit at [place] for palpitations, near syncope. She states that she had a migraine episode where she passed out, felt lousy for about a week. [place] like her heart was racing - checked it at her desk and it was 120. She thought it may be due to her anxiety and she called her therapist and they told her to go to ER. She continues to struggle with headaches - the weather changes really affect her.[facility] DO Work Phone: History of Present illness Narrative* Here for f/u recent ER visit at [place] for palpitations, near syncope. She states that she had a migraine episode where she passed out, felt lousy for about a week. [place] like her heart was racing - checked it at her desk and it was 120. She thought it may be due to her anxiety and she called her therapist and they told her to go to ER. She continues to struggle with headaches - the weather changes really affect her. She has tried topamax and had side effects with that, we discussed some other options and given her palpitations we will try metoprolol - discussed risk of low BP but will monitor closely. She is also interested in seeing a neurologist regarding her headaches/migraines. * She did wear a Holter monitor and turned that in - we do not have the results of that yet, will check on that. [facility] DO Work Phone: History of Present illness NarrativeHere for f/u palpitations, near syncope, migraines. She states that she is still having headaches -everyday for about a month. She started the betablocker and did not feel good - she cut back to half a pill and feels like she is tolerating that ok.[facility] Work Phone: History of Present illness Narrative* Here for f/u palpitations, near syncope, migraines. She states that she is still having headaches -everyday for about a month. She started the beta madi and did not feel good - she cut back to half a pill and feels like she is tolerating that ok now though and will give it some more time. She take excedrin or tylenol for her headaches and those do help temporarily, but she does not want to take them all the time. We discussed a trial of prednisone and she would like to try that. * She also mentions that she has had issues with insect stings and has had to go to the ER. They suggested she keep a Rx for medrol in case she gets stung again. She states that they told her she didn't need an epipen but we will go ahead and give her one of those as well. * SHe has not heard anything from neuro yet and we will check on that referral. -[facility] Work Phone: Reason for referral (narrative)* Consultation (Routine) - Authorized Specialty Diagnoses / Procedures Referred By Shubham burgess Referred To Contact Primary Care Procedures Follow Up In Primary Care - Health Maintenance Bushra Lucio MD [address] [facility] [place] [address] Referral ID Status Reason Start Date Expiration Date V isits Requested Visits Authorized [id number] Authorized 12/27/2022 12/27/2023 1 1 [facility] Work Phone: Reason for referral (narrative)* Consultation (Routine) - Authorized Specialty Diagnoses / Procedures Referred By Shubham burgess Referred To Contact Gastroenterology Diagnoses Chronic constipation Bushra Lucio MD [address] [facility] [place] [address] Referral ID Status Reason Start Date Expiration Date Visits Requested Visits Authorized [id number] Authorized Specialty Services Required 3 01/26/2024 1 1 [facility] Work Phone: Reason for referral (narrative)No reason for referral information [facility] Work Phone: Summary Purpose Family History No Family History Records FoundUnknown Family Member Name Dates Details Family history of type C vir al hepatitis: Mother, Father(V18.8, Z83.1) Status:Active Unknown Family Member Name Dates Details Family history of type C vir al hepatitis: Mother, Father(V18.8, Z83.1) Status:Active Unknown Family Member Name Dates Details Family history of type C vir al hepatitis: Mother, Father(V18.8, Z83.1) Status:Active Unknown Family Member Name Dates Details Family history of type C vir al hepatitis: Mother, Father(V18.8, Z83.1) Status:Active Unknown Family Member Name Dates Details Family history of type C vir al hepatitis: Mother, Father(V18.8, Z83.1) Status:Active Unknown Family Member Name Dates Details Family history of type C vir al hepatitis: Mother, Father(V18.8, Z83.1) Status:Active Unknown Family Member Name Dates Details Family history of type C vir al hepatitis: Mother, Father(V18.8, Z83.1) Status:Active Unknown Family Member Name Dates Details Family history of type C vir al hepatitis: Mother, Father(V18.8, Z83.1) Status:Active Unknown Family Member Name Dates Details Family history of type C vir al hepatitis: Mother, Father(V18.8, Z83.1) Status:Active Unknown Family Member Name Dates Details Family history of type C vir al hepatitis: Mother, Father(V18.8, Z83.1) Status:Active Unknown Family Member Name Dates Details Family history of type C vir al hepatitis: Mother, Father(V18.8, Z83.1) Status:Active Unknown Family Member Name Dates Details Family history of type C vir al hepatitis: Mother, Father(V18.8, Z83.1) Status:Active Unknown Family Member Name Dates Details Family history of type C vir al hepatitis: Mother, Father(V18.8, Z83.1) Status:Active Unknown Family Member Name Dates Details Family history of type C vir al hepatitis: Mother, Father(V18.8, Z83.1) Status:Active Relationship Condition Age at Onset Recorded Date/T kassie grandmother Diabetes mellitus Unknown Malignant neoplasm of colon Unknown Unknown Family Member Name Dates Details Family history of type C vir al hepatitis: Mother, Father(V18.8, Z83.1) Status:Active Unknown Family Member Name Dates Details Family history of type C vir al hepatitis: Mother, Father(V18.8, Z83.1) Status:Active Unknown Family Member Name Dates Details Family history of type C vir al hepatitis: Mother, Father(V18.8, Z83.1) Status:Active Unknown Family Member Name Dates Details Family history of type C vir al hepatitis: Mother, Father(V18.8, Z83.1) Status:Active Unknown Family Member Name Dates Details Family history of type C vir al hepatitis: Mother, Father(V18.8, Z83.1) Status:Active Unknown Family Member Name Dates Details Family history of type C vir al hepatitis: Mother, Father(V18.8, Z83.1) Status:Active Unknown Family Member Name Dates Details Family history of type C vir al hepatitis: Mother, Father(V18.8, Z83.1) Status:Active Unknown Family Member Name Dates Details Family history of type C vir al hepatitis: Mother, Father(V18.8, Z83.1) Status:Active Unknown Family Member Name Dates Details Family history of type C vir al hepatitis: Mother, Father(V18.8, Z83.1) Status:Active Unknown Family Member Name Dates Details Family history of type C vir al hepatitis: Mother, Father(V18.8, Z83.1) Status:Active Unknown Family Member Name Dates Details Family history of type C vir al hepatitis: Mother, Father(V18.8, Z83.1) Status:Active Unknown Family Member Name Dates Details Family history of type C vir al hepatitis: Mother, Father(V18.8, Z83.1) Status:Active Unknown Family Member Name Dates Details Family history of type C vir al hepatitis: Mother, Father(V18.8, Z83.1) Status:Active Unknown Family Member Name Dates Details Family history of type C vir al hepatitis: Mother, Father(V18.8, Z83.1) Status:Active Advance Directives No Advanced Directives Records Found Advance Directive Response Recorded Date/ Time Living Will No March 18 9:46am Power of Housing Assistant Property Manager No March 18, 2021 9:46am Advance Directive Response Recorded Date/ Time Living Will No April 01 10:22am Power of Housing Assistant Property Manager No April 01, 2022 10:22am Advance Directive Response Recorded Date/ Time Living Will No April 01 11:22am Power of Housing Assistant Property Manager No April 01, 2022 11:22am Chief Complaint Establish care today with no concernsyearly physicalcough x 7 weeks, symptoms started 01/16, has taken 4 Covid tests and all have been negativecough x 7 weeks, symptoms started 01/16, has taken 4 Covid tests and [place] been [place], fain[place] E[place] f/u, fain[place] E/[place] f/u, fainting spells4 week f/u4 week f/u1 month f/uPt presents for 1 mo f/o on headaches, medications, and labs.Pt presents for 1 mo f/o on headaches, medications, and labs.3 mo f/u, discuss stopping topapmax, does not side effects, c/o numbness to hands/feet, increased fatigue, increased depression3 mo f/u, discuss stopping topapmax, does not side effects, c/o numbness to hands/feet, increased fatigue, increased depression1 mo f/u3 mo f/u3 mo f/uER f/u, [facility] 04/01/22, Holter resultsER f/u, [place] [facility] 04/01/22, Holter results2 week c/u2 week c/u Chief Complaint and Reason for Visit 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 ([employer]) Reason for Visit Genital herpes History of abnormal cervical Pap smear PMS (premenstrual syndrome) Chief Complaint PALPITATIONS HOLTER MONITOR Chief Complaint PALPITATIONS HOLTER MONITOR Annual ([employer]) Reason for Visit Genital herpes History of abnormal cervical Pap smear PMS (premenstrual syndrome) Possible exposure to STD Encounter for routine gynecological examination Chief Complaint Admit Date Migraines, on OCP May 06, 2024 11: 17am Constipation May 08, 2024 3:5 5pm eorders/sitz day May 23, 2024 4:2 7pm Reason for Visit Admit Date Migraines May 06, 2024 11: 17am PMS (premenstrual syndrome) May 06, 2024 11:17am Abdominal pain May 08, 2024 3:5 5pm Constipation May 08, 2024 3:5 5pm Reason for Referral Specialty Diagnoses / Procedures Referred By Shubham burgess Referred To Contact Diagnoses Transient neurologic deficit Complicated migraine Dysarthria Vision disturbance Procedures CT ANGIO BRAIN/NECK [place] CT ANGIO,HEAD COMBO,INCL IMAGE PROCESS [place] CT ANGIO,NECK COMBO,INCL IMAGE PROCESS Sherie Freitas, SHOULDER PUNCHER-WINDOWS SYSTEMS ARCHITECT [address] [place] [address] Referral ID Status Reason Start Date Expiration Date V isits Requested Visits Authorized [id number] Pending Review 06/10/2022 07/05/2023 1 1 Referral ID Status Reason Start Date Expiration Date Visits Re quested Visits Authorized [id number] Closed 06/10/2022 07/05/2023 1 1 Additional Source Comments INFORMATION SOURCE (unrecogn ized section and content) DATE CREATED AUTHOR 08/23/[address] [facility] DATE CREATED AUTHOR AUTHOR'S ORGANIZ ATION 08/15/2021 [facility] DATE CREATED AUTHOR AUTHOR'S ORGANIZ ATION 05/01/2022 [facility] DATE CREATED AUTHOR AUTHOR'S ORGANIZ ATION 05/03/2022 [facility] DATE CREATED AUTHOR AUTHOR'S ORGANIZ ATION 10/10/2022 [facility] DATE CREATED AUTHOR AUTHOR'S ORGANIZ ATION 01/01/2023 [facility] DATE CREATED AUTHOR AUTHOR'S ORGANIZ ATION 01/29/2023 [facility] DATE CREATED AUTHOR AUTHOR'S ORGANIZ ATION 07/17/2023 [facility] DATE CREATED AUTHOR AUTHOR'S ORGANIZ ATION 08/11/2024 [place] [facility] Goals (unrecognized section and content) Goals may be documented in a n alternate sectionGoals may be documented in an alternate sectionGoals may be documented in an alternate sectionGoals may be documented in an alternate sectionGoals may be documented in an alternate section Care Teams (unrecognized sec tion and content) Team Status: Active Member Role Status Dates Dr. Armen Baca DO Family Provider Active Dr. Bushra Lucio MD Primary Care Provider Act rubén Team Status: Inactive Member Role Status Dates Dr. Bushra Lucio MD Primary Care Provider Act rubén Dr. Sharan Peralta , DO Emergency Provider Active Team Status: Active Member Role Status Dates Dr. Bushra Lucio MD Primary Care Provider Act rubén Dr. Sharan Peralta , Attending Provider Active Skinner Pelts Relationship Specialty Start Date End Date Bushra Lucio MD [address] [phone] PCP - [facility] 05/10/22 Skinner Pelts Relationship Specialty Start Date End Date Bushra Lucio MD [address] [place] [phone] PCP - [facility] 05/10/22 Skinner Pelts Relationship Specialty Start Date End Date Bushra Lucio MD [address] [place] [phone] PCP - [facility] 05/10/22 Team Status: Inactive Member Role Status Dates Dr. Bushra Lucio MD Primary Care Provider, Re ferring Provider Active Cary Figueroa FARM OPERATIONS MANAGER, FARM OPERATIONS MANAGER-C Attending Provider Active Team Status: Inactive Member Role Status Dates Dr. Bushra Lucio MD Primary Care Provider Act rubén Dr. Sharan Peralta , Attending Provider, Emergency Provide r Active Team Status: Inactive Member Role Status Dates Dr. Bushra Lucio MD Primary Care Provider Act rubén Dr. Sharan Peralta , Attending Provider Active Team Status: Inactive Member Role Status Dates Dr. Bushra Lucio MD Primary Care Provider Act rubén Cary Figueroa FARM OPERATIONS MANAGER, FARM OPERATIONS MANAGER-C Attending Provider, Referring Provider Active Skinner Pelts Relationship Specialty Start Date End Date Bushra Lucio MD [address] [place] [address] [place] [address] PCP - General 07/23/20 [place] [address] [place] [address] [place] [address] PCP - [facility] PCP 02/27/21 Skinner Pelts Relationship Specialty Start Date End Date Bushra Lucio MD [address] [place] [phone] PCP - General 07/23/20 Bushra Lucio MD [address] [place] [id number] PCP - [facility] PCP 02/27/21 Team Status: Active Member Role Status Dates Dr. Bushra Lucio MD Primary Care Provider Act rubén Team Status: Inactive Member Role Status Dates Dr. Bushra Lucio MD Primary Care Provider Act rubén Start: May 06, 2024 End: May 06, 2024 Dr. Bushra Lucio MD Referring Provider Active Start: May 06, 2024 End: May 06, 2024 ROBBIE Livingston Attending Provider Active Start: May 06, 2024 End: May 06, 2024 Team Status: Inactive Member Role Status Dates Dr. Bushra Lucio MD Primary Care Provider Act rubén Start: May 08, 2024 End: May 08, 2024 Dr. Bushra Lucio MD Referring Provider Active Start: May 08, 2024 End: May 08, 2024 ALIS Rivas Attending Provider Active Start: May 08, 2024 End: May 08, 2024 Team Status: Inactive Member Role Status Dates Dr. Bushra Lucio MD Primary Care Provider Act rubén Start: May 21, 2024 End: May 21, 2024 ALIS Rivas Attending Provider Active Start: May 21, 2024 End: May 21, 2024 ALIS Rivas Referring Provider Active Start: May 21, 2024 End: May 21, 2024 Team Status: Active Member Role Status Dates Dr. Bushra Lucio MD Primary Care Provider Act rubén Start: May 23, 2024 ALIS Rivas Attending Provider Active Start: May 23, 2024 ALIS Rivas Referring Provider Active Start: May 23, 2024 Team Status: Inactive Member Role Status Dates Dr. Bushra Lucio MD Primary Care Provider Act rubén Start: May 23, 2024 End: May 23, 2024 ALIS Rivas Attending Provider Active Start: May 23, 2024 End: May 23, 2024 ALIS Rivas Referring Provider Active Start: May 23, 2024 End: May 23, 2024 Reason for Visit (unrecogniz ed section and content) Reason Comments New Patient Migraine Reason Comments Follow-up Headache Specialty Diagnoses / Procedures Referred By Shubham burgess Referred To Contact Diagnoses Transient neurologic deficit Complicated migraine Dysarthria Vision disturbance Procedures CT ANGIO BRAIN/NECK IL CT ANGIO,HEAD COMBO,INCL IMAGE PROCESS IL CT ANGIO,NECK COMBO,INCL IMAGE PROCESS Sherie Freitas APRN-WINDOWS SYSTEMS ARCHITECT [address] [id number] Referral ID Status Reason Start Date Expiration Date Visits Re quested Visits Authorized [id number] Closed 06/10/2022 07/05/2023 1 1 FOR RECORDS PERTAINING TO PATIENTS WHO ARE OR HAVE BEEN ENROLLED IN A CHEMICAL DEPENDENCY/SUBSTANCEABUSE PROGRAM, SOME INFORMATION MAY BE OMITTED. This clinical summary was aggregated from multiple sources. Caution should be exercised in using it in the provision of clinical care. This summary normalizes information from multiple sources, and as a consequence, information in this document may materially change the coding, format and clinical context of patient data. In addition, data may be omitted in some cases. CLINICAL DECISIONS SHOULD BE BASED ON THE PRIMARY CLINICAL RECORDS. [employer] provides no warranty or guarantee of the accuracy or completeness of information in this document.
--- NOTE | 2024-08-14 08:28 | HP.PCM_ITS ---
HPI - General General Date of Admission: 08/14/24 Date of Service: 08/14/24 Chief Complaint: Abdominal pain and constipation HPI Narrative BARRON BUCK, is a 38 F who presents with a chief complaint of constipation, family history of colon cancer and abdominal pain. Pt has had issues with constipation over the past few years. It has progressively become worse and is now having just one bm per week. She was seen by Dr. Darling about year ago and was started on Linzess. She did not have any improvements after a few weeks and discontinued it. She takes miralax a few times per week. She has some abdominal/epigastric pain. She feels acid come up when she bends over. She does not take daily acid reducing medications. Pt endorses a hx of pelvic issues with vaginismus. She has difficulty with urination due to this and will have to apply pressure to her pelvis to urinate. She has never had a colonoscopy or EGD. Her grandmother had colon cancer in her late 70s. Abdomen Single View Today K59.00 - Constipation, unspecified Abdomen Single View 5 Days K59.00 - Constipation, unspecified Abdomen/Pelvis WITH Contrast Today K59.00 - Constipation, unspecified, R10.9 - Unspecified abdominal pain [facility] Medical History Wears glasses Gastric reflux Non-smoker History of Holter monitoring Anxiety Migraines PMS (premenstrual syndrome) Home Medications ?Medication ?Instructions ?Recorded ?Last Taken ?Type cholecalciferol (vitamin D3) 50 50 mcg PO DAILY 08/13/24 History mcg (2,000 unit) tablet (Vitamin D3) cyanocobalamin (vitamin B-12) 2,500 mcg sublingual KRISTY LY 04/21/23 08/13/24 History 2,500 mcg sublingual tablet (Vitamin B-12) ferrous sulfate 325 mg (65 mg 325 mg PO DAILY 04/21/23 08/05/24 History iron) tablet guanfacine 2 mg tablet,extended 2 mg PO DAILY 04/21/23 08/05/24 History release 24 hr hydroxyzine HCl 25 mg tablet 25 mg PO BID PRN anxiety 04/21/23 08/12/24 History polyethylene glycol 3350 17 17 g PO DAILY PRN constipa tion 04/21/23 Unknown History gram/dose oral powder (Miralax) amitriptyline 75 mg tablet 75 mg PO QHS 06/26/2308/12 History valacyclovir 500 mg tablet 500 mg PO DAILY #90 tabs 08/12/24 Rx (Valtrex) magnesium 250 mg tablet 250 mg PO QHS 08/08/2408/12 History Allergy/AdvReac Type Severity Reaction Status Date / Time No Known Allergies Allergy Verified 08/14/24 08:27 Family History Grandmother Diabetes Colon cancer Surgical History [place] teeth extracted History of tonsillectomy Social History number of children: 0 current occupational status: employed current occupation: [employer] sexually active: Yes Smoking Status: Never smoker second hand exposure: No alcohol intake: current alcohol intake frequency: holidays/special occasions only substance use type: does not use caffeine: Yes what type of physical activity do you participate in: walking and bicycling frequency: 3-4 times per week seatbelt use: always do you feel safe at home: Yes additional social history: Single ROS Constitutional Constitutional: Denies fatigue, fever(s), poor appetite, weight gain or weight loss Gastrointestinal Gastrointestinal: Denies belching, bloating, change in bowel habits, change in stool character, chewing difficulty, coffee ground emesis, constipation, cramping, diarrhea, dyspepsia, dysphagia, early satiety, excessive flatus, fecal incontinence, heartburn, hematemesis, hematochezia, hemorrhoids, loose stools, melena, nausea, odynophagia, rectal bleeding, tenesmus, vomiting or weight changes Physical Exam Const alert, oriented x3, no apparent distress and healthy appearing General Appearance: cooperative GI normal to inspection, nondistended, normoactive bowel sounds, soft to palpation, non-tender and non-distended Percussion: normal to percussion Rectal Exam: deferred Results Lab / Micro Data Labs: Laboratory Results - last 24 hr 08/14/24 08:00: Urine Test Cancelled Assessment & Plan Assessment/Plan (1) Abdominal pain: (2) Constipation: PLAN: Assessment and Plan Assessment and Plan (1) Constipation: Status: Acute Plan: This is a 38 yo female pt here today for evaluation of constipation over the past 3 years. This has been progressing with just once bm per week at this point.. Pt saw a different GI about one year ago who put her on Linzess. This did not alleviate her constipation. She will complete a sitz marker to rule out a pelvis floor dysfunction vs slow transit. She does have a hx of vaginismus causing her difficulty with urination. She has never had imaging of her abdomen or pelvis. She will have a CT abd/pelvis to rule out other etiologies of constipation. Will consider colonoscopy pending these results. She will continue treatment with miralax in the mean time. -Sitz marker -CT abd pelvis -Consider colonoscopy -Continue miralx (2) Abdominal pain: Status: Acute Orders: Orders Abdomen Single View Today K59.00 - Constipation, unspecified Abdomen Single View 5 Days K59.00 - Constipation, unspecified Abdomen/Pelvis WITH Contrast Today K59.00 - Constipation, unspecified, R10.9 - Unspecified abdominal pain
[2024-08-14] MEDS: Lactated Ringers 1,000 ML 15 ML IV (08:54)
[2024-08-14 09:01] LABS: Internal QC Validated? YES +Cl - CLEAR BKGD; Pregnancy, Serum, hCG Quali. NEGATIVE Negative
--- NOTE | 2024-08-14 09:18 | PCM.PRE.AN2 ---
ASA Classification* ASA Classification ASA Classification: 2 Assessment & Plan Anesthesia* Anesthesia Assessment Anesthesia Assessment: Discussed sedation and/or anesthesia options, risks, benefits, and alternatives with patient/parents/legal guardian/POA. Questions invited. The patient/parents/legal guardian/POA seems to understand and agrees to proceed with anesthesia plan. Reviewed the physical assessment, medical history, allergy history and patient home medications list prior to surgery/procedure/anesthetic and documented any changes. Performed airway and anesthesia risk assessments. Anesthesia Type Anesthesia Type: MAC History Source History Obtained from:: Patient and Chart Anesthesia Focused Assessment* Temperature: 98.3 F Pulse Rate: 93 Blood Pressure: 119/74 Respiratory Rate: 16 Pulse Ox: 100 Oxygen Delivery Method: Room Air Airway Assessment Mouth opens: >3 cm Mallampati Score: IV Teeth Condition: Caps/Crowns (Patient has a couple crowns. They are tight.) Neck Range of motion (ROM): Full ROM Labs Anesthesia Preop lab: CBC WBC 8.1 K/mm3 (4.4-11.0) 01/20/24 09:18 01/20/24 RBC 4.08 M/mm3 (4.2-5.4) L 01/20/24 09:18 01/20/24 Hgb 12.2 g/dL (12.0-15.0) 01/20/24 09:18 01/20/24 Hct 37.5 % (37-47) 01/20/24 09:18 01/20/24 Plt Count 322 K/mm3 (150-450) 01/20/24 09:18 01/20/24 CHEMISTRY Potassium 4.0 mmol/L (3.5-5.1) 01/20/24 09:18 01/20/24 Sodium 138 mmol/L (136-145) 01/20/24 09:18 01/20/24 Magnesium 2.4 mg/dL (1.6-2.6) 04/01/22 10:40 04/01/22 BUN 11 mg/dL (7-18) 01/20/24 09:18 01/20/24 Creatinine 0.86 mg/dL (0.55-1.02) 01/20/24 09:18 01/20/24 Glucose 102 mg/dL (74-106) 01/20/24 09:18 01/20/24 POC Glucose 88 mg/dL (70-110) 03/18/21 08:49 03/18/21 TSH 1.16 uIU/mL (0.358-3.74) 07/17/23 07:35 07/17/23 COAG Tst Clinic Negative 05/06/24 11:58 05/06/24 Pre-Assessment Diagnosis/Proposed Procedure Planned Operative Procedure(s): COLONOSCOPY Anesthesia History Anesthesia History - insurance administrator: Anesthesia History - insurance administrator Hx Hospitalization No 08/08/24 11:45 Any Problems With Anesthesia No 08/08/24 11:45 Cholinesterase deficiency No 08/08/24 11:45 You/Your Family Experience No 08/08/24 11:45 fever (hyperthermia) with Relationship Recent Exposure to Contagious No 08/14/24 08:29 Disease Does patient have nerve No 08/08/24 11:45 stimulator Patient instructed to have device shut off --Does patient have Pacemaker No 08/14/24 08:30 or ICD? When Was Last Pacemaker Check QUESTION #4 FULL TEXT: You/Your Family Experience fever (hyperthermia) with Anesthesia Last Oral Intake Last Oral intake: Last Oral Intake NPO since 06:00 08/14/24 08:30 Meds taken in AM with sips of No 08/14/24 08:30 water? Meds patient instructed to take am of surgery Any additional information?: Yes NPO since: 06:00 (Patient water at 6 AM.) PONV PONV - insurance administrator: PONV - insurance administrator Female Yes 08/08/24 11:45 HX of Motion Sickness No 08/08/24 11:45 HX of N/V After Surgery No 08/08/24 11:45 Non-Smoker Yes 08/08/24 11:45 Duration of Surgery greater No 08/08/24 11:45 than 60 minutes Number of Risk Factors 2 08/08/24 11:45 PONV Score Moderate Risk 08/08/24 11:45 Height & Weight Height & Weight: Anesthesia: Height & Weight Height 5 ft 3 in 08/14/24 08:30 Weight: 68.039 kg 08/14/24 08:30 Body Mass Index (BMI) 26.5 08/14/24 08:30 Respiratory Assessment Respiratory Assessment - insurance administrator: Respiratory Tract Infection Hx - insurance administrator Hx Respiratory Tract Infection No 08/08/24 11:45 STOP Sleep Apnea STOP Sleep Apnea - insurance administrator: STOP Sleep Apnea - insurance administrator Hx Hypertension No 08/08/24 11:45 Hx Sleep Apnea No 08/08/24 11:45 CPAP BIPAP Do you snore loudly (louder No 08/08/24 11:45 than talking or can be heard Do you often feel tired/ No 08/08/24 11:45 fatigued/ sleepy during daytime? Has anyone observed you stop No 08/08/24 11:45 breathing during sleep? STOP Results Negative 08/08/24 11:45 QUESTION #5 FULL TEXT : Do you snore loudly (louder than talking or can be heard through closed doors)? 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 Specify any problems Hx of Preganancy in last 3 No 08/08/24 11:45 Months Nurse Filling Out Transfusion VCHRISTIN 08/08/24 11:45 & Questions: Date: 08/08/24 08/08/24 11:45 Time: 11:46 08/08/24 11:45 Patient unable to answer at this time (ie. confused, unrespo /Reproduction History /Reproductive History - insurance administrator: /Reproductive Hx- insurance administrator Hx Now No 08/08/24 11:45 Gestational Age (in weeks): EDC: Hx Hx Para Hx Section SAB No 08/08/24 11:45 Active Medications Active Medications: Current Medications Generic Name Dose Route Start Last Admin Trade Name Freq PRN Reason Stop Dose Admin Lactated Ringer's 1,000 mls @ 15 mls/hr 08/14/24 08:15 08/14/24 08:54 IV 15 mls/hr .Q48H TANISHA Administration PFSH Medical History Wears glasses Gastric reflux Non-smoker History of Holter monitoring Anxiety Migraines PMS (premenstrual syndrome) Home Medications ?Medication ?Instructions ?Recorded ?Last Taken ?Type cholecalciferol (vitamin D3) 50 50 mcg PO DAILY 04/21/23 08/13/24 History mcg (2,000 unit) tablet (Vitamin D3) cyanocobalamin (vitamin B-12) 2,500 mcg sublingual DAILY 04/21/23 08/13/24 History 2,500 mcg sublingual tablet (Vitamin B-12) ferrous sulfate 325 mg (65 mg 325 mg PO DAILY 04/21/23 08/05/24 History iron) tablet guanfacine 2 mg tablet,extended 2 mg PO DAILY 04/21/23 08/05/24 History release 24 hr hydroxyzine HCl 25 mg tablet 25 mg PO BID PRN anxiety 04/21/23 08/12/24 History polyethylene glycol 3350 17 17 g PO DAILY PRN constipation 04/21/23 Unknown History gram/dose oral powder (Miralax) amitriptyline 75 mg tablet 75 mg PO QHS 06/26/23 08/12/24 History valacyclovir 500 mg tablet 500 mg PO DAILY #90 tabs 06/26/23 08/12/24 Rx (Valtrex) magnesium 250 mg tablet 250 mg PO QHS 08/08/24 08/12/24 History Allergy/AdvReac Type Severity Reaction Status Date / Time No Known Allergies Allergy Verified 08/14/24 08:27 Family History Grandmother Diabetes Colon cancer Surgical History [place] teeth extracted History of tonsillectomy Social History number of children: 0 current occupational status: employed current occupation: [employer] sexually active: Yes Smoking Status: Never smoker second hand exposure: No alcohol intake: current alcohol intake frequency: holidays/special occasions only substance use type: does not use caffeine: Yes what type of physical activity do you participate in: walking and bicycling frequency: 3-4 times per week seatbelt use: always do you feel safe at home: Yes additional social history: Single Review of Systems (Anesthesia) ROS Narrative System reviewed and no additional complaints, except as documented.
--- NOTE | 2024-08-14 09:30 | COLBX_PTH ---
PATIENT: BARRON BUCK LOC: EN U#:[id number] AGE/SX: 38/F ROOM: RE08/14/[address]: Dr. Trav Gardner DO : 1985 BED: DIS: 08/14/2024 SPEC #: [id number] RECD: 08/14/24 13:05 STATUS: MARIALUISA WILLIAM #: [id number] PIERRE: 08/14/24 09:[address]: Trav Gardner DEPT: SURGICAL PATHOLOGY RECD BY: Arturo Baird ENTERED: 08/14/24 13:59 SP TYPE: COLON BX OTHR DR: Dr. Bushra Albrecht MD Tissues: A - Ileum, NOS Procedures: Surgery Specimen Level IV HEADER OPERATION: Colonoscopy with biopsy PRE-OP DIAGNOSIS: Abdominal pain, constipation TISSUE SUBMITTED: A- Terminal ileum biopsy MICROSCOPIC DIAGNOSIS A. Terminal ileum, biopsy: Normal villous architecture with prominent mucosal lymphoid aggregate, favor reactive. MICROSCOPIC DESCRIPTION Slides are reviewed. GROSS DESCRIPTION A. Received in fixative is one container labeled with the patient's name and designated Terminal ileum biopsy. The specimen consists of two irregular fragments of light campa soft tissue, each measuring 0.4 cm. The specimen is totally submitted in one cassette. VICTOR MANUEL/ 08/14/2024 CPT:11030
--- NOTE | 2024-08-14 10:15 | OP.COLON_ITS ---
Patient Name: Alma Jones Procedure Date: 08/14/2024 9:46 AM Date of : 1985 Age: 38 Procedure: Colonoscopy Indications: Generalized abdominal pain, Change in bowel habits, Failure to thrive Providers: Trav Gardner DO Referring MD: Bushra Albrecht Medicines: Monitored Anesthesia Care Patient Profile: This is a 38 year old female. Refer to note in patient chart for documentation of history and physical. Last Colonoscopy: none. The patient's first colonoscopy is today. Complications: No immediate complications. Procedure: Pre-Anesthesia Assessment: - Prior to the procedure, a History and Physical was performed, and patient medications and allergies were reviewed. The patient is competent. The risks and benefits of the procedure and the sedation options and risks were discussed with the patient. All questions were answered and informed consent was obtained. Patient identification and proposed procedure were verified in the pre-procedure area. Mental Status Examination: alert and oriented. Airway Examination: normal oropharyngeal airway and neck mobility. Respiratory Examination: clear to auscultation. CV Examination: normal. Prophylactic Antibiotics: The patient does not require prophylactic antibiotics. Prior Anticoagulants: The patient has taken no anticoagulant or antiplatelet agents. ASA Grade Assessment: II - A patient with mild systemic disease. After reviewing the risks and benefits, the patient was deemed in satisfactory condition to undergo the procedure. The anesthesia plan was to use moderate sedation / analgesia (conscious sedation). Immediately prior to administration of medications, the patient was re-assessed for adequacy to receive sedatives. The heart rate, respiratory rate, oxygen saturations, blood pressure, adequacy of pulmonary ventilation, and response to care were monitored throughout the procedure. The physical status of the patient was re-assessed after the procedure. After I obtained informed consent, the scope was passed under direct vision. Throughout the procedure, the patient's blood pressure, pulse, and oxygen saturations were monitored continuously. The pediatric colonoscope was introduced through the anus and advanced to the terminal ileum. The colonoscopy was performed without difficulty. The patient tolerated the procedure well. The quality of the bowel preparation was adequate. The ileocecal valve, appendiceal orifice, and rectum were photographed. Scope In: 9:52:54 AM Scope Withdrawal Time 0 hours 6 minutes 20 seconds Scope Out: 10:04:51 AM Total Procedure Duration Time 0 hours 11 minutes 57 seconds Findings: The perianal and digital rectal examinations were normal. The colon (entire examined portion) appeared normal. A localized area of the terminal ileum was congested. Biopsies were taken with a cold forceps for histology. Verification of patient identification for the specimen was done. Impression: - The entire examined colon is normal. - Congested mucosa in the terminal ileum. Biopsied. Recommendation: - Await pathology results. - Repeat colonoscopy for surveillance based on pathology results. - Continue present medications. Procedure Code(s): --- Professional --- 36514, Colonoscopy, flexible; with biopsy, single or multiple CPT copyright 2021 [employer]. All rights reserved. The codes documented in this report are preliminary and upon machine made shoe unit worker review may be revised to meet current compliance requirements. Trav Gardner DO 08/14/2024 10:15:24 AM This report has been signed electronically. Number of Addenda: 0 Note Initiated On: 08/14/2024 9:46 AM
--- NOTE | 2024-08-14 10:15 | OP.CCLET_ITS ---
08/14/2024 Bushra Albrecht Re : Colonoscopy procedure for Alma Jones Dear Trena This procedure was performed on Wednesday, August 14, 2024. My impressions and recommendations are as follows: Impressions : - The entire examined colon is normal. - Congested mucosa in the terminal ileum. Biopsied. Recommendations : - Await pathology results. - Repeat colonoscopy for surveillance based on pathology results. - Continue present medications. My findings are described in the full procedure note, which is enclosed. If I can be of further assistance, please feel free to contact me at . Sincerely, Trav Gardner, 08/14/2024 10:15:24 AM This report has been signed electronically.
--- NOTE | 2024-08-14 10:16 | PCM.POST.ANE ---
Anesthesia: Postop Eval I Current Vital Signs Temperature: 98.4 F Pulse Rate: 84 Blood Pressure: 103/64 Respiratory Rate: 16 Pulse Ox: 100 Oxygen Delivery Method: Room Air Assessment Airway patent: Yes Spontaneous unlabored respirations: Yes Mental status: Awake and Calm nausea: No Vomiting: No Anesthesia Complication: No Fluid Hydration Crystalloid volume administer (ml): 1,000 Total IV fluid infused: 1,000 Progress Note Anesthesia document: Postop Eval 1 completed: Yes
--- NOTE | 2024-08-14 16:12 | PCM.POSTANE2 ---
Anesthesia Postop Eval I Sum Postop Eval Completion status Anesthesia document: Postop Eval 1 completed: Yes Anesthesia Postop Eval I Summary Anesthesia Postop Eval I Summary: Anesthesia Postop Eval I: Assessment Summary Airway patent Yes 08/14/24 10:17 [email or web address] Spontaneous unlabored Yes 08/14/24 10:17 [email or web address] respirations Mental status Awake,Calm 08/14/24 10:17 [email or web address] nausea No 08/14/24 10:17 [email or web address] Vomiting No 08/14/24 10:17 [email or web address] Anesthesia Postop Eval I: Fluid Summary Crystalloid volume administer 1,000 08/14/24 10:17 [email or web address] (ml) Colloids volume administered ( ml) Blood Product volume administered (ml) Total IV fluid infused 1,000 08/14/24 10:17 [email or web address] Anesthesia Postop Eval I: Summary Notes Anesthesia Complication No 08/14/24 10:17 [email or web address] Anesthesia Complication Comment: Post-operative progress note Anesthesia: Postop Eval II Evaluation Mental status: Awake Pain Level: 0 nausea: No Vomiting: No
== END 2024-08-14 10:47 | disposition home or self-care (01) ==
LOC: EN 07:52 → AC 07:53
PROVIDERS: Anesthesiology; PCP Family Medicine; Referring Provider Family Medicine; Visit Provider Internal Medicine Gastroenterology
PROC: 0DJD8ZZ Inspection of Lower Intestinal Tract, Via Natural or Artificial Opening Endoscopic (ICD-10-PCS; CPT 45378; principal; 2024-08-14 09:25)
DX: K59.00 Constipation, unspecified (principal); Z80.0 Family history of malignant neoplasm of digestive organs; K21.9 Gastro-esophageal reflux disease without esophagitis; F41.9 Anxiety disorder, unspecified; Z79.899 Other long term (current) drug therapy
CPT/HCPCS: 45380; 84703; 88305; J2405